=== PATIENT | male | born 1940 | race Caucasian/White ===

== ENCOUNTER → 2016-11-09 | Outpatient (CLI) | payer OTHER ==
[~2016-11-09] MED LIST: CHOL2000 PO; CLC100 PO; CODCAP4; DOCU100C31 PO; DXY100 PO; FLM4 PO; MECL1TAB40 PO; MRLP17 PO; MRLP17X PO; POLY335019 PO; VTMD1000 PO
--- NOTE | 2016-11-09 12:49 | DIAGNOSTIC IMAGING REPORT ---
ULTRASOUND ART DOP LOWER EXT BILAT CLINICAL HISTORY: ARTERIAL INSUFFICIENCY claudication COMPARISON STUDY: None FINDINGS: Real-time as well as Doppler evaluation of the arterial structures of the lower legs was performed. Waveforms are triphasic throughout. Velocity characteristics are unremarkable. Blood pressure indices on the right were not obtainable due to inability to compress vessels. On the left, posterior tibial is 1.13 and dorsalis pedis is 1.61. IMPRESSION: Normal study. No significant stenotic process. Noncompressible right leg arterial vessels possibly due to calcification Electronically signed by: Saravanan Daniel M.D. 11/09/2016 12:48 PM Dictated Date/Time: 11/09/2016 12:45 PM
== END | disposition home or self-care (01) ==
LOC: C.ULTR 11:30
PROVIDERS: ATTEND Family Medicine
DX: I73.89 Other specified peripheral vascular diseases (principal)

== ENCOUNTER 2016-12-30 18:33 | Inpatient (IN) | payer OTHER ==
[~2016-12-30] VITALS: Ht 188 cm; Wt 70.0 kg
[~2016-12-30 18:33] MED LIST changes: -CHOL2000 PO; -CLC100 PO; -DOCU100C31 PO; -DXY100 PO; -FLM4 PO; -MRLP17 PO; -MRLP17X PO; -POLY335019 PO; -VTMD1000 PO
--- NOTE | 2016-12-30 20:14 | DIAGNOSTIC IMAGING REPORT ---
SINGLE VIEW CHEST CLINICAL HISTORY: Generalized weakness. Change in mental status. FINDINGS: An AP, portable, upright chest radiograph is compared to study dated 05/22/2015. The examination is degraded by portable technique and patient rotation. The heart is enlarged and there is atherosclerotic calcification of the thoracic aorta. The pulmonary vasculature is noncongested. Chronic interstitial thickening is similar to previous. A nipple shadow projects over the right lung base. No airspace consolidation, large pleural effusion, or pneumothorax is seen. The skeletal structures are osteopenic. The bony thorax is grossly intact. IMPRESSION: Cardiac enlargement with no acute cardiopulmonary abnormality. Electronically signed by: Mark Arroyo M.D. 12/30/2016 8:12 PM Dictated Date/Time: 12/30/2016 8:11 PM
--- NOTE | 2016-12-30 20:17 | EMERGENCY ROOM VISIT NOTE ---
History Report prepared by Samy: Bernard Pang Under the Supervision of: Dr. Dino Fraser D.O. First contact with patient: 19:48 Chief Complaint: WEAKNESS Stated Complaint: SICK IN STOMACH, WEAK, CANT STAND Nursing Triage Summary: TRIAGE NOTE: Pt reports "i am so weak." reports pt has had weakness x 2 days and "he fell today at dr webb's office, he can't stand up now." pt reports hx of vertigo. reports that "he had x-rays done over there at the office after he fell." pt reports "i don't know if i have lymes disease or what." History of Present Illness The patient is a 76 year old male who presents to the Emergency Room with complaints of constant weakness beginning last night. He currently rates his discomfort an 8/10 in severity. The patient states that he is too weak to stand up, and that this evening he fell. He reports that he is also experiencing back pain, neck pain, calf tenderness, knee joint pain, and vision changes. The patient notes that he went to his PCP and was told to come here because they thought he had a virus. He states that he was bit by a tick a week ago and a small rash was produced. The patient denies chest pain, sob, headache, leg edema , dizziness, and lightheadedness. He denies a history of heart problems, alcohol use, and smoking. Source of History: patient Onset: last night Position: other (global) Symptom Intensity: 8/10 Quality: other (weakness) Timing: constant Associated Symptoms: + neck pain, + back pain, No headache, No chest pain, No SOB Note: Associated symptoms: calf tenderness, knee joint pain, and vision changes. Patient denies leg edema, dizziness, and lightheadedness Review of Systems See HPI for pertinent positives & negatives. A total of 10 systems reviewed and were otherwise negative. Past Medical & Surgical Medical Problems: (1) Ambulatory dysfunction (2) Enlarged prostate (3) Heart disease (4) Hyponatremia (5) Pneumonia (6) Tick bite (7) Weakness Surgical Problems: (1) Hx of cataract surgery Family History Diabetes mellitus FH: cancer FH: heart disease FH: lung disease Hypertension Social History Smoking Status: Never Smoker Alcohol Use: none Drug Use: none Marital Status: Housing Status: lives with family Occupation Status: retired Current/Historical Medications No Active Prescriptions or Reported Meds Allergies Coded Allergies: Dust (Verified Allergy, Intermediate, CONGESTION, ITCHY EYES, SNEEZING, ) Grass (Verified Allergy, Intermediate, CONGESTION, ITCHY EYES, SNEEZING, ) POLLEN (Verified Allergy, Intermediate, CONGESTION, ITCHY EYES, SNEEZING, 12/30/16) Sulfa Antibiotics (Verified Allergy, Intermediate, RASH, 12/30/16) Physical Exam Vital Signs Date Time Temp Pulse Resp B/P (MAP) Pulse Ox O2 Delivery O2 Flow Rate FiO2 12/30/16 22:45 67 20 129/73 99 Room Air 12/30/16 21:05 93 Room Air 12/30/16 21:05 93 Room Air 12/30/16 20:50 73 12/30/16 20:48 70 138/75 72 135/82 75 130/77 12/30/16 20:48 70 20 135/78 98 Room Air 12/30/16 18:40 36.8 79 18 128/77 94 Room Air Physical Exam GENERAL: Patient is awake, alert, and in no acute distress. Patient is resting comfortably and showing no signs of anxiety EYES: The conjunctivae are clear. The pupils are round and reactive. EARS, NOSE, MOUTH AND THROAT: The nose is without any evidence of any deformity. Mucous membranes are moist tongue is midline NECK: The neck is nontender and supple. RESPIRATORY: Normal respiratory effort is noted there is no evidence of wheezing rhonchi or rales CARDIOVASCULAR: Regular rate and rhythm noted there no murmurs rubs or gallops normal S1 normal S2 GASTROINTESTINAL: The abdomen is soft. Bowel sounds are present in all quadrants. Abdomen is nontender MUSCULOSKELETAL/EXTREMITIES: There is no evidence of gross deformity full range of motion is noted in the hips and shoulders SKIN: There is no obvious evidence of any rash. There are no petechiae, pallor or cyanosis noted. Small bite on the inner right knee no definite Lyme rash was appreciated. NEUROLOGIC: Patient is awake alert and oriented x3 strength is symmetric patellar reflexes are 1+ bilaterally Medical Decision & Procedures ER Provider Diagnostic Interpretation: Radiology results as stated below per my review and radiologist interpretation: CT SCAN OF THE BRAIN WITHOUT IV CONTRAST CLINICAL HISTORY: Weakness. Change in mental status. COMPARISON STUDY: CT of the brain dated 07/12/2013. TECHNIQUE: Unenhanced axial CT scan of the brain is performed from the vertex to the skull base. CT DOSE: 537.48 mGy.cm FINDINGS: Brain parenchyma: There are age-related involutional changes noting mild subcortical and periventricular microangiopathic change. There is no hemorrhage, mass effect, or evidence of acute territorial ischemia by CT criteria. Farley-white matter is preserved. No extra-axial fluid collection is seen. Ventricles, sulci, cisterns: Prominent secondary to involutional change. Intracranial vasculature: There is atherosclerotic calcification of the cavernous carotid and vertebral arteries. Calvarium: Unremarkable. Sinuses and mastoids: The visualized paranasal sinuses are clear. The mastoid air cells are well pneumatized. There is cerumen within the right external auditory canal. Orbits: The bony orbits are grossly intact. There are bilateral ocular lens implants. IMPRESSION: There is no hemorrhage, mass effect, or evidence of acute territorial ischemia by CT criteria. Electronically signed by: Mark Arroyo M.D. 12/30/2016 8:49 PM Dictated Date/Time: 12/30/2016 8:46 PM SINGLE VIEW CHEST CLINICAL HISTORY: Generalized weakness. Change in mental status. FINDINGS: An AP, portable, upright chest radiograph is compared to study dated 05/22/2015. The examination is degraded by portable technique and patient rotation. The heart is enlarged and there is atherosclerotic calcification of the thoracic aorta. The pulmonary vasculature is noncongested. Chronic interstitial thickening is similar to previous. A nipple shadow projects over the right lung base. No airspace consolidation, large pleural effusion, or pneumothorax is seen. The skeletal structures are osteopenic. The bony thorax is grossly intact. IMPRESSION: Cardiac enlargement with no acute cardiopulmonary abnormality. Electronically signed by: Mark Arroyo M.D. 12/30/2016 8:12 PM Dictated Date/Time: 12/30/2016 8:11 PM Laboratory Results Test 12/30/16 20:30 12/30/16 20:31 12/30/16 20:45 Prothrombin Time 14.2 SECONDS (9.0-12.0) Prothromb Time International Ratio 1.3 (0.9-1.1) Activated Partial Thromboplast Time 28.0 SECONDS (21.0-31.0) Partial Thromboplastin Ratio 1.1 Total Bilirubin 0.5 mg/dl (0.2-1) Direct Bilirubin 0.1 mg/dl (0-0.2) Aspartate Amino Transf (AST/SGOT) 24 U/L (15-37) Alanine Aminotransferase (ALT/SGPT) 25 U/L (12-78) Alkaline Phosphatase 78 U/L (45-117) Total Creatine Kinase 80 U/L (39-308) Creatine Kinase MB 0.6 ng/ml (0.5-3.6) Creatine Kinase MB Ratio 0.8 (0-3.0) Troponin I < 0.015 ng/ml (0-0.045) Total Protein 6.9 gm/dl (6.4-8.2) Albumin 3.4 gm/dl (3.4-5.0) Thyroid Stimulating Hormone (TSH) 1.540 uIu/ml (0.300-4.500) Lyme Disease IgG Antibody NEG (NEG) Lyme Disease IgM Antibody NEG (NEG) Bedside Glucose 126 mg/dl (70-99) Urine Color DK YELLOW Urine Appearance CLEAR (CLEAR) Urine pH 5.5 (4.5-7.5) Urine Specific Raymond 1.028 (1.000-1.030) Urine Protein 1+ (NEG) Urine Glucose (UA) NEG (NEG) Urine Ketones 1+ (NEG) Urine Occult Blood 2+ (NEG) Urine Nitrite NEG (NEG) Urine Bilirubin NEG (NEG) Urine Urobilinogen NEG (NEG) Urine Leukocyte Esterase NEG (NEG) Urine WBC (Auto) 1-5 /hpf (0-5) Urine RBC (Auto) 5-10 /hpf (0-4) Urine Hyaline Casts (Auto) 1-5 /lpf (0-5) Urine Epithelial Cells (Auto) 20-30 /lpf (0-5) Urine Bacteria (Auto) NEG (NEG) Laboratory results per my review. Medications Administered Medications (Trade) Dose Ordered Sig/Syeda Route Start Time Stop Time Status Last Admin Dose Admin Doxycycline Hyclate (Vibramycin Cap) 100 mg 0008 ONCE PO 12/31/16 00:08 12/31/16 02:04 DC 12/31/16 03:06 100 MG ECG Indication: weakness Rate (beats per minute): 72 Rhythm: sinus rhythm Findings: 1st degree AV block, RBBB, other (No PVC) Comparison ECG Date: 05/22/15 Change: no significant change ED Course 1950: The patient was evaluated in room C08. A complete history and physical examination were performed. 2230: I reevaluated the patient. He agreed to an ambulatory trial. 2241: The ambulatory trial was not successful. 0: Upon reevaluation, the patient is resting. I discussed results and treatment plan with him. He verbalizes agreement and understanding. 2299: I discussed the patients case with Dr. Reyes [facility] Hospitalist. The patient will be evaluated for further treatment. Medical Decision Differential diagnosis: Etiologies such as metabolic, infection, hypo/hyperglycemia, electrolyte abnormalities, cardiac sources, intracerebral event, toxicologic, neurologic, as well as others were entertained. Medication Reconciliation: I attest that I have personally reviewed the patient' s current medications list. Blood pressure screening: Patient was found to have normal blood pressure on screening and does not require follow-up. The patient is a 76-year-old male who presented to the emergency department for an evaluation of multiple complaints. The patient's significant other states that he has been very weak the patient has been having difficulty ambulate. The patient has a history of vertigo but he does not describe vertigo to my history taking. I discussed the patient's laboratory and radiographic studies with him. He did not appear to have any focal neurologic deficits but on ambulation trial he had significant difficulty ambulating and appeared to be overall weak. I discussed his case with the on-call [facility] hospitalist. They've agreed to evaluate the patient in the emergency apartment for further management and disposition. Consults Time Called: 2251 Consulting Physician: Dr. Reyes [facility] Hosptialist Returned Call: [phone] I discussed the patients case with Dr. Reyes [facility] Hospitalist. The patient will be evaluated for further treatment. Impression Primary Impression: Weakness Additional Impression: Ambulatory dysfunction Scribe Attestation The scribe's documentation has been prepared under my direction and personally reviewed by me in its entirety. I confirm that the note above accurately reflects all work, treatment, procedures, and medical decision making performed by me. Departure Information Dispostion Being Evaluated By Hospitalist Prescriptions No Active Prescriptions or Reported Meds Referrals Chapito Mosquera M.D. (PCP) Patient Instructions My [facility] Problem Qualifiers
[2016-12-30 20:45] LABS: BASO % 0.2 %; BASO ABS # 0.01 K/uL (0-0.2); COMPLETE YES; HEMATOCRIT 39.6 % (42-52); LYMPH % 4.9 %; LYMPH ABS # 0.25 K/uL (1.2-3.4); MEAN CELL VOLUME 94.5 fL (80-100); MEAN CORPUSCULAR HEMOGLOBIN 31.7 pg (25-34); MEAN CORPUSCULAR HGB CONC 33.6 g/dl (32-36); MEAN PLATELET VOLUME 11.3 fL (7.4-10.4); MONO % 6.3 %; NEUT % 88.6 %; PLATELET COUNT 121 K/uL (130-400); RED BLOOD COUNT 4.19 M/uL (4.7-6.1)
--- NOTE | 2016-12-30 20:50 | DIAGNOSTIC IMAGING REPORT ---
CT SCAN OF THE BRAIN WITHOUT IV CONTRAST CLINICAL HISTORY: Weakness. Change in mental status. COMPARISON STUDY: CT of the brain dated 07/12/2013. TECHNIQUE: Unenhanced axial CT scan of the brain is performed from the vertex to the skull base. CT DOSE: 537.48 mGy.cm FINDINGS: Brain parenchyma: There are age-related involutional changes noting mild subcortical and periventricular microangiopathic change. There is no hemorrhage, mass effect, or evidence of acute territorial ischemia by CT criteria. Afrley-white matter is preserved. No extra-axial fluid collection is seen. Ventricles, sulci, cisterns: Prominent secondary to involutional change. Intracranial vasculature: There is atherosclerotic calcification of the cavernous carotid and vertebral arteries. Calvarium: Unremarkable. Sinuses and mastoids: The visualized paranasal sinuses are clear. The mastoid air cells are well pneumatized. There is cerumen within the right external auditory canal. Orbits: The bony orbits are grossly intact. There are bilateral ocular lens implants. IMPRESSION: There is no hemorrhage, mass effect, or evidence of acute territorial ischemia by CT criteria. Electronically signed by: Mark Arroyo M.D. 12/30/2016 8:49 PM Dictated Date/Time: 12/30/2016 8:46 PM
[2016-12-30 21:01] LABS: ALT/SGPT 25 U/L (12-78); BLOOD UREA NITROGEN 19 mg/dl (7-18); BUN/CREATININE RATIO 18.5 (10-20); CALCIUM 8.2 mg/dl (8.5-10.1); CARBON DIOXIDE 25 mmol/L (21-32); CHLORIDE 100 mmol/L (98-107); GLUCOSE 121 mg/dl (70-99); MAGNESIUM 2.1 mg/dl (1.8-2.4); POTASSIUM 3.9 mmol/L (3.5-5.1); SODIUM 133 mmol/L (136-145)
[2016-12-30 21:03] LABS: INR 1.3 (0.9-1.1); PARTIAL THROMBOPLASTIN RATIO 1.1; PROTHROMBIN TIME (PATIENT) 14.2 SECONDS (9.0-12.0)
[2016-12-30 21:12] LABS: ALKALINE PHOSPHATASE 78 U/L (45-117); AST/SGOT 24 U/L (15-37); CKMB/CK RATIO 0.8 (0-3.0)
[2016-12-30 21:15] LABS: URINE APPEARANCE CLEAR (CLEAR); URINE BILIRUBIN NEG (NEG); URINE COLOR DK YELLOW; URINE EPITHELIAL CELL AUTO 20-30 /lpf (0-5); URINE NITRITE NEG (NEG); URINE PH 5.5 (4.5-7.5); URINE SPECIFIC GRAVITY 1.028 (1.000-1.030); UROBILINOGEN NEG (NEG)
[2016-12-30 21:19] LABS: MANUAL MICROSCOPIC REQUIRED? NO; REVIEW REQ? NO
[2016-12-30 21:28] LABS: LYME DISEASE AB IGG NEG (NEG); LYME DISEASE AB IGM NEG (NEG)
[2016-12-31] MEDS ORDERED: DOXYCYCLINE HYCLATE 100 MG CAP PO ONE (00:08)
[2016-12-31] MEDS ORDERED: ACETAMINOPHEN 325 MG TAB PO PRN (00:15)
[2016-12-31] MEDS ORDERED: ALUMINUM/MAGNESIUM/SIMETH (MAALOX MAX) 30 ML UDC PO PRN (00:15)
[2016-12-31] MEDS ORDERED: POLYETHYLENE (MIRALAX) 17 GM PACK PO PRN (00:15)
[2016-12-31] MEDS ORDERED: ONDANSETRON INJ 2 MG/ML 2 ML VIAL IV PRN (00:15)
[2016-12-31] MEDS ORDERED: MAGNESIUM HYDROXIDE SUSP 30 ML UDC PO PRN (00:15)
[2016-12-31] MEDS ORDERED: SODIUM CHLORIDE 0.9% 1000ML 1,000 ML IV ONE (00:15)
--- NOTE | 2016-12-31 00:46 | History and Physical ---
History & Physical Date & Time of Service: Dec 31, 2016 at 00:28 Chief Complaint: Sick In Stomach, Weak, Cant Stand Primary Care Physician: Chapito Mosquera M.D. History of Present Illness Source: patient, family The patient is a 76 year old with an unremarkable past medical history who comes to the [facility] ED for evaluation of weakness. The patient notes that the weakness started today. The weakness is in both arms and legs bilaterally but does worse in his legs. He was at the eye doctor today for a routine appointment and by the end of the appointment had difficulty walking and had to be put in a wheelchair. This has never happened to him before. He did not experience LOC or any incontinence. In addition he complaints of generalized muscles, primarily in shoulders and and lower back. States that he is more comfortable lying on his side. Denies any trauma or falls to the back. Has never had this happened to him before. Otherwise, he denies any difficulty with speech or comprehension. States that he has not had any acute visual changes. He has not had any changes to his hearing, or ringing in his ears. He denies peripheral numbness or tingling. States that for many years, he experiences intermittent vertigo which is self- limited, though he did not experience it this time. He is particularly concerned about Lyme disease. States that he had tick bite on his right knee 3 days ago. Has had 3 bites this year alone. Only other medical history is summer allergies. Daughter notes that on Miguel days, he sometimes experiences malaise as well worsening allergy symptoms. He denies history of preceding viral illness. He has never had a CVA or multiple sclerosis. His mother did have a diagnosis of sarcoidosis. In the ED, Lyme serologies were negative. CT brain was negative. Past Medical/Surgical History Medical Problems: (1) Enlarged prostate Status: Chronic (2) Heart disease Status: Chronic (3) Pneumonia Status: Resolved Surgical Problems: (1) Hx of cataract surgery Status: Resolved Family History Diabetes mellitus FH: cancer FH: heart disease FH: lung disease Hypertension Sarcoidosis in mother Social History Smoking Status: Never Smoker Smokeless Tobacco Use: No Alcohol Use: none Drug Use: none Marital Status: Housing status: lives with significant other Occupational Status: retired Allergies Coded Allergies: Dust (Verified Allergy, Intermediate, CONGESTION, ITCHY EYES, SNEEZING, ) Grass (Verified Allergy, Intermediate, CONGESTION, ITCHY EYES, SNEEZING, ) POLLEN (Verified Allergy, Intermediate, CONGESTION, ITCHY EYES, SNEEZING, 12/30/16) Sulfa Antibiotics (Verified Allergy, Intermediate, RASH, 12/30/16) Home Medications No Active Prescriptions or Reported Meds Review of Systems A 10 point review of systems was negative unless stated above. Physical Exam Vital Signs Date Time Temp Pulse Resp B/P (MAP) Pulse Ox O2 Delivery O2 Flow Rate FiO2 12/30/16 22:45 67 20 129/73 99 Room Air 12/30/16 21:05 93 Room Air 12/30/16 21:05 93 Room Air 12/30/16 20:50 73 12/30/16 20:48 70 138/75 72 135/82 75 130/77 12/30/16 20:48 70 20 135/78 98 Room Air 12/30/16 18:40 36.8 79 18 128/77 94 Room Air General Appearance: WD/WN, no apparent distress Head: normocephalic, atraumatic Eyes: PERRL, EOMI ENT: hearing grossly normal, pharynx normal Neck: supple, no adenopathy, no JVD Respiratory/Chest: lungs clear, no respiratory distress Cardiovascular: regular rate, rhythm, no gallop, no murmur Abdomen/GI: normal bowel sounds, non tender, soft Back: no muscle spasm Extremities/Musculoskelatal: no calf tenderness, no pedal edema Neurologic/Psych: map compiler II-XII nml as tested, no motor/sensory deficits, alert, normal mood/affect, normal reflexes, oriented x 3 Skin: normal color, warm/dry, no rash, + pertinent finding (bite radha in side right knee, with circular margin of erythema) Lymphatic: no adenopathy Diagnostics Laboratory Results Results Past 24 Hours Test 12/30/16 20:30 12/30/16 20:31 12/30/16 20:45 Range/Units White Blood Count 5.10 4.8-10.8 K/uL Red Blood Count 4.19 4.7-6.1 M/uL Hemoglobin 13.3 14.0-18.0 g/dL Hematocrit 39.6 42-52 % Mean Corpuscular Volume 94.5 80-100 fL Mean Corpuscular Hemoglobin 31.7 25-34 pg Mean Corpuscular Hemoglobin Concent 33.6 32-36 g/dl Platelet Count 121 130-400 K/uL Mean Platelet Volume 11.3 7.4-10.4 fL Neutrophils (%) (Auto) 88.6 % Lymphocytes (%) (Auto) 4.9 % Monocytes (%) (Auto) 6.3 % Eosinophils (%) (Auto) 0.0 % Basophils (%) (Auto) 0.2 % Neutrophils # (Auto) 4.52 1.4-6.5 K/uL Lymphocytes # (Auto) 0.25 1.2-3.4 K/uL Monocytes # (Auto) 0.32 0.11-0.59 K/uL Eosinophils # (Auto) 0.00 0-0.5 K/uL Basophils # (Auto) 0.01 0-0.2 K/uL RDW Standard Deviation 44.6 36.4-46.3 fL RDW Coefficient of Variation 13.0 11.5-14.5 % Immature Granulocyte % (Auto) 0.0 % Immature Granulocyte # (Auto) 0.00 0.00-0.02 K/uL Prothrombin Time 14.2 9.0-12.0 SECONDS Prothromb Time International Ratio 1.3 0.9-1.1 Activated Partial Thromboplast Time 28.0 21.0-31.0 SECONDS Partial Thromboplastin Ratio 1.1 Sodium Level 133 136-145 mmol/L Potassium Level 3.9 3.5-5.1 mmol/L Chloride Level 100 98-107 mmol/L Carbon Dioxide Level 25 21-32 mmol/L Anion Gap 8.0 3-11 mmol/L Blood Urea Nitrogen 19 7-18 mg/dl Creatinine 1.00 0.60-1.40 mg/dl Est Creatinine Clear Calc Drug Dose 64.2 ml/min Estimated GFR () 85.6 Estimated GFR (Non- 73.8 BUN/Creatinine Ratio 18.5 10-20 Random Glucose 121 70-99 mg/dl Calcium Level 8.2 8.5-10.1 mg/dl Magnesium Level 2.1 1.8-2.4 mg/dl Total Bilirubin 0.5 0.2-1 mg/dl Direct Bilirubin 0.1 0-0.2 mg/dl Aspartate Amino Transf (AST/SGOT) 24 15-37 U/L Alanine Aminotransferase (ALT/SGPT) 25 12-78 U/L Alkaline Phosphatase 78 45-117 U/L Total Creatine Kinase 80 39-308 U/L Creatine Kinase MB 0.6 0.5-3.6 ng/ml Creatine Kinase MB Ratio 0.8 0-3.0 Troponin I < 0.015 0-0.045 ng/ml Total Protein 6.9 6.4-8.2 gm/dl Albumin 3.4 3.4-5.0 gm/dl Thyroid Stimulating Hormone (TSH) 1.540 0.300-4.500 uIu/ml Lyme Disease IgG Antibody NEG NEG Lyme Disease IgM Antibody NEG NEG Bedside Glucose 126 70-99 mg/dl Urine Color DK YELLOW Urine Appearance CLEAR CLEAR Urine pH 5.5 4.5-7.5 Urine Specific [place] 1.028 1.000-1.030 Urine Protein 1+ NEG Urine Glucose (UA) NEG NEG Urine Ketones 1+ NEG Urine Occult Blood 2+ NEG Urine Nitrite NEG NEG Urine Bilirubin NEG NEG Urine Urobilinogen NEG NEG Urine Leukocyte Esterase NEG NEG Urine WBC (Auto) 1-5 0-5 /hpf Urine RBC (Auto) 5-10 0-4 /hpf Urine Hyaline Casts (Auto) 1-5 0-5 /lpf Urine Epithelial Cells (Auto) 20-30 0-5 /lpf Urine Bacteria (Auto) NEG NEG Diagnostic Radiology SINGLE VIEW CHEST CLINICAL HISTORY: Generalized weakness. Change in mental status. FINDINGS: An AP, portable, upright chest radiograph is compared to study dated 05/22/2015. The examination is degraded by portable technique and patient rotation. The heart is enlarged and there is atherosclerotic calcification of the thoracic aorta. The pulmonary vasculature is noncongested. Chronic interstitial thickening is similar to previous. A nipple shadow projects over the right lung base. No airspace consolidation, large pleural effusion, or pneumothorax is seen. The skeletal structures are osteopenic. The bony thorax is grossly intact. IMPRESSION: Cardiac enlargement with no acute cardiopulmonary abnormality. Electronically signed by: Mark Arroyo M.D. 12/30/2016 8:12 PM Dictated Date/Time: 12/30/2016 8:[address] SCAN OF THE BRAIN WITHOUT IV CONTRAST CLINICAL HISTORY: Weakness. Change in mental status. COMPARISON STUDY: CT of the brain dated 07/12/2013. TECHNIQUE: Unenhanced axial CT scan of the brain is performed from the vertex to the skull base. CT DOSE: 537.48 mGy.cm FINDINGS: Brain parenchyma: There are age-related involutional changes noting mild subcortical and periventricular microangiopathic change. There is no hemorrhage, mass effect, or evidence of acute territorial ischemia by CT criteria. Farley-white matter is preserved. No extra-axial fluid collection is seen. Ventricles, sulci, cisterns: Prominent secondary to involutional change. Intracranial vasculature: There is atherosclerotic calcification of the cavernous carotid and vertebral arteries. Calvarium: Unremarkable. Sinuses and mastoids: The visualized paranasal sinuses are clear. The mastoid air cells are well pneumatized. There is cerumen within the right external auditory canal. Orbits: The bony orbits are grossly intact. There are bilateral ocular lens implants. IMPRESSION: There is no hemorrhage, mass effect, or evidence of acute territorial ischemia by CT criteria. Electronically signed by: Mark Arroyo M.D. 12/30/2016 8:49 PM Dictated Date/Time: 12/30/2016 8:46 PM The status of this report is Signed. Draft = Not yet reviewed or approved by Radiologist. Signed = Reviewed and approved by Radiologist. CXR normal EKG Sinus Rhythm with 1st degree AV Block RBBB Impression Assessment and Plan (1) Weakness Assessment & Plan: - First episode - Seems generalized rather than focal, making CVA less likely in my differential - Generalized nature or reported ssx without focal findings makes MS/Clinically isolated syndrome less likely Can consider MRI brain evaluation if patient does not improve - Considered possibility of GB, though there is no preceding illness reported weakness seems global. Though worse in legs, there is no ascending pattern. - Does have lower back pain but lower extremity examination is normal; less likely to have spinal cord impingement in lumbar region - CT brain negative - Has history of malaise with exposed to sun; ?query photosensitivity related to porphyria? Check urine porphyrinogen - Check for nutritional deficiencies: B12, Folate, Vitamin D - Will treat for Lyme disease empirically - Will hydrate overnight: 1 L NSS Bolus followed by 125 ml/hr maintenance rate (2) Ambulatory dysfunction Assessment & Plan: - OT and PT ordered for evaluations (3) Tick bite Assessment & Plan: - Serologies in ED - Bite noted 3 days ago; likely patient has not seroconverted yet - Patient will be treated empirically: Doxycycline 100 mg BID and monitor for response (4) Hyponatremia Assessment & Plan: - Na 133, very mild - Mentating well - Hydrate and monitor BMP daily DVT prophylaxis - SCD - Lovenox 40 mg daily Code Status - Level I Code Disposition - Med/Surg - PT/OT evaluate and treat orders Level of Care Med/Surg Resuscitation Status FULL RESUSCITATION VTE Prophylaxis VTE Risk Assessment Done? Y/N: Yes Risk Level: Moderate Given or contraindicated: Enoxaparin (Lovenox)SQ Note Resident Physician Supervision Note: I was present with Dr. Coates during the history and exam. I discussed the case with the resident and agree with the findings and plan as documented in the note. Any exceptions or clarifications are listed here: 76 y/o M who denies active medical issues presenting with fever and significant weakness. He is unable to support his own weight and had a temp of 102 the night prior to admission. He describes recent tick exposure and does not have additional focal symptoms such as a cough, dysuria or diarrhea. O/E S1,2 R CTAB NT, ND No CCE multiple macular areas of hyperpigmentation and facial erythema which are chronic - post popliteal rash which may be acute P: Pt admitted for supportive Tx - IVF, PT/OT, atipyretics Will w/u for tick-borne illness as this is the most likely etiology Started on Doxycycline As an aside, he states that his daughter is in her 8th year of treatment for chronic lyme disease - if there is no infectious diagnosis and symptoms persist , it may be worth testing for porphyria as he frequently develops UV related rashes and now has a fever, lower extremity and generalized weakness. Documented By: Jose Reyes
[2016-12-31 01:06] VITALS: BP 149/75; PULSE 74; TEMP 36.9; O2SAT 100; Ht 188 cm; Wt 70.0 kg
[2016-12-31] MEDS: NSS + 20MEQ KCL 1000ML 1,000 ML IV SCH ×2 (03:13→10:33)
[2016-12-31 07:44] VITALS: BP_SYST 115; BP_SYST 93; BP_DIAS 58; BP_DIAS 64; PULSE 74; PULSE 76; TEMP 36.6; O2SAT 96
[2016-12-31] MEDS: DOXYCYCLINE HYCLATE 100 MG CAP PO SCH ×2 (07:44→19:40)
[2016-12-31] MEDS: ENOXAPARIN 40 MG/0.4 ML SYR SQ SCH (07:45)
[2016-12-31 08:00] LABS: BASO % 0.2 %; BASO ABS # 0.01 K/uL (0-0.2); COMPLETE YES; IG% 0.2 %; LYMPH % 7.4 %; LYMPH ABS # 0.32 K/uL (1.2-3.4); MEAN CELL VOLUME 94.4 fL (80-100); MEAN CORPUSCULAR HEMOGLOBIN 31.5 pg (25-34); MEAN CORPUSCULAR HGB CONC 33.3 g/dl (32-36); MEAN PLATELET VOLUME 11.6 fL (7.4-10.4); MONO % 3.7 %; NEUT % 88.5 %; PLATELET COUNT 103 K/uL (130-400); RED BLOOD COUNT 4.13 M/uL (4.7-6.1)
[2016-12-31 08:35] LABS: BUN/CREATININE RATIO 15.3 (10-20); CALCIUM 8.3 mg/dl (8.5-10.1); MAGNESIUM 2.1 mg/dl (1.8-2.4); PHOSPHORUS 2.2 mg/dl (2.5-4.9); POTASSIUM 3.7 mmol/L (3.5-5.1)
--- NOTE | 2016-12-31 14:56 | Hospitalist Progress Note ---
Hospitalist Progress Note Date of Service Dec 31, 2016. (Dinorah Read ., PA-C) Subjective Pt evaluation today including: conversation w/ patient, conversation w/ family (- at bedside), physical exam, chart review, lab review, review of studies, review of inpatient medication list Voiding: voiding difficulty Patient states he is feeling unwell today. He tried to work w/ PT earlier and got extremely dizzy/lightheaded/weak. He admits that his weakness has slowly been worsening, but severely worsened the last 1-2 days. +diffuse muscle/joint aches- most notable in hips/lower spine. Patient admits to BPH- states he follows w/ his PCP- +frequency/hesitancy. Admits to ongoing on/off lower lumbar pain for "sometime" now Denies weight loss- states he has been 150 lb for years now He is eating and drinking OK. +tick bite 3-4 days ago and several in the past year. Patient denies any fever, sweats, vision changes, CP, palpitations, edema, SOB, wheezing, cough, abdominal pain, nausea, vomiting, diarrhea, urinary symptoms, melena, numbness/tingling, anxiety/depression, active bleeding, or new skin discoloration/changes. at bedside- she has noted a slow decline in patient, but on Tuesday/ she noticed significant decline in physical capacity. She denies noticing confusion, slurred speech, facial droop, or unilateral muscle weakness - states he just became generally weak. (Dinorah Read ., PA-C) Medications Current Inpatient Medications Medications (Trade) Dose Ordered Sig/Syeda Route Start Time Stop Time Status Last Admin Dose Admin Enoxaparin Sodium (Lovenox Inj) 40 mg Q24H SQ 12/31/16 08:00 01/30/17 07:59 12/31/16 07:45 40 MG Acetaminophen (Tylenol Tab) 650 mg Q4H PRN PO 12/31/16 00:15 01/30/17 00:14 Al Hydrox/Mg Hydrox/Simethicone (Maalox Max Susp) 15 ml Q4H PRN PO 12/31/16 00:15 01/30/17 00:14 Magnesium Hydroxide (Milk Of Magnesia Susp) 30 ml Q6H PRN PO 12/31/16 00:15 01/30/17 00:14 Polyethylene (Miralax Powder Packet) 17 gm DAILY PRN PO 12/31/16 00:15 01/30/17 00:14 Ondansetron HCl (Zofran Inj) 4 mg Q6H PRN IV 12/31/16 00:15 01/30/17 00:14 Doxycycline Hyclate (Vibramycin Cap) 100 mg BID PO 12/31/16 08:00 01/10/17 08:59 12/31/16 07:44 100 MG Potassium Chloride/Sodium Chloride 1,000 ml @ 125 mls/hr Q8H IV 12/31/16 02:30 01/30/17 02:29 12/31/16 10:33 125 MLS/HR (Dinorah Read, PA-C) Objective Vital Signs Date Time Temp Pulse Resp B/P (MAP) Pulse Ox O2 Delivery O2 Flow Rate FiO2 12/31/16 08:00 Room Air 12/31/16 07:44 36.6 74 16 115/64 (81) 96 Room Air 76 93/58 (70) 76 93/58 (70) 12/31/16 01:06 36.9 74 18 149/75 100 Room Air 12/31/16 01:00 Room Air 12/31/16 00:55 71 18 121/73 100 12/30/16 22:45 67 20 129/73 99 Room Air 12/30/16 21:05 93 Room Air 12/30/16 21:05 93 Room Air 12/30/16 20:50 73 12/30/16 20:48 70 138/75 72 135/82 75 130/77 12/30/16 20:48 70 20 135/78 98 Room Air 12/30/16 18:40 36.8 79 18 128/77 94 Room Air (Dinorah Read, PA-C) Physical Exam General Appearance: no apparent distress, + thin Eyes: normal inspection, PERRL ENT: hearing grossly normal Neck: supple Respiratory/Chest: lungs clear, no respiratory distress, no accessory muscle use Cardiovascular: regular rate, rhythm Abdomen: normal bowel sounds, non tender, soft Extremities: no pedal edema, no calf tenderness Neurologic/Psychiatric: no motor/sensory deficits, alert, normal mood/affect, oriented x 3 Skin: normal color, warm/dry, + pertinent finding (flushed cheeks ) (Dinorah Read PA-C) Laboratory Results Last 24 Hours Test 12/30/16 20:30 12/30/16 20:31 12/30/16 20:45 12/31/16 02:40 White Blood Count 5.10 K/uL Red Blood Count 4.19 M/uL Hemoglobin 13.3 g/dL Hematocrit 39.6 % Mean Corpuscular Volume 94.5 fL Mean Corpuscular Hemoglobin 31.7 pg Mean Corpuscular Hemoglobin Concent 33.6 g/dl Platelet Count 121 K/uL Mean Platelet Volume 11.3 fL Neutrophils (%) (Auto) 88.6 % Lymphocytes (%) (Auto) 4.9 % Monocytes (%) (Auto) 6.3 % Eosinophils (%) (Auto) 0.0 % Basophils (%) (Auto) 0.2 % Neutrophils # (Auto) 4.52 K/uL Lymphocytes # (Auto) 0.25 K/uL Monocytes # (Auto) 0.32 K/uL Eosinophils # (Auto) 0.00 K/uL Basophils # (Auto) 0.01 K/uL RDW Standard Deviation 44.6 fL RDW Coefficient of Variation 13.0 % Immature Granulocyte % (Auto) 0.0 % Immature Granulocyte # (Auto) 0.00 K/uL Prothrombin Time 14.2 SECONDS Prothromb Time International Ratio 1.3 Activated Partial Thromboplast Time 28.0 SECONDS Partial Thromboplastin Ratio 1.1 Sodium Level 133 mmol/L Potassium Level 3.9 mmol/L Chloride Level 100 mmol/L Carbon Dioxide Level 25 mmol/L Anion Gap 8.0 mmol/L Blood Urea Nitrogen 19 mg/dl Creatinine 1.00 mg/dl Est Creatinine Clear Calc Drug Dose 64.2 ml/min Estimated GFR () 85.6 Estimated GFR (Non- 73.8 BUN/Creatinine Ratio 18.5 Random Glucose 121 mg/dl Calcium Level 8.2 mg/dl Magnesium Level 2.1 mg/dl Total Bilirubin 0.5 mg/dl Direct Bilirubin 0.1 mg/dl Aspartate Amino Transf (AST/SGOT) 24 U/L Alanine Aminotransferase (ALT/SGPT) 25 U/L Alkaline Phosphatase 78 U/L Total Creatine Kinase 80 U/L Creatine Kinase MB 0.6 ng/ml Creatine Kinase MB Ratio 0.8 Troponin I < 0.015 ng/ml Total Protein 6.9 gm/dl Albumin 3.4 gm/dl Thyroid Stimulating Hormone (TSH) 1.540 uIu/ml Lyme Disease IgG Antibody NEG Lyme Disease IgM Antibody NEG Bedside Glucose 126 mg/dl Urine Color DK YELLOW Urine Appearance CLEAR Urine pH 5.5 Urine Specific [place] 1.028 Urine Protein 1+ Urine Glucose (UA) NEG Urine Ketones 1+ Urine Occult Blood 2+ Urine Nitrite NEG Urine Bilirubin NEG Urine Urobilinogen NEG Urine Leukocyte Esterase NEG Urine WBC (Auto) 1-5 /hpf Urine RBC (Auto) 5-10 /hpf Urine Hyaline Casts (Auto) 1-5 /lpf Urine Epithelial Cells (Auto) 20-30 /lpf Urine Bacteria (Auto) NEG Test 12/31/16 07:42 White Blood Count 4.30 K/uL Red Blood Count 4.13 M/uL Hemoglobin 13.0 g/dL Hematocrit 39.0 % Mean Corpuscular Volume 94.4 fL Mean Corpuscular Hemoglobin 31.5 pg Mean Corpuscular Hemoglobin Concent 33.3 g/dl Platelet Count 103 K/uL Mean Platelet Volume 11.6 fL Neutrophils (%) (Auto) 88.5 % Lymphocytes (%) (Auto) 7.4 % Monocytes (%) (Auto) 3.7 % Eosinophils (%) (Auto) 0.0 % Basophils (%) (Auto) 0.2 % Neutrophils # (Auto) 3.80 K/uL Lymphocytes # (Auto) 0.32 K/uL Monocytes # (Auto) 0.16 K/uL Eosinophils # (Auto) 0.00 K/uL Basophils # (Auto) 0.01 K/uL RDW Standard Deviation 44.4 fL RDW Coefficient of Variation 12.8 % Immature Granulocyte % (Auto) 0.2 % Immature Granulocyte # (Auto) 0.01 K/uL Sodium Level 136 mmol/L Potassium Level 3.7 mmol/L Chloride Level 104 mmol/L Carbon Dioxide Level 24 mmol/L Anion Gap 8.0 mmol/L Blood Urea Nitrogen 15 mg/dl Creatinine 1.00 mg/dl Est Creatinine Clear Calc Drug Dose 64.2 ml/min Estimated GFR () 85.6 Estimated GFR (Non- 73.8 BUN/Creatinine Ratio 15.3 Random Glucose 121 mg/dl Calcium Level 8.3 mg/dl Phosphorus Level 2.2 mg/dl Magnesium Level 2.1 mg/dl Vitamin B12 Level 540 pg/mL 25-Hydroxy Vitamin D Total 16.5 ng/ml Folate 13.85 ng/mL (Dinorah Read, MARY) Assessment and Plan The patient is a 76 year old with an unremarkable past medical history who comes to the [facility] ED for evaluation of weakness. Generalized weakness/ambulatory dysfunction, etiology unknown: - Admit to med/surg - Treated w/ IV NS + 20 mEq KCL - Head CT- unremarkable for acute process - CXR- unremarkable for acute cardiopulmonary processes, cardiomegaly noted - CPK WNL - Urine porphyrinogen pending - b12/folate and TSH WNL - Orthostatic BP reviewed Vitamin D deficiency at 16.5: - Vitamin D supplement 1000 IU daily - Follow-up w/ PCP Tick bite 3 days ago w/ generalized weakness/dizziness/body and muscle aches- no rashes: - Started empirically on Doxycycline 100 mg BID and monitor for response -- Lyme screen negative- unlikely would result in +IgM that rapidly Chronic anemia, baseline hgb 13.0- STABLE: Follow CBC Thrombocytopenia- STABLE: Follow CBC Mild hyponatremia- RESOLVED: Treated w/ IV NS + 20 mEq KCL GI Prophylaxis: Maalox PRN, IV Zofran PRN, Colace and/or Milk of Mag PRN DVT prophylaxis: Lovenox 40 mg daily Code Status: LEVEL I, FULL Dispo: From home, lives w/ - PT/OT- recommending acute rehab- pt agreeable if needed- social media director following (Dinorah Read PA-C) Reviewed: Pt Seen/Exam by Me (Yazmin Olea MD) History Physician Ratoprinter Supervision Note: I interviewed and examined the patient. Discussed with EDUAR Read and agree with findings and plan as documented in the note. Any exceptions or clarifications are listed here: Pt feels only slightly improved from admission. He reports a long history now of lower urinary tract symptoms with nocturia q1-2 hours every night. Now with fever, progressively worsening weakness, some recent lower back pain. With persistent microscopic hematuria here. Daughter reports the erythema on his nose and cheeks is chronic. VSS, thin, NAD Alert, awake, speaks slowly but clearly RRR no mgr CTAB no wcr Abd +BS, soft, NT Ext: no edema Skin: face with rosacea on cheeks and nose; right medial knee with faint erythematous pinpoint lesion, no other erythema or rash 76 yo male here with progressive weakness more acute in the last 2-3 days, fever , recent tick bit but also with significant LUTS, microscopic hematuria, and recent development of lower back pain. Started on doxy to cover for tick borne illness. This should also cover for acute prostatitis too. Also with a chronic pancytopenia. -follow Ur cx -check PSA -continue doxy -check Renal CT for workup for microscopic hematuria, consult Urology in the AM -start Flomax Documented By: Yazmin Olea (Yazmin Olea MD)
[2016-12-31 16:25] VITALS: BP 142/69; PULSE 71; TEMP 37.4; O2SAT 96
[2016-12-31] MEDS: CHOLECALCIFEROL 1000 INTER.UNIT TAB PO SCH (17:38)
[2016-12-31 19:08] LABS: URINE APPEARANCE CLEAR (CLEAR); URINE BILIRUBIN NEG (NEG); URINE COLOR YELLOW; URINE NITRITE NEG (NEG); URINE PH 5.5 (4.5-7.5); URINE SPECIFIC GRAVITY 1.026 (1.000-1.030); UROBILINOGEN NEG (NEG)
[2016-12-31 19:09] LABS: MANUAL MICROSCOPIC REQUIRED? NO; REVIEW REQ? NO
[2017-01-01 00:27] VITALS: BP 145/75; PULSE 61; TEMP 37.1; O2SAT 97
[2017-01-01] MEDS ORDERED: ERGOCALCIFEROL 50,000 INTER.UNIT CAP PO SCH (07:00)
[2017-01-01 07:22] VITALS: BP_SYST 125; BP_SYST 131; BP_DIAS 65; BP_DIAS 74; PULSE 66; PULSE 67; TEMP 37.4; O2SAT 95
[2017-01-01 07:40] LABS: BUN/CREATININE RATIO 18.1 (10-20); CREATININE 0.88 mg/dl (0.60-1.40); HEMATOCRIT 34.5 % (42-52); MEAN CELL VOLUME 93.8 fL (80-100); MEAN CORPUSCULAR HEMOGLOBIN 32.6 pg (25-34); MEAN CORPUSCULAR HGB CONC 34.8 g/dl (32-36); MEAN PLATELET VOLUME 12.4 fL (7.4-10.4); PLATELET COUNT 85 K/uL (130-400); POTASSIUM 3.5 mmol/L (3.5-5.1); RED BLOOD COUNT 3.68 M/uL (4.7-6.1); WHITE BLOOD COUNT 2.73 K/uL (4.8-10.8)
[2017-01-01 07:41] LABS: BASO % 1.1 %; BASO ABS # 0.03 K/uL (0-0.2); COMPLETE YES; IG% 0.7 %; LYMPH ABS # 0.71 K/uL (1.2-3.4); MONO % 10.3 %; NEUT % 61.9 %; PLT ESTIMATE DECREASED
[2017-01-01 07:45] LABS: PROSTATE SPECIFIC ANTIGEN 3.01 ng/ml (0.000-4.000)
[2017-01-01] MEDS: CHOLECALCIFEROL 1000 INTER.UNIT TAB PO SCH (08:02)
[2017-01-01] MEDS: DOXYCYCLINE HYCLATE 100 MG CAP PO SCH ×2 (08:03→20:28)
[2017-01-01] MEDS: TAMSULOSIN HCL 0.4 MG CAP PO SCH (08:03)
[2017-01-01] MEDS: ENOXAPARIN 40 MG/0.4 ML SYR SQ SCH (08:03)
[2017-01-01] MEDS ORDERED: OPTIRAY 320 IV PRN (08:45)
--- NOTE | 2017-01-01 09:38 | DIAGNOSTIC IMAGING REPORT ---
CT SCAN OF THE ABDOMEN COMBO RENAL MASS PROTOCOL CLINICAL HISTORY: Hematuria. Low back pain. COMPARISON STUDY: No priors. TECHNIQUE: Before and following the IV administration of 120 cc of Optiray 320, CT scan of the abdomen is performed from the lung bases to the pelvic inlet utilizing the renal mass protocol. Images are reviewed in the axial, sagittal, and coronal planes. IV contrast was administered without complication. Automated dose control exposure was utilized. CT DOSE: 756.66 mGy.cm FINDINGS: Lung bases: The heart is enlarged and without pericardial effusion. There are coronary artery calcifications. There are trace pleural effusions with dependent atelectasis. Emphysema is suggestive the lung bases. There is no airspace consolidation typical for pneumonia. Linear atelectasis versus scarring is seen in the right lower lobe. Liver: The contrast-enhanced liver is normal in size, contour, and attenuation. There is no intrahepatic biliary ductal dilatation. The hepatic veins and portal veins are patent. A subcentimeter hypodensity in the inferior right lobe of liver seen image #141 May represent a cyst but is too small for definitive characterization. Gallbladder: Not identified and presumed surgically absent. Spleen: Normal in size and attenuation. Pancreas: Moderately atrophic and grossly unremarkable. Adrenal glands: Unremarkable. Kidneys: No renal calculi are identified on the unenhanced series. The contrast enhanced kidneys demonstrate mild cortical atrophy and are without hydronephrosis. The kidneys enhance and excrete symmetrically. No enhancing renal cortical mass is identified. There is no evidence of urothelial lesion within the renal pelvis bilaterally or along the course of the proximal ureters. There is a 9 mm simple cyst identified in the lower pole of the left kidney. A 3.4 cm simple cyst is seen in the interpolar right kidney. Additional smaller cysts and too small to characterize cortical hypodensities are seen in both kidneys. The proximal left renal vein is distended measuring up to 1.7 cm. This focally narrows as it passes posterior to the superior mesenteric artery suggesting Nutcracker Syndrome. Abdominal vasculature: The abdominal aorta is normal in course and caliber noting moderate atherosclerotic calcification. Bowel: Visualized portions of the small bowel and colon are normal in course and caliber. There is moderate to severe constipation. Peritoneum: There is no intraperitoneal free air or abdominal ascites. Lymphadenopathy: None. Skeletal structures: The skeletal structures are osteopenic. No lytic or blastic lesions are seen. IMPRESSION: 1. The kidneys demonstrate mild cortical atrophy and are without hydronephrosis. No renal calculi are identified. 2. There is no enhancing renal cortical mass. No evidence of urothelial lesion is seen within the renal pelvis bilaterally or involving the proximal ureters. 3. The proximal left renal vein is markedly dilated and focally narrows as it passes posterior to the superior mesenteric artery. The appearance strongly suggests Nutcracker Syndrome. Follow-up with urology is recommended. 4. There are large bilateral renal cysts. 5. Cardiomegaly and suspect emphysema. 6. Trace pleural effusions. 7. Moderate to severe constipation. 8. Additional findings as above. Electronically signed by: Mark Arroyo M.D. 01/01/2017 9:37 AM Dictated Date/Time: 01/01/2017 9:27 AM
--- NOTE | 2017-01-01 10:48 | Urology Consultation ---
History General Date of Service: Jan 01, 2017. Primary Care Physician: Chapito Mosquera M.D. Pt seen a urologist before?: No History of Present Illness 76 y/o Male who was admitted with weakness. During evaluation he was found to have microhematuria, fever, and urinary complaints. Urology was then consulted. Pt states that he has daytime urinary urge and freq. Slower stream. No hematuria. Occ dysuria. He feels like he is able to empty his bladder. Nocturia. At night he gets up every few hours and sometimes every hour. He denies seeing a Urologist in the past. He states that his PCP does routine DREs and he has been told he has an enlarged prostate. He is currently taking Flomax. Urine cx is pending. Cr: 0.88. WBC: NML. UA shows blood. A CT scan was performed which revealed no renal masses and no hydronephrosis. No kidney stones. There were renal cysts which appeared to be benign in nature. The was questionable compression of the left renal vein with possible Nutcracker Syndrome. Laboratory Labs were reviewed and are within normal limits unless listed below. Labs are available in the chart and at [facility] Past History BPH, coronary artery disease, other Pt had a problem w anesthesia?: No Past Surgical History: other Family History Diabetes mellitus FH: cancer FH: heart disease FH: lung disease Hypertension Social History Smoking: no current use Alcohol: no current use Marital status: Housing status: lives with significant other Occupation status: retired Allergies Coded Allergies: Dust (Verified Allergy, Intermediate, CONGESTION, ITCHY EYES, SNEEZING, ) Grass (Verified Allergy, Intermediate, CONGESTION, ITCHY EYES, SNEEZING, ) POLLEN (Verified Allergy, Intermediate, CONGESTION, ITCHY EYES, SNEEZING, 12/30/16) Sulfa Antibiotics (Verified Allergy, Intermediate, RASH, 12/30/16) Medications Home Medications: Home Meds and Scripts Medications Dose Route/Sig Max Daily Dose Days Date Category No Active Prescriptions or Reported Medications Rx Inpatient Medications: Current Inpatient Medications Medications (Trade) Dose Ordered Sig/Syeda Route Start Time Stop Time Status Last Admin Dose Admin Enoxaparin Sodium (Lovenox Inj) 40 mg Q24H SQ 12/31/16 08:00 01/30/17 07:59 01/01/17 08:03 40 MG Acetaminophen (Tylenol Tab) 650 mg Q4H PRN PO 12/31/16 00:15 01/30/17 00:14 Al Hydrox/Mg Hydrox/Simethicone (Maalox Max Susp) 15 ml Q4H PRN PO 12/31/16 00:15 01/30/17 00:14 Magnesium Hydroxide (Milk Of Magnesia Susp) 30 ml Q6H PRN PO 12/31/16 00:15 01/30/17 00:14 Polyethylene (Miralax Powder Packet) 17 gm DAILY PRN PO 12/31/16 00:15 01/30/17 00:14 Ondansetron HCl (Zofran Inj) 4 mg Q6H PRN IV 12/31/16 00:15 01/30/17 00:14 Doxycycline Hyclate (Vibramycin Cap) 100 mg BID PO 12/31/16 08:00 01/10/17 08:59 01/01/17 08:03 100 MG Cholecalciferol (Vitamin D Tab) 1,000 inter.unit QAM PO 12/31/16 16:00 01/30/17 15:59 01/01/17 08:02 1,000 INTER.UNIT Tamsulosin HCl (Flomax Cap) 0.4 mg QAM PO 01/01/17 08:00 01/31/17 07:59 01/01/17 08:03 0.4 MG Ioversol (Optiray 320) 125 ml UD PRN IV 01/01/17 08:45 01/05/17 08:44 Review of Systems Review of Systems Constitutional: + fever Eyes: + blurred vision Neurological: + dizzy Gastrointestinal: No abdominal pain Cardiovascular: No chest pain Skin: No rash Musculoskeletal: + joint pain Blood / Lymphatic: No bleed easily Ears / Nose / Throat: No hearing loss Psychologic / Mental: + difficulty sleeping Male : + frequent urination, + weak stream All Other Systems: Reviewed and Negative Physical Exam Vital Signs: Vital Signs Past 12 Hours Date Time Temp Pulse Resp B/P (MAP) Pulse Ox O2 Delivery O2 Flow Rate FiO2 01/01/17 08:15 Room Air 01/01/17 07:22 37.4 67 20 125/65 (85) 95 66 131/74 (93) 01/01/17 00:27 37.1 61 18 145/75 (98) 97 Room Air 01/01/17 00:00 Room Air Physical Exam: General Appearance: WD/WN, no apparent distress ENT: normal ENT inspection Neck: supple Respiratory/Chest: lungs clear Cardiovascular: regular rate, rhythm Extremities: non-tender 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 Expected voiding complaints for someone his age. Urine culture pending. If that returns positive then treat accordingly. CT scan revealed b/l renal cysts with no other cause of hematuria. As for the Nutcracker Syndrome, vascular surgery could be consulted to further discuss. The patient is content with his current voiding situation and isn't interested in adding any more medications at this time. Flomax can be switched to a PM dose if he continues to have issues with weakness and/or orthostatic hypotension. Additional options would be to add Proscar or perform cysto as an outpatient. Will continue to observe for now.
[2017-01-01] MEDS ORDERED: FLM4 PO (14:42)
[2017-01-01] MEDS ORDERED: MRLP17X PO (14:42)
[2017-01-01] MEDS ORDERED: DXY100 PO (14:42)
[2017-01-01] MEDS ORDERED: VTMD1000 PO (14:42)
[2017-01-01 14:58] VITALS: BP 99/66; PULSE 72; TEMP 36; O2SAT 99
--- NOTE | 2017-01-01 17:46 | DIAGNOSTIC IMAGING REPORT ---
SKELETAL SURVEY CLINICAL HISTORY: Pancytopenia. Diffuse body pain. COMPARISON STUDY: CT of the brain dated 12/30/2016. Abdominal CT dated 01/01/2017. Chest x-ray dated 12/30/2016. FINDINGS: 17 radiographs from a skeletal survey are presented. No lytic or blastic bony lesions are suspected throughout the axial or appendicular skeleton. The calvarium appears intact. The visualized paranasal sinuses appear clear. The bony orbits are intact as visualized. Degenerative change is noted throughout the spine. The heart is enlarged and there is atherosclerotic calcification of the thoracic aorta. Emphysema is suggested. Chronic interstitial thickening is noted. No airspace consolidation or pleural effusion is identified. There is a nonobstructed abdominal bowel gas pattern noting moderate to severe constipation. Excreted IV contrast is present within the bladder. There is atherosclerotic calcification of the abdominal aorta. Atherosclerotic calcification is also seen within the femoral arteries bilaterally. The humeri and femurs are normal as visualized. IMPRESSION: 1. Normal skeletal survey. No destructive bony process is identified. 2. Cardiomegaly and emphysema. 3. Moderate to severe constipation. Electronically signed by: Mark Arroyo M.D. 01/01/2017 5:44 PM Dictated Date/Time: 01/01/2017 5:42 PM
[2017-01-01] MEDS ORDERED: POLYETHYLENE (MIRALAX) 17 GM PACK PO ONE (19:13)
[2017-01-01] MEDS ORDERED: BISACODYL 10 MG SUPP PR PRN (19:15)
[2017-01-01] MEDS: DOCUSATE SODIUM 100 MG CAP PO SCH (20:27)
--- NOTE | 2017-01-01 22:19 | Hospitalist Progress Note ---
Hospitalist Progress Note Date of Service Jan 01, 2017. Subjective Pt evaluation today including: conversation w/ patient, conversation w/ family , physical exam Pt feeling a little stronger today but still weak. Discussed his results so far. He was started on Flomax for his urinary symptoms. Xray showed mod-severe constipation and he did have 2 BMs yesterday. Constitutional: No fever Respiratory: + cough (for 2 months, post-nasal gtt related), No shortness of breath Cardiovascular: No chest pain Abdomen: + constipation, No pain Musculoskeletal: + joint pain Objective Vital Signs Date Time Temp Pulse Resp B/P (MAP) Pulse Ox O2 Delivery O2 Flow Rate FiO2 01/01/17 16:15 Room Air 01/01/17 14:58 36.0 72 20 99/66 (77) 99 01/01/17 08:15 Room Air 01/01/17 07:22 37.4 67 20 125/65 (85) 95 66 131/74 (93) 01/01/17 00:27 37.1 61 18 145/75 (98) 97 Room Air 01/01/17 00:00 Room Air Physical Exam General Appearance: no apparent distress, + thin Eyes: normal inspection, sclerae normal ENT: hearing grossly normal Neck: trachea midline Respiratory/Chest: lungs clear, normal breath sounds, no respiratory distress, no accessory muscle use Cardiovascular: regular rate, rhythm, no edema, no gallop, no murmur Abdomen: normal bowel sounds, non tender, soft (with mild distension) Extremities: non-tender, normal inspection, no pedal edema, no calf tenderness Neurologic/Psychiatric: no motor/sensory deficits, alert, normal mood/affect, oriented x 3 Skin: normal color, warm/dry, + rash (mild erythema of nose and cheeks) Laboratory Results Last 24 Hours Test 01/01/17 06:32 White Blood Count 2.73 K/uL Red Blood Count 3.68 M/uL Hemoglobin 12.0 g/dL Hematocrit 34.5 % Mean Corpuscular Volume 93.8 fL Mean Corpuscular Hemoglobin 32.6 pg Mean Corpuscular Hemoglobin Concent 34.8 g/dl Platelet Count 85 K/uL Mean Platelet Volume 12.4 fL Neutrophils (%) (Auto) 61.9 % Lymphocytes (%) (Auto) 26.0 % Monocytes (%) (Auto) 10.3 % Eosinophils (%) (Auto) 0.0 % Basophils (%) (Auto) 1.1 % Neutrophils # (Auto) 1.69 K/uL Lymphocytes # (Auto) 0.71 K/uL Monocytes # (Auto) 0.28 K/uL Eosinophils # (Auto) 0.00 K/uL Basophils # (Auto) 0.03 K/uL RDW Standard Deviation 44.5 fL RDW Coefficient of Variation 12.9 % Immature Granulocyte % (Auto) 0.7 % Immature Granulocyte # (Auto) 0.02 K/uL Platelet Estimate DECREASED Sodium Level 137 mmol/L Potassium Level 3.5 mmol/L Chloride Level 104 mmol/L Carbon Dioxide Level 25 mmol/L Anion Gap 8.0 mmol/L Blood Urea Nitrogen 16 mg/dl Creatinine 0.88 mg/dl Est Creatinine Clear Calc Drug Dose 72.9 ml/min Estimated GFR () 98.1 Estimated GFR (Non- 84.6 BUN/Creatinine Ratio 18.1 Random Glucose 98 mg/dl Calcium Level 8.0 mg/dl Prostate Specific Antigen 3.010 ng/ml Assessment and Plan 76 yo male with PMH of microscopic hematuria and pancytopenia, here with progressive weakness more acute in the last 2-3 days, fever, recent tick bite, and lower back pain. Generalized weakness/ambulatory dysfunction, fever, arthralgias,myalgias, recent tick bite. With acute on chronic pancytopenia. Presumed Lyme disease or Anaplasmosis. Lyme titer negative but could be false negative, too soon to test. Improved from yesterday - Head CT- unremarkable for acute process - CXR- unremarkable for acute cardiopulmonary processes, cardiomegaly noted - CPK WNL - Urine porphyrinogen pending - b12/folate and TSH WNL Skeletal Survey negative - Treated w/ IVF hydration -started doxycycline 100mg po bid and started to have improvement--> finish out 14 day course of doxy -PT/OT evaluations Vitamin D deficiency at 16.5: - Vitamin D supplement 2000 IU daily - Follow-up w/ PCP LUTS (nocturia q1-2 hours every night for years), microscopic hematuria, Nutcracker Syndrome, Renal cysts- persistent microscopic hematuria on UAs since 2010. 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 PSA 3.0, Ur cx negative Urology saw and recommended f/u with Vascular Surgery for evaluation -may need outpatient cystoscopy in future, f/u with Urology -continue Flomax daily Chronic pancytopenia since 2010 at least -mild, a bit worse here now likely secondary to acute illness. -plts down to 85k, no evidence of bleeding. B12, folate, TSH all normal here -follow CBC here and as outpatient until returns to baseline. -Recommend outpatient Hematology referral, may need bone marrow aspiration/bx Rosacea-on face, stable -doxy may help this DVT prophylaxis: Lovenox 40 mg daily Code Status: LEVEL I, FULL Dispo: From home, lives w/ - PT/OT- recommending acute rehab vs home PT Discharge likely tomorrow
[2017-01-02 00:01] VITALS: BP 121/73; PULSE 69; TEMP 36.5; O2SAT 97
[2017-01-02 06:14] LABS: HEMATOCRIT 34.8 % (42-52); MEAN CELL VOLUME 94.1 fL (80-100); MEAN CORPUSCULAR HEMOGLOBIN 31.6 pg (25-34); MEAN CORPUSCULAR HGB CONC 33.6 g/dl (32-36); MEAN PLATELET VOLUME 11.8 fL (7.4-10.4); PLATELET COUNT 95 K/uL (130-400); WHITE BLOOD COUNT 3.11 K/uL (4.8-10.8)
[2017-01-02 06:41] LABS: BUN/CREATININE RATIO 22.9 (10-20); CREATININE 0.84 mg/dl (0.60-1.40); POTASSIUM 3.9 mmol/L (3.5-5.1)
[2017-01-02 06:43] LABS: BASO % 2.6 %; BASO ABS # 0.08 K/uL (0-0.2); COMPLETE YES; ECHINOCYTES 1+; EOS % 1.6 %; IG% 0.3 %; LYMPH % 47.3 %; LYMPH ABS # 1.47 K/uL (1.2-3.4); MONO % 20.6 %; NEUT % 27.6 %
[2017-01-02 07:13] VITALS: BP 111/73; PULSE 67; TEMP 36.6; O2SAT 96
[2017-01-02 07:28] LABS: CALCIUM 8.2 mg/dl (8.5-10.1)
[2017-01-02] MEDS: DOCUSATE SODIUM 100 MG CAP PO SCH (07:46)
[2017-01-02] MEDS: DOXYCYCLINE HYCLATE 100 MG CAP PO SCH (07:46)
[2017-01-02] MEDS: TAMSULOSIN HCL 0.4 MG CAP PO SCH (07:46)
[2017-01-02] MEDS: ENOXAPARIN 40 MG/0.4 ML SYR SQ SCH (07:47)
[2017-01-02] MEDS ORDERED: CHOLECALCIFEROL 1000 INTER.UNIT TAB PO SCH (08:00)
[2017-01-02] MEDS ORDERED: POLYETHYLENE (MIRALAX) 17 GM PACK PO SCH (08:00)
--- NOTE | 2017-01-02 14:08 | Progress Note ---
Subjective Date of Service: Jan 02, 2017. Subjective Pt evaluation today including: conversation w/ patient Voiding: voiding difficulty Stable urinary complaints: Urge, freq, nocturia. Microhematuria. Started on Flomax during this hospitalization. CT scan showed Renal Cysts and possible nutcracker syndrome. Review of Systems All Other Systems: Reviewed and Negative Objective Vital Signs Date Time Temp Pulse Resp B/P (MAP) Pulse Ox O2 Delivery O2 Flow Rate FiO2 01/02/17 08:15 Room Air 01/02/17 07:13 36.6 67 18 111/73 (86) 96 01/02/17 00:01 36.5 69 18 121/73 (89) 97 Room Air 01/02/17 00:00 Room Air 01/01/17 20:00 Room Air 01/01/17 16:15 Room Air 01/01/17 14:58 36.0 72 20 99/66 (77) 99 Physical Exam General Appearance: WD/WN Cardiovascular: regular rate, rhythm Abdomen: non tender Neurologic/Psychiatric: alert Skin: warm/dry Laboratory Results Last 24 Hours Test 01/02/17 05:45 White Blood Count 3.11 K/uL Red Blood Count 3.70 M/uL Hemoglobin 11.7 g/dL Hematocrit 34.8 % Mean Corpuscular Volume 94.1 fL Mean Corpuscular Hemoglobin 31.6 pg Mean Corpuscular Hemoglobin Concent 33.6 g/dl Platelet Count 95 K/uL Mean Platelet Volume 11.8 fL Neutrophils (%) (Auto) 27.6 % Lymphocytes (%) (Auto) 47.3 % Monocytes (%) (Auto) 20.6 % Eosinophils (%) (Auto) 1.6 % Basophils (%) (Auto) 2.6 % Neutrophils # (Auto) 0.86 K/uL Lymphocytes # (Auto) 1.47 K/uL Monocytes # (Auto) 0.64 K/uL Eosinophils # (Auto) 0.05 K/uL Basophils # (Auto) 0.08 K/uL RDW Standard Deviation 45.4 fL RDW Coefficient of Variation 13.1 % Immature Granulocyte % (Auto) 0.3 % Immature Granulocyte # (Auto) 0.01 K/uL Echinocytes 1+ Sodium Level 138 mmol/L Potassium Level 3.9 mmol/L Chloride Level 105 mmol/L Carbon Dioxide Level 26 mmol/L Anion Gap 7.0 mmol/L Blood Urea Nitrogen 19 mg/dl Creatinine 0.84 mg/dl Est Creatinine Clear Calc Drug Dose 76.4 ml/min Estimated GFR () 100.0 Estimated GFR (Non- 86.3 BUN/Creatinine Ratio 22.9 Random Glucose 95 mg/dl Calcium Level 8.2 mg/dl Magnesium Level 2.0 mg/dl Assessment and Plan (1) Microhematuria (2) Enlarged prostate Stable voiding complaints. Now on Flomax. OK to resume as an outpatient. Overtime, may help his nocturia. Otherwise, OK to discharge from Urology point of view. Can f/u as outpatient to complete the work-up for microhematuria with cystoscopy and continue to eval and treat lower urinary tract symptoms.
[2017-01-02] MEDS ORDERED: CLC100 PO (14:33)
[2017-01-02] MEDS ORDERED: MRLP17 PO (14:33)
--- NOTE | 2017-01-02 14:43 | Discharge Instructions ---
Discharge Instructions Date of Service Jan 02, 2017. Admission Reason for Admission: Weakness Discharge Discharge Diagnosis / Problem: Fever,Weakness-suspected Lyme disease Discharge Goals Goal(s): Improve disease control, Diagnostic testing, Therapeutic intervention Activity Recommendations Activity Limitations: resume your previous activity Exercise/Sports Limitations: gradually increase as tolerated Shower/Bathe: no limitations . Instructions / Follow-Up Instructions / Follow-Up You were admitted due to fever and weakness. You had a negative Lyme disease blood test but it is suspected that you may have Lyme disease versus a viral illness. Please finish out a course of a total of 14 days of doxycycline for the suspected Lyme. Your blood counts were all mildly low and actually have been for a few years. This may be a sign of an underlying bone marrow disorder. A skeletal survey of your bones was negative for any signs of problems in the bones. You should follow up with a Garment Worker as an outpatient on a routine basis. You should have a CBC (blood test) done in about 1-2 weeks through your PCP to make sure your counts are all returning to your baseline. You were also noted to have microscopic blood in your urine which has been present for several years. You had a CT scan of your kidneys which showed some compression of your left renal vein. This may be causing the blood in your urine , but you should see the Urologist Dr. Carleen Gaytan in follow up to complete the workup for the blood in your urine. You are also recommended to see a Vascular Surgeon to see if anything further needs to be done for the renal vein compression or "Nutcracker Syndrome." You were found to have severe constipation on your xrays. You should take a stool softener twice daily and Miralax daily until you are having regular bowel movements at least twice daily. Your bones appear thin (osteopenia) on xrays, and your Vitamin D was very low. You should start taking a Vitamin D supplement daily which helps with muscle and bone strength. Please follow up with your PCP within 1 week. Our Nurse Navigator, Dinora Herrera, should be contacting you within the next 1-2 days to help schedule all of your appointments. If you haven't heard from her, please call us at the hospital and ask for her. Current Hospital Diet Patient's current hospital diet: AHA Diet (Heart Healthy) Discharge Diet Recommended Diet: Regular Diet Procedures Procedures Performed: Skeletal survey Renal CT Chest xray Head CT Pending Studies Studies pending at discharge: yes List of pending studies: Urine porphobilinogen Laboratory Results Last 24 Hours Test 01/02/17 05:45 White Blood Count 3.11 K/uL Red Blood Count 3.70 M/uL Hemoglobin 11.7 g/dL Hematocrit 34.8 % Mean Corpuscular Volume 94.1 fL Mean Corpuscular Hemoglobin 31.6 pg Mean Corpuscular Hemoglobin Concent 33.6 g/dl Platelet Count 95 K/uL Mean Platelet Volume 11.8 fL Neutrophils (%) (Auto) 27.6 % Lymphocytes (%) (Auto) 47.3 % Monocytes (%) (Auto) 20.6 % Eosinophils (%) (Auto) 1.6 % Basophils (%) (Auto) 2.6 % Neutrophils # (Auto) 0.86 K/uL Lymphocytes # (Auto) 1.47 K/uL Monocytes # (Auto) 0.64 K/uL Eosinophils # (Auto) 0.05 K/uL Basophils # (Auto) 0.08 K/uL RDW Standard Deviation 45.4 fL RDW Coefficient of Variation 13.1 % Immature Granulocyte % (Auto) 0.3 % Immature Granulocyte # (Auto) 0.01 K/uL Echinocytes 1+ Sodium Level 138 mmol/L Potassium Level 3.9 mmol/L Chloride Level 105 mmol/L Carbon Dioxide Level 26 mmol/L Anion Gap 7.0 mmol/L Blood Urea Nitrogen 19 mg/dl Creatinine 0.84 mg/dl Est Creatinine Clear Calc Drug Dose 76.4 ml/min Estimated GFR () 100.0 Estimated GFR (Non- 86.3 BUN/Creatinine Ratio 22.9 Random Glucose 95 mg/dl Calcium Level 8.2 mg/dl Magnesium Level 2.0 mg/dl Medical Emergencies . Who to Call and When: Medical Emergencies: If at any time you feel your situation is an emergency, please call 911 immediately. . Non-Emergent Contact Non-Emergency issues call your: Primary Care Provider, Urologist Call Non-Emergent contact if: you have a fever, your pain is not controlled, your pain is worsening, your pain is unusual for you, your pain is concerning you, you have any medication questions . . "Provider Documentation" section prepared by Yazmin Olea. . VTE Core Measure Inpt VTE Proph given/why not?: Enoxaparin (Lovenox)SQ
[2017-01-02 14:52] VITALS: BP 111/73; PULSE 67; TEMP 36.6; O2SAT 96
[2017-01-03 21:33] LABS: PORPHOBILINOGEN RAN UR 0.7 mg/g creat (<2.0)
--- NOTE | 2017-01-16 16:11 | Discharge Summary ---
Discharge Summary Date of Service Jan 02, 2017. Discharge Summary Admission Date: Dec 31, 2016 at 14:25 Discharge Date: Jan 02, 2017 Discharge Disposition: Home with services Principal Diagnosis: Weakness,fever-suspected Lyme Disease Problems/Secondary Diagnoses: Acute worsening of chronic Pancytopenia Constipation Rosacea Osteopenia Vitamin D deficiency Microscopic hematuria Lower urinary tract symptoms, nocturia Nutcracker Syndrome Renal cysts Moderate-severe constipation Trace pleural effusions bilateral Suspected emphysema on imaging Procedures: Head CT-negative Chest xray-cardiomegaly Skeletal survey-negative for lytic lesions Renal CT: 1. The kidneys demonstrate mild cortical atrophy and are without hydronephrosis. No renal calculi are identified. 2. There is no enhancing renal cortical mass. No evidence of urothelial lesion is seen within the renal pelvis bilaterally or involving the proximal ureters. 3. The proximal left renal vein is markedly dilated and focally narrows as it passes posterior to the superior mesenteric artery. The appearance strongly suggests Nutcracker Syndrome. Follow-up with urology is recommended. 4. There are large bilateral renal cysts. 5. Cardiomegaly and suspect emphysema. 6. Trace pleural effusions. 7. Moderate to severe constipation. 8. Additional findings as above. Consultations: Urology Medication Reconciliation New Medications: Cholecalciferol (Vitamin D3) 1,000 Inter.unit Tab 2000 INTER.UNIT PO QAM for 30 Days, TAB OTC Docusate Sodium (Docusate Sodium) 100 Mg Cap 100 MG PO BID for 30 Days, CAP Doxycycline Hyclate (Doxycycline Hyclate) 100 Mg Cap 100 MG PO BID for 12 Days, #24 CAP Polyethylene (Miralax) 17 Gm Pow 17 GM PO QAM for 30 Days Tamsulosin HCl (Tamsulosin HCl) 0.4 Mg Cap 0.4 MG PO DAILY for 30 Days, #30 CAP Referrals At Discharge Follow up Referrals: Physician Referral - Within 1 Week with Chapito Mosquera M.D. Surgery Referral - Within a Month with Gonzales Christian M.D. Urologist Referral - Within 2 Weeks with Carleen Gaytan MD Discharge Exam Review of Systems: Constitutional: No fever Eyes: No problem reported ENT: No problem reported Respiratory: No shortness of breath Cardiovascular: No chest pain Abdomen: + constipation, No pain, No GI bleeding Musculoskeletal: + joint pain (but improving) Genitourinary - Male: + urinary frequency Neurologic: No problem reported Psychiatric: No problem reported Endocrine: No problem reported Hematologic / Lymphatic: No problem reported Integumentary: No problem reported Physical Exam: General Appearance: no apparent distress, + thin Eyes: normal inspection, sclerae normal ENT: hearing grossly normal Neck: trachea midline Respiratory/Chest: lungs clear, normal breath sounds, no respiratory distress, no accessory muscle use Cardiovascular: regular rate, rhythm, no edema, no gallop, no murmur, normal peripheral pulses Abdomen / GI: normal bowel sounds, non tender, soft, no organomegaly, no pulsatile mass Extremities: normal inspection, no calf tenderness, normal capillary refill , no pedal edema Neurologic/Psychiatric: alert, normal mood/affect, oriented x 3 Skin: normal color, warm/dry, + rash (rosacea of face) Hospital Course 76 yo male with PMH of microscopic hematuria and pancytopenia, here with progressive weakness more acute in the last 2-3 days, fever, recent tick bite, and lower back pain. Generalized weakness/ambulatory dysfunction, fever, arthralgias,myalgias, recent tick bite. With acute on chronic pancytopenia. Presumed Lyme disease or Anaplasmosis. Lyme titer negative but could be false negative, too soon to test. Improved significantly from admission with treatment with doxycycline - Head CT- unremarkable for acute process - CXR- unremarkable for acute cardiopulmonary processes, cardiomegaly noted - CPK WNL - Urine porphyrinogen pending but not likely to be positive - b12/folate and TSH WNL Skeletal Survey negative - Treated w/ IVF hydration -started doxycycline 100mg po bid and started to have improvement--> finish out 14 day course of doxy for presumed Lyme vs Anaplasmosis -PT/OT evaluations Vitamin D deficiency at 16.5: - Vitamin D supplement 2000 IU daily - Follow-up w/ PCP LUTS (nocturia q1-2 hours every night for years), microscopic hematuria, Nutcracker Syndrome, Renal cysts- persistent microscopic hematuria on UAs since 2010. 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 PSA 3.0, Ur cx negative Urology saw and recommended f/u with Vascular Surgery for evaluation -may need outpatient cystoscopy in future, f/u with Urology -continue Flomax daily Chronic pancytopenia since 2010 at least -mild, a bit worse here now likely secondary to acute illness. -plts down to 85k, no evidence of bleeding. B12, folate, TSH all normal here -follow CBC here and as outpatient until returns to baseline. -Recommend outpatient Hematology referral, may need bone marrow aspiration/bx Rosacea-on face, stable -doxy may help this DVT prophylaxis: Lovenox 40 mg daily Code Status: LEVEL I, FULL Dispo: From home, lives w/ - PT/OT- recommending acute rehab vs home PT Discharge to home with home PT Total Time Spent: Greater than 30 minutes This includes examination of the patient, discharge planning, medication reconciliation, and communication with other providers. Discharge Instructions Please refer to the electronic Patient Visit Report (Discharge Instructions) for additional information. Follow-Up PCP within 1 week Urology within 1 month Vascular Surgery within 1 month Hematology within 1 month Reapt CBC within 1-2 weeks Additional Copies To Chapito Mosquera M.D.; Carleen Gaytan MD; Gonzales Christian M.D.
[2017-02-08] MEDS ORDERED: DOCU100C31 PO (10:05)
[2017-02-08] MEDS ORDERED: POLY335019 PO (10:05)
[2017-02-08] MEDS ORDERED: CHOL2000 PO (10:05)
== END 2017-01-02 15:25 | disposition home health service (06) | DRG 868 ==
LOC: C.EDB 18:34 → C.MS4W 12-31 00:12 → ENRESERV 12-31 00:29 → OBSVTOIN 12-31 14:25
PROVIDERS: ADMIT Student in an Organized Health Care Education/Training Program; ATTEND Family Medicine
DX: A69.20 Lyme disease, unspecified (principal); I87.1 Compression of vein; E87.1 Hypo-osmolality and hyponatremia; D61.818 Other pancytopenia; R31.29 Other microscopic hematuria; W57.XXXA Bitten or stung by nonvenomous insect and other nonvenomous arthropods, initial encounter; N40.1 Benign prostatic hyperplasia with lower urinary tract symptoms; L71.9 Rosacea, unspecified; R26.2 Difficulty in walking, not elsewhere classified; I25.10 Atherosclerotic heart disease of native coronary artery without angina pectoris; E55.9 Vitamin D deficiency, unspecified; Z91.81 History of falling

== ENCOUNTER 2017-02-11 08:24 | Day surgery (SDC) | payer OTHER ==
[2017-02-08 09:35] VITALS: BMI 19.0
[~2017-02-11] VITALS: Ht 188 cm; Wt 68.2 kg
[2017-02-11] VITALS (8 sets, daily range): BP systolic 128–169; BP diastolic 73–92; PULSE 61–79; TEMP 36.3–37; O2SAT 96–100; Ht 188 cm; Wt 68.2 kg
[~2017-02-11 08:24] MED LIST changes: +CEFAZOLIN 1000MG/55 ML D5W IV SCH; +CHOL2000 PO; -CODCAP4; +DOCU100C31 PO; +LACTATED RINGER'S 1000ML 1,000 ML IV SCH; -MECL1TAB40 PO; +POLY335019 PO; +SODIUM CHLORIDE 0.9% 1000ML 1,000 ML IV SCH
--- NOTE | 2017-02-11 09:10 | History and Physical ---
History & Physical Date of Service Feb 11, 2017. History & Physical CC: Nutcracker syndrome left renal vein HPI: Mr. Villegas states that he had gone to the emergency department with generalized weakness, fevers, chills, and body aches and that upon evaluation there, he was found to have microscopic hematuria. The patient underwent evaluation with CT scan, which indicated a "nutcracker syndrome," involving his left renal vein. He denies any complaints of flank pain or gross hematuria, changes in urination, any changes in his renal function as far as he is aware, or other complaints. Upon review of his CT scan, he does have an 85 to 90% narrowing of his left renal vein due to compression. Urinalysis which had been performed at the hospital demonstrated +2 proteinuria and +2 alcohol blood as well as red blood cells. The patient has no other complaints at this time including headaches, fevers, chills, dizziness, chest pain, shortness of breath , abdominal pain, nausea, vomiting, diarrhea, constipation, dysuria, hematuria, rest pain, claudication, nonhealing wounds or ulcers, or other complaints. ALLERGIES: His allergies include DOXYCYCLINE, dust, grass, pollen, and SULFA DRUGS. HOME MEDICATIONS: Reconciled and include the following: Colace when needed, MiraLax when needed, and vitamin D3. PAST MEDICAL HISTORY: Essentially negative. SURGICAL HISTORY: Positive for a cataract extraction and removal of skin lesions on his face. FAMILY HISTORY: Positive for congestive heart failure, hypertension, sarcoidosis, and skin cancer in his mother. Stroke in his sister. Heart disease in his father. SOCIAL HISTORY: Negative for tobacco, alcohol, or drug use. REVIEW OF SYSTEMS: Negative for fatigue, fevers, sweats, weight loss, exercise intolerance, abnormal moles or rashes, vision changes, photophobia, ear pain, sinus problems, or sore throat, cough, shortness of breath, hemoptysis, wheezing , chest pain, palpitations, edema, syncope, abdominal pain, nausea, vomiting, diarrhea, constipation, dysuria, hematuria, muscle weakness, headaches, dizziness, numbness, or seizures. PHYSICAL EXAM: His vital signs are as follows: Blood pressure 112/64 in the right arm, 106/58 in the left, heart rate of 70, oxygen 99% on room air. The patient is 185.42 cm tall and weighs 67.5 kg. Constitutional: In general, patient is a healthy-appearing for age, well-nourished, well-developed, elderly male, in no acute distress. He ambulates slowly, but without assistance and is active, alert, and oriented x4, with normal and remote memory. Head is normocephalic and atraumatic. Eyes are EOMI. ENT exam demonstrates no hearing loss, rhinorrhea, or pharyngeal erythema. Neck: Supple. Nontender with a midline trachea without masses or crepitus. Lungs: Demonstrates no dyspnea. They are clear bilaterally. Cardiovascular: Nondisplaced, apical impulse with a regular rate and rhythm without murmurs, rubs, or gallops. Peripheral pulses are full and equal in lower extremities otherwise noted, specifically there are normal carotid, brachial, radial, and femoral pulses. Bilateral lower extremity distal pulses are +1 DP, +2 PT with brisk capillary refill. No sign of distal ischemia. Abdomen: Soft, nontender, with normoactive bowel sounds in all 4 quadrants. No guarding or rebound. There is no flank or CVA tenderness. Musculoskeletal: Demonstrates normal tone and strength for age. Bilateral upper extremities demonstrate no cyanosis, edema, clubbing, varicosities, or ulcers. Lower extremities demonstrate trace to 1+ edema at the ankles and a few minor nontender varicosities on the left. Neurologically, the patient has grossly intact cranial nerves and grossly intact sensation. 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 Plan: Patient is admitted for stenting of his left renal vein. I have discussed the risks options and benefits of the procedure with the patient. The patient understands the risks options and benefits and agrees to the procedure.
[2017-02-11 09:32] LABS: BUN/CREATININE RATIO 19.8 (10-20); CREATININE 0.97 mg/dl (0.60-1.40)
--- NOTE | 2017-02-11 09:44 | Procedure Note ---
Pre-Mod Sedation Assessment General Date of Moderate Sedation: Feb 11, 2017. Vital Signs: Vital Signs Past 12 Hours Date Time Temp Pulse Resp B/P (MAP) Pulse Ox O2 Delivery O2 Flow Rate FiO2 02/11/17 09:07 36.3 61 18 169/92 (117) 99 Room Air Pre-Sedation Airway Assessment Oral Cavity: WNL Hx of Sleep Apnea: No Smoking Status: Never Smoker Mallampati Classification: Class I ASA Classification: Class II Notes The planned sedation has been discussed with the patient and consent obtained. I have identified the patient, determined the appropriateness of sedation and have assessed the patient immediately prior to the procedure. All medicine(s) and interventions are by my order.
[2017-02-11] MEDS ORDERED: FENTANYL CITRATE INJ 50 MCG/1 ML 2 ML VIAL ONE (10:31)
[2017-02-11] MEDS ORDERED: MIDAZOLAM HCL 1 MG/ML 2ML VIAL ONE (10:32)
[2017-02-11] MEDS ORDERED: HEPARIN SOD (PORCINE) 1000 UNIT/ML 10 ML VIAL ONE (10:34)
[2017-02-11] MEDS ORDERED: LIDOCAINE HCL 1% 20 ML VIAL INJ ONE (11:10)
[2017-02-11] MEDS ORDERED: HEPARIN SOD (PORCINE) 1000 UNIT/ML 10 ML VIAL IV ONE (11:43)
[2017-02-11] MEDS ORDERED: IODIXANOL (VISIPAQUE) 270 MG/ML 150ML XX ONE (13:21)
--- NOTE | 2017-02-11 13:25 | [facility] Post Operative Brief Note ---
Immediate Operative Summary Operative Date Feb 11, 2017. Pre-Operative Diagnosis nutcracker syndrome Post-Operative Diagnosis same Procedure(s) Performed Left Renal Venogram, Stenting Of Left Renal Vein Surgeon Dr. Christian Mental Health Coordinator Surgeon(s) none Estimated Blood Loss 10 ml Findings good flow in renal vein post stent Specimens none Anesthesia Local Complication(s) None Disposition
[2017-02-11] MEDS ORDERED: SODIUM CHLORIDE 0.9% 1000ML 1,000 ML IV SCH (13:28)
--- NOTE | 2017-02-11 13:32 | Discharge Instructions ---
Discharge Instructions Date of Service Feb 11, 2017. Visit Reason for Visit: Left Renal Vein Compression Syndrome Discharge Discharge Diagnosis / Problem: Nutcracker syndrome Discharge Goals Goal(s): Therapeutic intervention Activity Recommendations Activity Limitations: per Instructions/Follow-up section Anesthesia . Post Anesthesia Instructions: If you have had General Anesthesia or IV Sedation: * Do not drive today. * Resume driving when surgeon permits. * Do not make important decisions or sign legal documents today. * Call surgeon for: 1. Temperature elevations greater than 101 degrees F. 2. Uncontrollable pain. 3. Excessive bleeding. 4. Persistent nausea and vomiting. 5. Medication intolerance (nausea, vomiting or rash). * For nausea and vomiting use only clear liquids such as: tea, soda, bouillon until nausea subsides, then gradually increase diet as tolerated. * If you have any concerns or questions, call your surgeon's office. If physician is unavailable and it is an emergency, call 911 or go to the nearest emergency room. . Instructions / Follow-Up Instructions / Follow-Up Call [phone] to schedule a follow up appointment if one not already scheduled. SPECIAL CARE INSTRUCTIONS: Medications: * Continue to take your medications as directed. If you have been given a prescription for Plavix, please fill it immediately and take as directed. Incision Care: * Your puncture site may have some bruising and minor swelling for about one week. * You will have a small dressing covering your puncture site. You may remove the dressing after 24 hours and shower. You may let the warm soapy water run over it, but be sure to dry the puncture site well and keep it dry. * DO NOT IMMERSE THE INCISION IN A TUB/POOL/etc. UNTIL HEALED. * Puncture sites should be kept covered with a band-aid until it begins to heal. Restrictions: * Depending on whether you leg or arm was punctured to access the arteries, you will be required to lay flat, hold your arm still, or both, for about 4 hours after the procedure to prevent bleeding. * Limit your activity for the first 48 hours. You may walk and go up and down steps. Avoid excessive bending or movement at the puncture site. Possible Complications: * Excessive Swelling - after blood flow is improved you may notice increased swelling in the lower legs. This is a normal response. This usually depends on the amount of blockages in the leg, how long they have been there prior to your procedure and how much blood flow was restored. Elevating your legs will help to improve this. Please notify our office ([phone] ) if the swelling does not go away after lying in bed overnight. * Infection/Drainage/Bleeding - Drainage or bleeding from the puncture site should be minimal. If you have excessive bleeding or drainage, call our office ([phone]) right away. * Pain - You may experience some mild pain or soreness at your puncture site. If your pain does not improve, please contact our office ([phone]). Call your doctor and seek emergent treatment if you develop: * Temperature above 101 degrees * Any fever or chills * Any redness or purulent drainage from the puncture site * Any new dusky/blue colored toes or feet with coolness or sharp or aching pain. SKIN IRRITATION: * You may experience some redness and/or swelling in the area where radiation was administered. If any skin irritation occurs, please contact your family physician. FOLLOW UP VISIT: Keep any scheduled doctor appointments. Diet Recommendations Recommended Home Diet: resume previous diet Procedures Procedures Performed: Left Renal Venogram, Stenting Of Left Renal Vein Pending Studies Studies pending at discharge: no Medical Emergencies . Who to Call and When: Medical Emergencies: If at any time you feel your situation is an emergency, please call 911 immediately. . Non-Emergent Contact Non-Emergency issues call your: Surgeon . . "Provider Documentation" section prepared by Gonzales Christian. .
--- NOTE | 2017-02-11 14:52 | DIAGNOSTIC IMAGING REPORT ---
DATE OF PROCEDURE: 02/11/2017 PREOPERATIVE DIAGNOSIS: Nutcracker syndrome. POSTOPERATIVE DIAGNOSIS: Same. PROCEDURE: Left renal venogram, stenting of left renal vein. SURGEON: Dr. Christian. ANESTHETIC: Local. PROCEDURE INDICATIONS: The patient is a 76-year-old gentleman with proteinuria and hematuria, was found to have severe compression of his left renal vein from his SMA. Stenting was recommended. He understood the risks, options and benefits and agreed to have this procedure. PROCEDURE IN DETAIL: The patient was taken to the angio suite and placed in supine position. After the right groin was prepped and draped in a sterile manner, local anesthetic was administered. A percutaneous puncture was then made of the common femoral vein in the right groin. An 0.035 wire was inserted. Using numerous catheters and wires, the left renal vein was cannulated. We were finally able to get an 8-[place] destination sheath into the renal vein. The stent was then deployed and we used an 8 x 4 [place] stent and expanded it to 11 mm. The stent did slide in proximally slightly. The stent catheter balloon was removed. We did lose wire and had to recannulate the renal vein and stent. Again, numerous wires and catheters were used. We were finally able to get back into the lumen of the stent. We then placed an 11 x 4 [place] stent proximally, overlapping the old stent and up to the vena cava. The completion film showed it to be flush with the vena cava wall. We then expanded the proximal portion at the caval level with a 14 x 2 balloon. At that point, final venogram showed good flow through the renal vein. The stent was widely patent. There was no extension of the stent into the vena cava. Sheath was then pulled, pressure was applied. Adequate hemostasis was obtained. MTDD
== END 2017-02-11 17:35 | disposition home or self-care (01) ==
LOC: C.ACU 08:24
PROVIDERS: ATTEND Surgery Vascular Surgery
DX: I87.1 Compression of vein (principal); N29 Other disorders of kidney and ureter in diseases classified elsewhere; Z98.49 Cataract extraction status, unspecified eye; Z82.49 Family history of ischemic heart disease and other diseases of the circulatory system; Z82.3 Family history of stroke; R31.29 Other microscopic hematuria; R80.9 Proteinuria, unspecified; K21.9 Gastro-esophageal reflux disease without esophagitis; M19.90 Unspecified osteoarthritis, unspecified site; Z85.820 Personal history of malignant melanoma of skin; Z86.19 Personal history of other infectious and parasitic diseases

== ENCOUNTER → 2017-05-02 | Outpatient (CLI) | payer OTHER ==
[~2017-05-02] MED LIST changes: -CEFAZOLIN 1000MG/55 ML D5W IV SCH; -LACTATED RINGER'S 1000ML 1,000 ML IV SCH; -SODIUM CHLORIDE 0.9% 1000ML 1,000 ML IV SCH
[2017-05-02 09:45] LABS: HEMATOCRIT 38.9 % (42-52); MEAN CELL VOLUME 94.4 fL (80-100); MEAN CORPUSCULAR HEMOGLOBIN 32.8 pg (25-34); MEAN CORPUSCULAR HGB CONC 34.7 g/dl (32-36); MEAN PLATELET VOLUME 12.5 fL (7.4-10.4); PLATELET COUNT 139 K/uL (130-400); RED BLOOD COUNT 4.12 M/uL (4.7-6.1); WHITE BLOOD COUNT 6.59 K/uL (4.8-10.8)
[2017-05-02 09:55] LABS: CHOLESTEROL/HDL RATIO 2.5
== END | disposition home or self-care (01) ==
LOC: C.LAB1850 07:45
PROVIDERS: ATTEND Family Medicine
DX: E78.2 Mixed hyperlipidemia (principal); D64.9 Anemia, unspecified

== ENCOUNTER 2017-10-20 12:56 | Emergency (ER) | payer OTHER ==
[~2017-10-20] VITALS: Ht 188 cm; Wt 68.0 kg
[2017-10-20 13:06] VITALS: TEMP 36.5; Ht 188 cm; Wt 68.0 kg
--- NOTE | 2017-10-20 13:50 | EMERGENCY ROOM VISIT NOTE ---
History Report prepared by Samy: Usama Orourke Under the Supervision of: Dr. Michael Abreu M.D. First contact with patient: 13:39 Chief Complaint: DIZZY Stated Complaint: WEAK,VOMITING,BALANCE PROBLEMS,VISION PROBLEMS History of Present Illness The patient is a 76 year old male who presents to the Emergency Room with complaints of persistent dizziness over the past few days. He notes that he has had a history of vertigo over the past 4 to 5 years, and has been prescribed Meclizine, which he decides not to take because he states that it does not help much. The patient says that it has been hard to keep his balance when walking over the past few days, but denies either the room spinning or feeling like he is going to pass out. He describes his dizziness as if he were "spinning around in circles". He adds that his nose is clogged up and has a lot of sinus pressure. The patient notes that he has not fallen over the past few days. He denies any current pain, including any headaches, shortness of breath, cough, or fevers. The patient has a history of a renal stent placement, per the patient 's brother. The patient reports no stroke history. The patient was noted to have had to be brought into the room on a wheelchair. Source of History: patient, family (brother) Onset: Past few days Position: other (global) Symptom Intensity: spinning around in circles Quality: other (dizziness) Timing: other (persistent) Associated Symptoms: No LOC, No fevers, No headache, No cough, No SOB Note: Associated symptoms: Nose clogged up. Review of Systems See HPI for pertinent positives and negatives. A total of ten systems were reviewed and were otherwise negative. Past Medical & Surgical Medical Problems: (1) Ambulatory dysfunction (2) Enlarged prostate (3) Heart disease (4) Hyponatremia (5) Microhematuria (6) Nutcracker phenomenon of renal vein (7) Pneumonia (8) Tick bite (9) Weakness Surgical Problems: (1) Hx of cataract surgery Family History Diabetes mellitus FH: cancer FH: heart disease FH: lung disease Hypertension Social History Smoking Status: Never Smoker Alcohol Use: none Drug Use: none Marital Status: Housing Status: lives with family Occupation Status: retired Current/Historical Medications Scheduled Amoxicillin (Amoxil), 500 MG PO BID Cholecalciferol (Vitamin D3), 1 CAP PO Q2D Scheduled PRN Meclizine Hcl (Meclizine Hcl), 25 MG PO TID PRN for Dizziness Allergies Coded Allergies: Doxycycline (Verified Allergy, Intermediate, HOARSENESS,THROAT GOT TIGHT, 10/20/17) Dust (Verified Allergy, Intermediate, CONGESTION, ITCHY EYES, SNEEZING, 06/27) Grass (Verified Allergy, Intermediate, CONGESTION, ITCHY EYES, SNEEZING, ) POLLEN (Verified Allergy, Intermediate, CONGESTION, ITCHY EYES, SNEEZING, 10/20/17) Sulfa Antibiotics (Verified Allergy, Intermediate, RASH, 10/20/17) Physical Exam Vital Signs Date Time Temp Pulse Resp B/P (MAP) Pulse Ox O2 Delivery O2 Flow Rate FiO2 10/20/17 18:09 73 23 133/81 97 Room Air 10/20/17 17:30 73 15 142/82 95 Room Air 10/20/17 16:59 74 10/20/17 15:30 78 18 156/87 97 10/20/17 13:37 63 161/88 72 147/85 72 139/73 10/20/17 13:22 65 10/20/17 13:06 36.5 62 16 144/83 98 Room Air Physical Exam Physical Exam GENERAL: He is oriented to person, place, and time. He appears well-developed and well-nourished. He does not appear distressed. ____ HENT: Exam performed. Head: Pain on palpation of maxillary sinuses bilaterally. Right Ear: Right ear with cerumen occluded. No mastoid tenderness. Left Ear: External ear normal. No mastoid tenderness. TM farley and pearly. No erythema, bulging, or effusion. Mouth/Throat: The oropharynx is clear and moist. No trismus in the jaw. No dental abscesses or uvula swelling. No oropharyngeal exudate or tonsillar abscesses. ____ EYES: Conjunctivae and EOM are normal. Pupils are equal, round, and reactive to light. Right eye exhibits no discharge. Left eye exhibits no discharge. No scleral icterus. ____ NECK: Normal range of motion. Neck supple. No JVD present. No spinous process tenderness present. No carotid bruit present. No rigidity. No tracheal deviation and normal range of motion present. No Brudzinski's sign and no Kernig 's sign noted. ____ CV: Normal rate, regular rhythm, normal heart sounds and intact distal pulses. There is no peripheral edema. Palpable radial pulses bue. ____ PULM/CHEST: Effort normal and breath sounds normal. No respiratory distress. No stridor. He has no wheezes. He has no rales. Chest Wall: He exhibits no tenderness. ____ ABD: The abdomen is soft. Bowel sounds are normal. He has no distension. No mass is present. There is no tenderness. There is no rebound, no guarding, no Benz's sign and no tenderness at McBurney's point. Rovsig negative MUSC/SKEL: Normal range of motion. There is no peripheral edema, tenderness or deformity. LYMPH: No cervical adenopathy. ____ NEURO: He is alert and oriented to person, place, and time. He has normal strength. No cranial nerve deficit or sensory deficit. Patient states he is to dizzy to walk. GCS eye subscore is 4. GCS verbal subscore is 5. GCS motor subscore is 6. Cerebellar tests wnl. ____ SKIN: Skin is warm and dry. He is not diaphoretic. ____ PSYCH: He has a normal mood and affect. He behavior is normal. Judgment and thought content normal. ____ Medical Decision & Procedures ER Provider Diagnostic Interpretation: Radiology results as stated below per my review and radiologist interpretation: CT SCAN OF THE BRAIN WITHOUT IV CONTRAST CLINICAL HISTORY: Dizziness. Weakness. COMPARISON STUDY: CT of the brain dated 12/30/2016. TECHNIQUE: Unenhanced axial CT scan of the brain is performed from the vertex to the skull base. A dose lowering technique was utilized adhering to the principles of ALARA. CT DOSE: 1145.41 mGy.cm FINDINGS: Brain parenchyma: There are age-related involutional changes noting mild subcortical and periventricular microangiopathic change. There is no hemorrhage, mass effect, or evidence of acute territorial ischemia by CT criteria. Farley-white matter is preserved. No extra-axial fluid collection is seen. Ventricles, sulci, cisterns: Prominent secondary to involutional change. Intracranial vasculature: There is atherosclerotic calcification of the cavernous carotid and vertebral arteries. Calvarium: Unremarkable. Sinuses and mastoids: Mild mucosal thickening is seen within the ethmoid and left frontal sinuses. The remaining visualized paranasal sinuses are clear. The mastoid air cells are well pneumatized. Orbits: The bony orbits are grossly intact. There are bilateral ocular lens implants. IMPRESSION: There is no hemorrhage, mass effect, or evidence of acute territorial ischemia by CT criteria. Electronically signed by: Mark Arroyo M.D. 10/20/2017 2:53 PM Dictated Date/Time: 10/20/2017 2:51 PM TWO VIEW CHEST CLINICAL HISTORY: Dizziness. Weakness. FINDINGS: PA and lateral chest radiographs are compared to study dated 12/30/2016. The heart is mildly enlarged and there is atherosclerotic calcification of the thoracic aorta. There is questionable dilatation of the thoracic aorta. The pulmonary vasculature is noncongested. Emphysema and chronic interstitial thickening are similar to previous. No airspace consolidation or pleural effusion is identified. There is no pneumothorax. The skeletal structures are osteopenic. The bony thorax appears intact. IMPRESSION: 1. Cardiomegaly and emphysema with no acute cardiopulmonary abnormality. 2. There is questionable dilatation of the ascending thoracic aorta. This may be projectional; however, a CT angiogram of the chest is recommended for further assessment. Electronically signed by: Mark Arroyo M.D. 10/20/2017 3:19 PM Dictated Date/Time: 10/20/2017 3:[address] SCAN OF THE ABDOMEN AND PELVIS WITHOUT IV CONTRAST CLINICAL HISTORY: Weakness. Dizziness. COMPARISON STUDY: Abdominal CT dated 01/01/2017. TECHNIQUE: CT scan of the abdomen and pelvis is performed from the lung bases to the proximal femora. Images are reviewed in the axial, sagittal, and coronal planes. IV contrast was not administered for this examination as per the referring clinician. Note that the examination was performed in suboptimal fashion without oral and IV contrast. The examination is also degraded by streak artifact from the arms which could not be elevated above the abdomen and motion artifact. A dose lowering technique was utilized adhering to the principles of ALARA. FINDINGS: Lung bases: The heart is mildly enlarged and without pericardial effusion. The lung bases are clear noting dependent atelectasis. Liver: The unenhanced liver is normal in size, contour, and attenuation. There is no intrahepatic biliary ductal dilatation. Gallbladder: Unremarkable. Spleen: Normal in size and attenuation. Pancreas: The unenhanced pancreas is atrophic and grossly unremarkable. Adrenal glands: Unremarkable. Kidneys: The unenhanced kidneys demonstrate cortical atrophy and are without hydronephrosis. There are no renal calculi identified. Bilateral cysts measure up to 4.4 cm. The largest cyst in the left kidney is decreased in size from previous. A stent is noted in the left renal vein. Abdominal vasculature: The abdominal aorta is normal in course and caliber noting moderate to advanced atherosclerotic calcification. Bowel: There is moderate to severe constipation. No bowel obstruction is seen. The appendix is not identified. Peritoneum: There is no intraperitoneal free air or abdominal ascites. Lymphadenopathy: None. Pelvic viscera: The prostate gland is markedly enlarged and heterogeneous, measuring 5.7 cm in transverse diameter. There is median lobe hypertrophy. The bladder wall is thickened and trabeculated indicating chronic outlet obstruction. A 3.3 x 2.0 cm water attenuation collection in the right groin likely represents a small seroma. Skeletal structures: The skeletal structures are osteopenic. Mild lumbosacral spondylosis is observed. No lytic or blastic lesions are seen. IMPRESSION: 1. Suboptimal examination without oral and IV contrast. The examination is also significantly compromised by streak and motion artifact. 2. There are no acute infectious or inflammatory findings in the abdomen or pelvis. 3. Moderate to severe constipation. No bowel obstruction is seen. 4. A a left renal vein stent is new from previous. 5. Prostatomegaly with evidence of chronic bladder outlet obstruction. 6. Additional findings as above. Electronically signed by: Mark Arroyo M.D. 10/20/2017 2:59 PM Dictated Date/Time: 10/20/2017 2:53 PM Laboratory Results 10/20/17 13:30 Red Blood Count 3.85, Mean Corpuscular Volume 94.3, Mean Corpuscular Hemoglobin 33.0, Mean Corpuscular Hemoglobin Concent 35.0, Mean Platelet Volume 11.5, Neutrophils (%) (Auto) 71.0, Lymphocytes (%) (Auto) 23.3, Monocytes (%) (Auto) 5.4, Eosinophils (%) (Auto) 0.0, Basophils (%) (Auto) 0.3, Neutrophils # (Auto) 5.69, Lymphocytes # (Auto) 1.86, Monocytes # (Auto) 0.43, Eosinophils # (Auto) 0.00, Basophils # (Auto) 0.02 10/20/17 13:30 Test 10/20/17 13:30 10/20/17 14:31 10/20/17 14:32 10/20/17 15:15 White Blood Count 8.00 K/uL (4.8-10.8) Red Blood Count 3.85 M/uL (4.7-6.1) Hemoglobin 12.7 g/dL (14.0-18.0) Hematocrit 36.3 % (42-52) Mean Corpuscular Volume 94.3 fL (80-100) Mean Corpuscular Hemoglobin 33.0 pg (25-34) Mean Corpuscular Hemoglobin Concent 35.0 g/dl (32-36) Platelet Count 187 K/uL (130-400) Mean Platelet Volume 11.5 fL (7.4-10.4) Neutrophils (%) (Auto) 71.0 % Lymphocytes (%) (Auto) 23.3 % Monocytes (%) (Auto) 5.4 % Eosinophils (%) (Auto) 0.0 % Basophils (%) (Auto) 0.3 % Neutrophils # (Auto) 5.69 K/uL (1.4-6.5) Lymphocytes # (Auto) 1.86 K/uL (1.2-3.4) Monocytes # (Auto) 0.43 K/uL (0.11-0.59) Eosinophils # (Auto) 0.00 K/uL (0-0.5) Basophils # (Auto) 0.02 K/uL (0-0.2) RDW Standard Deviation 43.9 fL (36.4-46.3) RDW Coefficient of Variation 12.7 % (11.5-14.5) Immature Granulocyte % (Auto) 0.0 % Immature Granulocyte # (Auto) 0.00 K/uL (0.00-0.02) Prothrombin Time 12.1 SECONDS (9.0-12.0) Prothromb Time International Ratio 1.2 (0.9-1.1) Activated Partial Thromboplast Time 27.1 SECONDS (21.0-31.0) Partial Thromboplastin Ratio 1.0 Anion Gap 4.0 mmol/L (3-11) Est Creatinine Clear Calc Drug Dose 76.0 ml/min Estimated GFR () 101.0 Estimated GFR (Non- 87.1 BUN/Creatinine Ratio 22.2 (10-20) Calcium Level 8.8 mg/dl (8.5-10.1) Magnesium Level 2.3 mg/dl (1.8-2.4) Total Bilirubin 0.6 mg/dl (0.2-1) Direct Bilirubin 0.2 mg/dl (0-0.2) Aspartate Amino Transf (AST/SGOT) 21 U/L (15-37) Alanine Aminotransferase (ALT/SGPT) 21 U/L (12-78) Alkaline Phosphatase 97 U/L (45-117) Total Creatine Kinase 86 U/L (39-308) Troponin I < 0.015 ng/ml (0-0.045) Pro-B-Type Natriuretic Peptide 200 pg/ml (0-900) Total Protein 7.4 gm/dl (6.4-8.2) Albumin 3.8 gm/dl (3.4-5.0) Lipase 358 U/L (73-393) Lyme Disease IgG Antibody NEG (NEG) Lactic Acid Level 0.8 mmol/L (0.4-2.0) Venous Blood pH 7.41 (7.36-7.41) Venous Blood Partial Pressure CO2 46 mmHg (38.0-50.0) Venous Blood Partial Pressure O2 34 mmHg Venous Blood HCO3 29 mmol/L Venous Blood Oxygen Saturation 63.0 % Venous Blood Base Excess 3.5 mEq/L Ammonia 10.6 umol/L (11-32) Ethyl Alcohol mg/dL < 3.0 mg/dl (0-3) Influenza Type A Antigen Neg for Influ A (NEG) Influenza Type B Antigen Neg for Influ B (NEG) Laboratory results reviewed by me Medications Administered Medications (Trade) Dose Ordered Sig/Syeda Route Start Time Stop Time Status Last Admin Dose Admin Meclizine HCl (Antivert Tab) 25 mg NOW STAT PO 10/20/17 14:12 10/20/17 14:13 DC 10/20/17 14:56 25 MG ECG Per My Interpretation Indication: other (dizzy) Rate (beats per minute): 59 Rhythm: sinus rhythm Findings: other (MO interval 230, QRS 152, QTC 463, bifascicular block present) Change: no significant change (from December 30 2016) Change: Repeat ECG at 1358: Sinus rhythm at 60 bpm. MO interval 228, QRS 144, QTC 472, bifascicular block present, no significant change from prior EKG's. ED Course 1340: The patient was evaluated in room C2B. A complete history and physical exam was performed. 1353: EMR was reviewed - the patient was seen in February 2017, and presented with similar symptoms, including generalized weakness and body aches. 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 1412: Antivert Tab 25 mg PO. 1805: The patient's vital signs are stable. I reevaluated the patient and he is ambulating without difficulty. He states that he feels better after the cerumen disimpaction. The patient workup was essentially negative including negative labs and imaging, with the exception of equivocal Lyme disease IGM antibody. The western blot is pending. Given the patient's equivocal Lyme antibody screen and pain on palpation of the sinuses, we will treat empirically with Amoxicillin. The patient is allergic to Doxycycline. DISCHARGE - Plan of care discussed with patient and questions answered. The patient was given both verbal and printed discharge instructions. The patient verbalized understanding and ability to comply. The patient is to seek outpatient follow up as noted in the discharge instructions. The patient verbalized understanding and ability to comply. The patient is discharged in stable condition. The patient was instructed to return for worsening symptoms. Medical Decision The patient's vital signs are stable. I reevaluated the patient and he is ambulating without difficulty. He states that he feels better after the cerumen disimpaction. The patient workup was essentially negative including negative labs and imaging, with the exception of equivocal Lyme disease IGM antibody. The western blot is pending. Given the patient's equivocal Lyme antibody screen and pain on palpation of the sinuses, we will treat empirically with Amoxicillin. The patient is allergic to Doxycycline. DISCHARGE - Plan of care discussed with patient and questions answered. The patient was given both verbal and printed discharge instructions. The patient verbalized understanding and ability to comply. The patient is to seek outpatient follow up as noted in the discharge instructions. The patient verbalized understanding and ability to comply. The patient is discharged in stable condition. The patient was instructed to return for worsening symptoms. Medication Reconcilliation Current Medication List: was personally reviewed by me Blood Pressure Screening Patient's blood pressure: Elevated blood pressure Blood pressure disposition: Referred to PCP Impression Primary Impression: Sinusitis Additional Impressions: Vertigo Cerumen impaction Scribe Attestation The scribe's documentation has been prepared under my direction and personally reviewed by me in its entirety. I confirm that the note above accurately reflects all work, treatment, procedures, and medical decision making performed by me. The chart was completed utilizing [employer] Speech voice recognition software. Grammatical errors, random word insertions, pronoun errors, and incomplete sentences are an occasional consequence of this system due to software limitations, ambient noise, and hardware issues. Any formal questions or concerns about the content, text, or information contained within the body of this dictation should be directly addressed to the physician for clarification. Departure Information Dispostion Home / Self-Care Prescriptions Meclizine Hcl (MECLIZINE HCL) 25 Mg Tab 25 MG PO TID Y for Dizziness, #21 TAB Prov: Michael Abreu M.D. 10/20/17 Amoxicillin (AMOXIL) 500 Mg Cap 500 MG PO BID for 10 Days, #20 CAP Prov: Michael Abreu M.D. 10/20/17 Referrals Chapito Mosquera M.D. (PCP) Patient Instructions ED BPV Vertigo, ED Sinusitis Abx Tx, My [facility] Problem Qualifiers Primary Impression: Sinusitis Sinusitis location: maxillary Chronicity: acute Recurrence: not specified as recurrent Qualified Codes: J01.00 - Acute maxillary sinusitis, unspecified Additional Impressions: Cerumen impaction Laterality: right Qualified Codes: H61.21 - Impacted cerumen, right ear
[2017-10-20 14:07] LABS: BASO % 0.3 %; BASO ABS # 0.02 K/uL (0-0.2); HEMATOCRIT 36.3 % (42-52); HEMOGLOBIN 12.7 g/dL (14.0-18.0); LYMPH % 23.3 %; LYMPH ABS # 1.86 K/uL (1.2-3.4); MEAN CELL VOLUME 94.3 fL (80-100); MEAN PLATELET VOLUME 11.5 fL (7.4-10.4); MONO % 5.4 %; MONO ABS # 0.43 K/uL (0.11-0.59); NEUT ABS # 5.69 K/uL (1.4-6.5); PLATELET COUNT 187 K/uL (130-400); RED CELL DISTRIBUTION WIDTH CV 12.7 % (11.5-14.5); RED CELL DISTRIBUTION WIDTH SD 43.9 fL (36.4-46.3)
[2017-10-20] MEDS ORDERED: MECLIZINE HCL 25 MG TAB PO STA (14:12)
[2017-10-20 14:16] LABS: ALBUMIN 3.8 gm/dl (3.4-5.0); ALT/SGPT 21 U/L (12-78); BLOOD UREA NITROGEN 18 mg/dl (7-18); CALCIUM 8.8 mg/dl (8.5-10.1); CARBON DIOXIDE 27 mmol/L (21-32); CREATININE 0.82 mg/dl (0.60-1.40); GLUCOSE 132 mg/dl (70-99); INR 1.2 (0.9-1.1); LIPASE 358 U/L (73-393); POTASSIUM 3.8 mmol/L (3.5-5.1); PTT PATIENT 27.1 SECONDS (21.0-31.0); SODIUM 134 mmol/L (136-145)
[2017-10-20 14:19] LABS: ALKALINE PHOSPHATASE 97 U/L (45-117); AST/SGOT 21 U/L (15-37); TOTAL PROTEIN 7.4 gm/dl (6.4-8.2)
--- NOTE | 2017-10-20 14:54 | DIAGNOSTIC IMAGING REPORT ---
CT SCAN OF THE BRAIN WITHOUT IV CONTRAST CLINICAL HISTORY: Dizziness. Weakness. COMPARISON STUDY: CT of the brain dated 12/30/2016. TECHNIQUE: Unenhanced axial CT scan of the brain is performed from the vertex to the skull base. A dose lowering technique was utilized adhering to the principles of ALARA. CT DOSE: 1145.41 mGy.cm FINDINGS: Brain parenchyma: There are age-related involutional changes noting mild subcortical and periventricular microangiopathic change. There is no hemorrhage, mass effect, or evidence of acute territorial ischemia by CT criteria. Farley-white matter is preserved. No extra-axial fluid collection is seen. Ventricles, sulci, cisterns: Prominent secondary to involutional change. Intracranial vasculature: There is atherosclerotic calcification of the cavernous carotid and vertebral arteries. Calvarium: Unremarkable. Sinuses and mastoids: Mild mucosal thickening is seen within the ethmoid and left frontal sinuses. The remaining visualized paranasal sinuses are clear. The mastoid air cells are well pneumatized. Orbits: The bony orbits are grossly intact. There are bilateral ocular lens implants. IMPRESSION: There is no hemorrhage, mass effect, or evidence of acute territorial ischemia by CT criteria. Electronically signed by: Mark Arroyo M.D. 10/20/2017 2:53 PM Dictated Date/Time: 10/20/2017 2:51 PM
--- NOTE | 2017-10-20 15:01 | DIAGNOSTIC IMAGING REPORT ---
CT SCAN OF THE ABDOMEN AND PELVIS WITHOUT IV CONTRAST CLINICAL HISTORY: Weakness. Dizziness. COMPARISON STUDY: Abdominal CT dated 01/01/2017. TECHNIQUE: CT scan of the abdomen and pelvis is performed from the lung bases to the proximal femora. Images are reviewed in the axial, sagittal, and coronal planes. IV contrast was not administered for this examination as per the referring clinician. Note that the examination was performed in suboptimal fashion without oral and IV contrast. The examination is also degraded by streak artifact from the arms which could not be elevated above the abdomen and motion artifact. A dose lowering technique was utilized adhering to the principles of ALARA. FINDINGS: Lung bases: The heart is mildly enlarged and without pericardial effusion. The lung bases are clear noting dependent atelectasis. Liver: The unenhanced liver is normal in size, contour, and attenuation. There is no intrahepatic biliary ductal dilatation. Gallbladder: Unremarkable. Spleen: Normal in size and attenuation. Pancreas: The unenhanced pancreas is atrophic and grossly unremarkable. Adrenal glands: Unremarkable. Kidneys: The unenhanced kidneys demonstrate cortical atrophy and are without hydronephrosis. There are no renal calculi identified. Bilateral cysts measure up to 4.4 cm. The largest cyst in the left kidney is decreased in size from previous. A stent is noted in the left renal vein. Abdominal vasculature: The abdominal aorta is normal in course and caliber noting moderate to advanced atherosclerotic calcification. Bowel: There is moderate to severe constipation. No bowel obstruction is seen. The appendix is not identified. Peritoneum: There is no intraperitoneal free air or abdominal ascites. Lymphadenopathy: None. Pelvic viscera: The prostate gland is markedly enlarged and heterogeneous, measuring 5.7 cm in transverse diameter. There is median lobe hypertrophy. The bladder wall is thickened and trabeculated indicating chronic outlet obstruction. A 3.3 x 2.0 cm water attenuation collection in the right groin likely represents a small seroma. Skeletal structures: The skeletal structures are osteopenic. Mild lumbosacral spondylosis is observed. No lytic or blastic lesions are seen. IMPRESSION: 1. Suboptimal examination without oral and IV contrast. The examination is also significantly compromised by streak and motion artifact. 2. There are no acute infectious or inflammatory findings in the abdomen or pelvis. 3. Moderate to severe constipation. No bowel obstruction is seen. 4. A a left renal vein stent is new from previous. 5. Prostatomegaly with evidence of chronic bladder outlet obstruction. 6. Additional findings as above. Electronically signed by: Mark Arroyo M.D. 10/20/2017 2:59 PM Dictated Date/Time: 10/20/2017 2:53 PM
--- NOTE | 2017-10-20 15:20 | DIAGNOSTIC IMAGING REPORT ---
TWO VIEW CHEST CLINICAL HISTORY: Dizziness. Weakness. FINDINGS: PA and lateral chest radiographs are compared to study dated 12/30/2016. The heart is mildly enlarged and there is atherosclerotic calcification of the thoracic aorta. There is questionable dilatation of the thoracic aorta. The pulmonary vasculature is noncongested. Emphysema and chronic interstitial thickening are similar to previous. No airspace consolidation or pleural effusion is identified. There is no pneumothorax. The skeletal structures are osteopenic. The bony thorax appears intact. IMPRESSION: 1. Cardiomegaly and emphysema with no acute cardiopulmonary abnormality. 2. There is questionable dilatation of the ascending thoracic aorta. This may be projectional; however, a CT angiogram of the chest is recommended for further assessment. Electronically signed by: Mark Arroyo M.D. 10/20/2017 3:19 PM Dictated Date/Time: 10/20/2017 3:14 PM
[2017-10-20 15:41] LABS: INFLUENZA B ANTIGEN Neg for Influ B (NEG)
[2017-10-20] MEDS ORDERED: OPTIRAY 320 IV PRN (16:15)
--- NOTE | 2017-10-20 17:00 | DIAGNOSTIC IMAGING REPORT ---
CHEST CTA for AORTIC DISSECTION CT DOSE: 640.46 mGycm HISTORY: Weakness. Dizziness. Possible thoracic aortic dilatation. TECHNIQUE: Multiaxial CT images of the chest were performed both before and after the intravenous administration of contrast to evaluate the aorta. Maximal intensity projection images were also obtained. A dose lowering technique was utilized adhering to the principles of ALARA. COMPARISON STUDY: Chest 10/20/2017. Abdomen and pelvis CT 10/20/2017. FINDINGS: Mild calcified plaque within the aortic arch. The ascending thoracic aorta is normal in caliber measuring up to 3.8 cm. No evidence for an aortic dissection. The heart is normal in size. No pleural or pericardial effusions. The main pulmonary arteries appear patent. No mediastinal or hilar lymphadenopathy. No fractures within the visualized osseous structures. No pneumothorax. The central airways are patent. Mild biapical pleural-parenchymal scarring. No focal lung consolidations to suggest pneumonia. IMPRESSION: Normal caliber thoracic aorta with no evidence for dissection. Electronically signed by: Guevara Hansen M.D. 10/20/2017 4:58 PM Dictated Date/Time: 10/20/2017 4:51 PM
[2017-10-20] MEDS ORDERED: AMOX500C3 PO (18:01)
[2017-10-20] MEDS ORDERED: MECL1TAB42 PO (18:01)
[2017-10-20 18:09] VITALS: BP 133/81; PULSE 73; O2SAT 97
== END 2017-10-20 18:20 | disposition home or self-care (01) ==
LOC: C.EDB 12:58 → C.EDC 18:20
DX: H61.21 Impacted cerumen, right ear (principal); J01.00 Acute maxillary sinusitis, unspecified; R74.9 Abnormal serum enzyme level, unspecified; I51.9 Heart disease, unspecified; Z87.448 Personal history of other diseases of urinary system; Z88.1 Allergy status to other antibiotic agents; Z91.048 Other nonmedicinal substance allergy status; Z88.2 Allergy status to sulfonamides

== ENCOUNTER 2022-07-01 11:10 | Inpatient (IN) ==
[2022-07-01] MEDS ORDERED: SODIUM CHLORIDE 0.9% 1000ML 500 ML IV ONE (11:22)
[2022-07-01] MEDS ORDERED: ACETAMINOPHEN 1,000 MG/100 ML VIAL IV STA (11:22)
--- NOTE | 2022-07-01 11:29 | Emergency Department Note ---
Impression & Plan Closed pelvic fracture, Right rib fracture, Fall, Anemia ED Provider Note NAME: AKILAH CRUZ AGE: 81 SEX: M : 1940 ARRIVES VIA: Ambulance INFORMANT: [Patient][ems, nursing] ED PROVIDER(S): [Mark Santacruz MD] CHIEF COMPLAINT: Fall, hip and rib pain HISTORY OF PRESENT ILLNESS: The patient is a 81-year-old male with Parkinson's. Yesterday, he tripped on the way to the toilet and fell. No loss of consciousness. He did not strike his head. He has had right hip and right flank/rib pain since the fall. He has not been able to bear weight because of the pain. When he is still, he feels okay. There has been no fever or cough, he denies abdominal pain. No knee pain. He denies neck pain or headache. As the patient could not walk yesterday or even today, he was brought by ambulance for evaluation. His family is on the way but not yet at bedside. The patient does live at home with his . REVIEW OF SYSTEMS: See HPI for pertinent positives and negatives. A total of ten systems were reviewed and were otherwise negative. PMHx/PSHx: See Below SOCIAL HISTORY: See Below. PHYSICAL EXAM: GENERAL: Patient is in no acute distress. HEENT: No acute trauma, normocephalic atraumatic, mucous membranes moist, no nasal congestion, no scleral icterus. NECK: No stridor, no adenopathy, nontender cervical spine, trachea midline. LUNGS: Clear to auscultation bilaterally, no wheeze, no rhonchi, breath sounds equal. Chest: Tender to the right lower lateral chest wall, no contusion seen. HEART: Without murmurs gallops or rubs, regular rate and rhythm. ABDOMEN: Soft, nontender, bowel sounds positive, no peritonitis. EXTREMITIES: No cyanosis or edema. The patient does not have any right lower extremity deformity. Movement of his right hip does cause pain. Palpation of the knees, ankles, feet does not cause discomfort. Movement of the upper extremities does not cause pain or discomfort. NEUROLOGIC: Oriented x 3, no acute motor or sensory deficits, no focal weakness. SKIN: No rash, no jaundice, no diaphoresis. Back: Nontender thoracic or lumbar spine. DIFFERENTIAL DIAGNOSIS: Rib fracture, pneumothorax, pulmonary contusion, hemothorax, renal contusion, liver injury, musculoskeletal discomfort, hip fracture, hip strain/contusion, among others. EMERGENCY DEPARTMENT COURSE/PROCEDURES: MEDICAL DECISION MAKING: There is no leukocytosis. A very mild anemia was seen, this anemia has been documented before. Platelet count was slightly low at 127. No renal failure or significant electrolyte abnormality. No concerning liver enzyme elevation. Urinalysis did not show infection. COVID test returned negative. Chest film did not show pneumonia or CHF. No pneumothorax. Chest CT shows subacute right- sided rib fractures. Abdominal and pelvis CT does show a right pelvic fracture and right inferior pubic ramus fracture. No intra-abdominal solid organ injury seen. Right hip CT does show the earlier mentioned pelvic fracture, no hip fracture. Right hip x-ray does show the inferior pubic ramus fracture, no hip fracture or hip dislocation. The patient was given a 500 cc saline bolus. He received IV Tylenol for pain. The patient presents after falling yesterday. He cannot bear any weight, he cannot walk. He has rib fractures and a right sided pelvic fracture. Orthopedics has been consulted. He will require a hospital stay and likely inpatient rehab care. The patient is aware of his findings, his family is aware. I did speak with case management, the on-call hospitalist was consulted. Past Med/Surg History Medical History Cardiac murmur Echo 01/2019 = Mild MR and aortic sclerosis without stenosis. 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 Christian 02/11/17 Hx of cataract surgery bilateral Hx of inguinal hernia surgery (07/12/19) Right Open Inguinal Hernia Repair with Mesh Dr. 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 Beliefs That Will Affect Care: None marital status: Current Living Situation: Spouse current occupational status: retired current occupation: Retired Teacher Feels Safe at Home: Yes Safety Concerns: Feels Safe At This Time Assistive Devices: Glasses Allergies Allergies Allergy/AdvReac Type Severity Reaction Status Date / Time doxycycline Allergy Intermediate HOARSENESS,THROAT Verified 07/01/22 13:36 GOT TIGHT grass pollen-perennial rye, Allergy Intermediate CONGESTION, Verified 07/01/22 13:36 standar ITCHY EYES, SNEEZING pollen extracts Allergy Intermediate CONGESTION, Verified 07/01/22 13:36 ITCHY EYES, SNEEZING Sulfa (Sulfonamide Allergy Intermediate Unknown Verified 07/01/22 13:36 Antibiotics) Dust Allergy Intermediate CONGESTION, Uncoded 07/01/22 13:36 ITCHY EYES, SNEEZING Home Meds Home Medications Medication Instructions Recorded Confirmed cholecalciferol (vitamin D3) 25 1,000 unit PO QAM 05/19/19 07/01/22 mcg (1,000 unit) capsule (Vitamin D3) ascorbic acid (vitamin C) 500 mg 500 mg PO [id number] 07/01/22 07/01/22 tablet (Vitamin C) carbidopa 25 mg-levodopa 100 mg See Rx Instructions .Route .COMPLEX 07/01/22 07/01/22 tablet zinc acetate 25 mg (zinc) capsule 25 mg PO [id number] 07/01/22 07/01/22 Results & Data (ED) Vital Signs Vital Signs - 24 hr 07/01/22 11:23 07/01/22 11:31 07/01/22 12:00 Temperature 36.6 C Temperature Source Oral Pulse Rate 88 63 62 Pulse Rate from SpO2 Sensor 62 61 Pulse Rhythm Regular Respiratory Rate 16 17 18 Respiratory Effort / Characteristics Non-Labored Spontaneous Respiratory Depth Normal Blood Pressure 157/93 H Blood Pressure Mean 114 Pulse Oximetry 95 95 94 Oxygen Delivery Method Room Air Sepsis Recent Fever Within 48 Hours No Sepsis New/Unexplained Change in Mental Status No Sepsis Action Taken by Nursing No Action Required 07/01/22 13:00 07/01/22 13:30 07/01/22 14:00 Temperature Temperature Source Pulse Rate 68 74 74 Pulse Rate from SpO2 Sensor 62 Pulse Rhythm Respiratory Rate 15 13 16 Respiratory Effort / Characteristics Respiratory Depth Blood Pressure Blood Pressure Mean Pulse Oximetry 93 94 Oxygen Delivery Method Sepsis Recent Fever Within 48 Hours Sepsis New/Unexplained Change in Mental Status Sepsis Action Taken by Residential Medications Current Medication List: was personally reviewed by me Laboratory Data Attestation: I reviewed the patient's lab results. Result diagrams: 07/01/22 11:26 07/01/22 11:26 Lab Results 07/01/22 07/01/22 07/01/22 Range/Units 11:26 11: 11:43 WBC 7.26 (4.8-10.8) K/ul RBC 3.84 L (4.63-6.08) M/uL Hgb 12.9 L (14.0-18.0) g/dl Hct 37.4 L (40.1-51.0) % MCV 97.4 (80.0-100.0) fL MCH 33.6 (25.0-34.0) pg MCHC 34.5 (32.0-36.0) g/dL RDW Std Deviation 45.5 (36.4-46.3) fL RDW Coeff of Olena 12.8 (11.5-14.5) % Plt Count 127 L (130-400) K/uL MPV 12.6 H (9.4-12.4) fL Sodium 135 L (136-145) mmol/L Potassium 4.0 (3.5-5.1) mmol/L Chloride 102 (98-107) mmol/L Carbon Dioxide 27 (21-32) mmol/L Anion Gap 6 (3-11) BUN 27 H (6-23) mg/dl Creatinine 0.76 (0.6-1.4) mg/dl Est Cr Clr Drug Dosing 75.8 ml/min Est GFR ( Amer) 100.6 ml/min Est GFR (Non-Af Amer) 86.8 ml/min BUN/Creatinine Ratio 35.5 H (10-20) Glucose 104 H (70-99(Fasting)) mg/dl Calcium 8.8 (8.5-10.1) mg/dl Total Bilirubin 0.8 (0.2-1.0) mg/dl AST 18 (13-39) U/L ALT 7 (7-52) U/L Alkaline Phosphatase 81 (34-104) U/L Total Protein 6.9 (6.0-8.3) gm/dl Albumin 3.9 (3.4-5.0) gm/dl Globulin 3.0 (2.5-4.0) gm/dl Albumin/Globulin Ratio 1.3 (0.9-2) SARS-CoV-2, RNA, NAAT NEGATIVE (NEGATIVE) Administered Medications Bisacodyl (Bisacodyl 5 Mg Tabec) 5 mg PO DAILY TIFFANIE Stop: 07/31/22 15:19 Last Admin: 07/01/22 16:28 Dose: 5 mg Documented By: JOSE Polyethylene Glycol (Polyethylene (Miralax) 17 Gm Pack) 17 gm PO DAILY TIFFANIE Stop: 07/31/22 15:19 Last Admin: 07/01/22 16:29 Dose: 17 gm Documented By: JOSE Tramadol HCl (Tramadol Hcl 50 Mg Tablet) 50 mg PO Q4H PRN PRN Reason: Pain, moderate, rating 5,6,7,8 Stop: 07/31/22 15:22 Last Admin: 07/01/22 16:39 Dose: 50 mg Documented By: JOSE Discontinued Medications Hydralazine HCl (Hydralazine Hcl 20 Mg/Ml Vial) 5 mg IV NOW STA Stop: 07/01/22 16:02 Last Admin: 07/01/22 16:28 Dose: 5 mg Documented By: JOSE Acetaminophen (Ofirmev) 1,000 mg in 100 mls @ 400 mls/hr IV NOW STA Stop: 07/01/22 11:36 Last Infusion: 07/01/22 11:51 Dose: 0 mls/hr Documented By: Admin: 07/01/22 11:36 Dose: 400 mls/hr Documented By: SUSANNE Sodium Chloride (Nss 1000ml) 500 mls @ 999 mls/hr IV .Q31M ONE Stop: 07/01/22 11:52 Last Infusion: 07/01/22 12:08 Dose: 0 mls/hr Documented By: Admin: 07/01/22 11:37 Dose: 999 mls/hr Documented By: SUSANNE Ioversol (Optiray 350 100ml) 85 ml IV ONCE ONE Stop: 07/01/22 12:53 Last Admin: 07/01/22 12:44 Dose: 85 ml Documented By: [facility] Imaging Data Radiologist's Impression: Chest CT 07/01/22 11:22 CT chest diagnostic w con CLINICAL HISTORY: fall, right rib pain TECHNIQUE: Multidetector row helical CT of the chest was performed with intravenous contrast. Coronal and sagittal reformations were obtained. Automated dose lowering techniques and/or adjustment according to patient size were utilized for this exam. CT DOSE: 605.68 mGy.cm Comparison: Comparison is made to CT chest 10/20/2017 FINDINGS: Lungs and pleura: Atelectasis versus scarring is seen in the dependent portions of the lungs. Heart and pericardium: Cardiomegaly is seen with biatrial enlargement. Vessels: Mild atherosclerotic changes in the aorta and coronary arteries. The pulmonary trunk measures 34 mm in diameter. Within the limits of a nondedicated exam, no pulmonary embolus is seen. Mediastinum and giovany: Unremarkable. Chest wall and lower neck: Unremarkable. Abdomen: For findings below the diaphragm, please refer to CT of the abdomen dated the same. Bones: Degenerative changes of the thoracic spine. Subacute healing rib fractures are seen. No evidence of acute rib fracture. IMPRESSION: 1. No evidence of acute fracture is seen. Multiple subacute right rib fractures are seen. 2. Cardiomegaly and pulmonary hypertension. Atelectasis is noted. ACT 112: Negative or not required by law. Electronically signed by: Zach Clemons M.D. 07/01/2022 1:13 PM Chest X-Ray 07/01/22 11:22 XR chest 1V portable HISTORY: fall, right rib pain COMPARISON: Chest 10/20/2017. FINDINGS: No pneumothorax. No pleural effusions. There is mild emphysema. Small linear scarlike density within the right midlung zone. Otherwise, the lungs are clear. The heart is top normal in size. A vascular stent is seen within the upper abdomen. No acute rib fractures are identified. IMPRESSION: No acute process. ACT 112: Negative or not required by law. Electronically signed by: Guevara Hansen M.D. 07/01/2022 12:51 PM Hip/Pelvis X-Ray 07/01/22 11:22 XR hip RT 2V w pelvis CLINICAL HISTORY: Right hip pain following fall. COMPARISON: CT of the abdomen and pelvis June 24, 2019. Skeletal survey January 01, 2017. FINDINGS: Sacroiliac joints and symphysis pubis are intact. No acute proximal femoral fracture is present. There is a mildly displaced fracture of the right inferior pubic ramus, likely acute. Possible fracture of the medial right pubic bone is noted. Moderate to large stool within the visualized colon and rectum is present. IMPRESSION: 1. Mildly displaced fracture of the right inferior pubic ramus, likely acute. Possible nondisplaced fracture of the medial right pubic bone. 2. No acute proximal femoral fracture. ACT 112: Negative or not required by law. Electronically signed by: Mane Donovan M.D. 07/01/2022 12:39 PM Abdomen/Pelvis CT 07/01/22 11:29 CT OF THE ABDOMEN AND PELVIS WITH CONTRAST CLINICAL HISTORY: Right flank pain following fall. COMPARISON STUDY: CT of the abdomen and pelvis June 24, 2019. TECHNIQUE: Following IV administration of 85 mL of Optiray, axial images of the abdomen and pelvis were obtained from the lung bases to the proximal femurs. Images were reviewed in the axial, sagittal, and coronal planes. IV contrast was administered without complication. Automated exposure control was utilized for the study. A dose lowering technique was utilized adhering to the principles of ALARA. FINDINGS: Multiple old bilateral lower rib fractures are noted. No hemoperiton eum or pneumoperitoneum is present. There is no evidence for hepatic injury to the liver, spleen, adrenal glands, kidneys or pancreas. Water attenuation renal lesions favor cysts. A stent within the left renal vein is noted. This appears patent and unchanged in position. Moderate to large amount of stool within the colon and rectum is noted. Evaluation of the abdomen and pelvis is difficult given a positive intra-abdominal fat. There is no free fluid. The prostate is enlarged. A water attenuation focus within the right groin remains unchanged. No acute proximal femoral fracture is present. There is no acute lumbar spine fracture. There is an acute nondisplaced fracture of the right sacral ala. An acute comminuted mildly displaced fracture pf the right inferior pubic ramus is noted. There is an acute nondisplaced fracture of the medial right pubic bone. IMPRESSION: 1. Acute comminuted mildly displaced right inferior pubic ramus fracture. Acute nondisplaced fractures of the medial right pubic bone and right sacral ala. 2. No evidence for traumatic injury to the solid abdominal viscera. 3. Moderate to large amount of stool within the colon and rectum. ACT 112: Negative or not required by law. Electronically signed by: Mane Donovan M.D. 07/01/2022 1:[address] 07/01/22 12:34 CT hip RT w con HISTORY: Fall. right hip pain TECHNIQUE: Multiaxial CT images of the right hip were performed following the intravenous ministration of contrast and reformatted in the sagittal and coronal planes. COMPARISON STUDY: Right hip radiograph 07/01/2022. FINDINGS: No fracture or dislocation within the proximal right femur. Mildly displaced fracture within the right inferior pubic ramus. There is nondisplaced fracture within the medial pubic bones. This likely extends into the medial aspect of the right superior pubic ramus. No significant hip effusion. Vascular calcifications are noted. Mild osteoarthritis within the right hip. IMPRESSION: 1. Acute right pubic bone fractures. 2. No acute fracture or dislocation within the proximal right femur. ACT 112: Negative or not required by law. Electronically signed by: Guevara Hansen M.D. 07/01/2022 1:38 PM Discharge Plan Visit Data Chief Complaint: Hip Pain Stated Complaint: R HIP, RIB & ARM PAIN, FALL YESTERDAY ED Provider: Mark Santacruz Discharge Problem: Closed pelvic fracture, Right rib fracture, Fall, Anemia Patient Disposition: Admitted As Inpatient Condition: Good Discharge Instructions Interventions: ED Discharge Assessment Last Done: 07/01/22 14:50
[2022-07-01 11:52] LABS: Hematocrit (blood only) 37.4 % (40.1-51.0); Hemoglobin 12.9 g/dl (14.0-18.0); Mean Corpuscular Hemoglobin 33.6 pg (25.0-34.0); Mean Corpuscular Hgb Conc 34.5 g/dL (32.0-36.0); Mean Corpuscular Volume 97.4 fL (80.0-100.0); Mean Platelet Volume 12.6 fL (9.4-12.4); Platelet Count 127 K/uL (130-400); RDW Coefficient of Variation 12.8 % (11.5-14.5); RDW Standard Deviation 45.5 fL (36.4-46.3); Red Blood Count 3.84 M/uL (4.63-6.08); White Blood Count 7.26 K/ul (4.8-10.8)
[2022-07-01 12:09] LABS: Albumin Globulin Ratio 1.3 (0.9-2); Albumin Level 3.9 gm/dl (3.4-5.0); BUN Creatinine Ratio 35.5 (10-20); Bilirubin,Total 0.8 mg/dl (0.2-1.0); Calcium 8.8 mg/dl (8.5-10.1); Creatinine Clr Calc Pharmacy 75.8 ml/min; Est GFR (African American) 100.6 ml/min; Est GFR (Non-African American) 86.8 ml/min; Total Protein 6.9 gm/dl (6.0-8.3)
--- NOTE | 2022-07-01 12:42 | XRay Report ---
XR hip RT 2V w pelvis CLINICAL HISTORY: Right hip pain following fall. COMPARISON: CT of the abdomen and pelvis June 24, 2019. Skeletal survey January 01, 2017. FINDINGS: Sacroiliac joints and symphysis pubis are intact. No acute proximal femoral fracture is pr esent. There is a mildly displaced fracture of the right inferior pubic ramus, likely acute. Possible fracture of the medial right pubic bone is noted. Moderate to large stool within the visualized colo n and rectum is present. IMPRESSION: 1. Mildly displaced fracture of the right inferior pubic ramus, likely acute. Possible nondisplaced f racture of the medial right pubic bone. 2. No acute proximal femoral fracture. ACT 112: Negative or not required by law. Electronically signed by: Mane Donovan M.D. 07/01/2022 12:39 PM
[2022-07-01 12:46] LABS: Appearance Urine Clear (Clear); Bilirubin Urine Negative (Negative); Blood Urine Negative (Negative); Color Urine Yellow; Glucose Urine UA Negative (Negative); Ketones Urine Negative (Negative); Leukocyte Esterase Urine Negative (Negative); Nitrite Urine Negative (Negative); Protein Urine Negative (Negative); Urobilinogen Urine Negative (Negative); pH Urine 7.5 (4.5-7.5)
[2022-07-01] MEDS ORDERED: OPTIRAY 350 100ml IV ONE (12:52)
--- NOTE | 2022-07-01 12:52 | XRay Report ---
XR chest 1V portable HISTORY: fall, right rib pain COMPARISON: Chest 10/20/2017. FINDINGS: No pneumothorax. No pleural effusions. There is mild emphysema. Small linear scarlike densi ty within the right midlung zone. Otherwise, the lungs are clear. The heart is top normal in size. A vascular stent is seen within the upper abdomen. No acute rib fractures are identified. IMPRESSION: No acute process. ACT 112: Negative or not required by law. Electronically signed by: Guevara Hansen M.D. 07/01/2022 12:51 PM
--- NOTE | 2022-07-01 13:14 | CT Scan Report ---
CT OF THE ABDOMEN AND PELVIS WITH CONTRAST CLINICAL HISTORY: Right flank pain following fall. COMPARISON STUDY: CT of the abdomen and pelvis June 24, 2019. TECHNIQUE: Following IV administration of 85 mL of Optiray, axial images of the abdomen and pelvis we re obtained from the lung bases to the proximal femurs. Images were reviewed in the axial, sagittal, and coronal planes. IV contrast was administered without complication. Automated exposure control wa s utilized for the study. A dose lowering technique was utilized adhering to the principles of ALARA . FINDINGS: Multiple old bilateral lower rib fractures are noted. No hemoperitoneum or pneumoperitoneum is present. There is no evidence for hepatic injury to the liver, spleen, adrenal glands, kidneys or pancreas. Water attenuation renal lesions favor cysts. A stent within the left renal vein is noted. This appears patent and unchanged in position. Moderate to large amount of stool within the colon and rectum is noted. Evaluation of the abdomen and pelvis is difficult given a positive intra-abdominal fat. There is no free fluid. The prostate is enlarged. A water attenuation focus within the right josefina in remains unchanged. No acute proximal femoral fracture is present. There is no acute lumbar spine f racture. There is an acute nondisplaced fracture of the right sacral ala. An acute comminuted mildly displaced fracture pf the right inferior pubic ramus is noted. There is an acute nondisplaced fractur e of the medial right pubic bone. IMPRESSION: 1. Acute comminuted mildly displaced right inferior pubic ramus fracture. Acute nondisplaced fracture s of the medial right pubic bone and right sacral ala. 2. No evidence for traumatic injury to the solid abdominal viscera. 3. Moderate to large amount of stool within the colon and rectum. ACT 112: Negative or not required by law. Electronically signed by: Mane Donovan M.D. 07/01/2022 1:12 PM
--- NOTE | 2022-07-01 13:14 | CT Scan Report ---
CT chest diagnostic w con CLINICAL HISTORY: fall, right rib pain TECHNIQUE: Multidetector row helical CT of the chest was performed with intravenous contrast. Coronal and sagittal reformations were obtained. Automated dose lowering techniques and/or adjustment accord ing to patient size were utilized for this exam. CT DOSE: 605.68 mGy.cm Comparison: Comparison is made to CT chest 10/20/2017 FINDINGS: Lungs and pleura: Atelectasis versus scarring is seen in the dependent portions of the lungs. Heart and pericardium: Cardiomegaly is seen with biatrial enlargement. Vessels: Mild atherosclerotic changes in the aorta and coronary arteries. The pulmonary trunk measure s 34 mm in diameter. Within the limits of a nondedicated exam, no pulmonary embolus is seen. Mediastinum and giovany: Unremarkable. Chest wall and lower neck: Unremarkable. Abdomen: For findings below the diaphragm, please refer to CT of the abdomen dated the same. Bones: Degenerative changes of the thoracic spine. Subacute healing rib fractures are seen. No eviden ce of acute rib fracture. IMPRESSION: 1. No evidence of acute fracture is seen. Multiple subacute right rib fractures are seen. 2. Cardiomegaly and pulmonary hypertension. Atelectasis is noted. ACT 112: Negative or not required by law. Electronically signed by: Zach Clemons M.D. 07/01/2022 1:13 PM
--- NOTE | 2022-07-01 13:40 | CT Scan Report ---
CT hip RT w con HISTORY: Fall. right hip pain TECHNIQUE: Multiaxial CT images of the right hip were performed following the intravenous ministratio n of contrast and reformatted in the sagittal and coronal planes. COMPARISON STUDY: Right hip radiograph 07/01/2022. FINDINGS: No fracture or dislocation within the proximal right femur. Mildly displaced fracture withi n the right inferior pubic ramus. There is nondisplaced fracture within the medial pubic bones. This likely extends into the medial aspect of the right superior pubic ramus. No significant hip effusion. Vascular calcifications are noted. Mild osteoarthritis within the right hip. IMPRESSION: 1. Acute right pubic bone fractures. 2. No acute fracture or dislocation within the proximal right femur. ACT 112: Negative or not required by law. Electronically signed by: Guevara Hansen M.D. 07/01/2022 1:38 PM
--- NOTE | 2022-07-01 14:04 | History & Physical Report ---
Date of Service July 01, 2022 Assessment & Plan (1) Fracture of right inferior pubic ramus: (2) Pelvis fracture, right: (3) Parkinsons: (4) Ambulatory dysfunction: Plan: - Admit to med surg - Xrays today show R inferior pubic rami fracture, right medial pelvic fracture, sacral bella fracture. Also noted are multiple subacute right rib fractures on chest CT. - Hx of Parkinsons disease and follows with Dr. Batista - continue on sinemet - Fall precautions - hx of multiples falls likely secondary to Parkinson progression, BPH with frequent bathroom trips increasing likelihood of falls - PT/OT consults - pt would likely benefit from short term inpatient stay - Ortho consulted - likely nonoperable but would appreciate mobility and weight bearing recs - Continue pain control with [id number] Tylenol, tramadol prn, bowel regimen with constipation seen on imaging, patient was not using any other pain medicine at home. Consider iv meds for breakthrough pain but currently does not need - Given 1 L NSS in the ER, allow diet, no further fluids for now - BMI of 19, consider nutritional assessment while inpatient (5) Enlarged prostate: Plan: - Hx of such, has recently been prescribed proscar by Dr. Sepulveda with urology, however pt is not taking due to possible adverse reactions/side effects. He did take the medication for a few months but stopped in April. He denies worsen ing urinary symptoms - Consider mc cath placement if needed - UA appears clean on admission DVT ppx: - miriam gradys CODE: Full code Dispo: From home, likely to remain in the hospital x 1-2 days, CM to assist with dc planning and possible inpt rehab for PT/OT History of Present Illness Chief Complaint: Fall Primary Care Provider: Murray Vasquez DO This is a 81-year-old male with PMHx of Parkinson's disease lumbar degenerative disc disease, chronic low back pain, peripheral vascular disease, polyneuropathy, gait disturbance who sustained a fall yesterday. This occurred while he was attempting to pee in a bedside potty due to BPH, but accidentally caught his arm in the pot somehow, upturned it, and fell. He has not been able to walk since he fell yesterday secondary to pain. Pt notes he has not had a bowel movement since prior to the fall. Pt reports pain with any weight placement on the right leg, but while sitting still states it is fine, zero pain. Pt has not used pain medications at home. He is eating and drinking fine , denies any recent weight loss. He does normally walk at home prior to this event. He mentions sustaining a fall several week ago, but cannot recall having any specific pain at that time. His , is present at beside and supports the history. Xrays today show R inferior pubic rami fracture, right medial pelvic fracture, sacral bella fracture. Also noted are multiple subacute right rib fractures on chest CT. Allergies Allergy/AdvReac Type Severity Reaction Status Date / Time doxycycline Allergy Intermediate HOARSENESS,THROAT Verified 07/01/22 13:36 GOT TIGHT grass pollen-perennial rye, Allergy Intermediate CONGESTION, Verified 07/01/22 13:36 standar ITCHY EYES, SNEEZING pollen extracts Allergy Intermediate CONGESTION, Verified 07/01/22 13:36 ITCHY EYES, SNEEZING Sulfa (Sulfonamide Allergy Intermediate Unknown Verified 07/01/22 13:36 Antibiotics) Dust Allergy Intermediate CONGESTION, Uncoded 07/01/22 13:36 ITCHY EYES, SNEEZING Home Medications Medication Instructions Recorded Confirmed Type cholecalciferol (vitamin D3) 25 1,000 unit PO QAM 05/19/19 07/01/22 History mcg (1,000 unit) capsule (Vitamin D3) ascorbic acid (vitamin C) 500 mg 500 mg PO 4XWK 07/01/22 07/01/22 History tablet (Vitamin C) carbidopa 25 mg-levodopa 100 mg See Rx Instructions .Route .COMPLEX 07/01/22 07/01/22 History tablet zinc acetate 25 mg (zinc) capsule 25 mg PO 3XWK 07/01/22 07/01/22 History Past Med/Surg History Medical History Cardiac murmur Echo 01/2019 = Mild MR and aortic sclerosis without stenosis. 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 Christian 02/11/17 Hx of cataract surgery bilateral Hx of inguinal hernia surgery (07/12/19) Right Open Inguinal Hernia Repair with Mesh Dr. Amado 07-12-19 Status post Mohs surgery Family History (System 01/21/20 @ 15:16 by Katiuskajs Sepulveda) Mother Cancer Hypertension Father Heart disease Sister Stroke Other Family history non-contributory No family history of adverse response to anesthesia Social History Smoking Status: Never smoker Second Hand Exposure: No; Do You Dip or Chew Tobacco: No; Hx Alcohol Use: No Hx Substance Use: No Preferred Language: Tajik Communication Ability: Effective Breaker Hand Required: No Beliefs That Will Affect Care: None marital status: Current Living Situation: Spouse current occupational status: retired current occupation: Retired Teacher Feels Safe at Home: Yes Safety Concerns: Feels Safe At This Time Assistive Devices: Glasses Review of Systems Review of Systems: Constitutional: No fever, sweats or chills Eyes: No diplopia, no worsening or blurred vision ENT: normal hearing, no trouble swallowing Respiratory: No cough, sputum, dyspnea at rest or on exertion, no rib pain Cardiovascular: No chest pain, tightness or palpitations Abdomen: No pain, nausea, vomiting, diarrhea as per HPI, no bowel movement since prior to fall Musculoskeletal: Right pelvic pain with weightbearing, otherwise no joint pain, calf pain, swelling Neurologic: No weakness, numbness/tingling, + balance problems, fall sustained 3 weeks ago, + parkinsons disease Psychiatric: No anxiety or depression, Skin: No rash or itch Physical Exam Physical Exam: General: awake, alert, no apparent distress Head: Normocephalic, atraumatic ENT: PERRL, EOMI, no pharyngeal exudate, mucous membranes slightly dry Chest: Clear to auscultation, on room air, no adventitious breath sounds Cardiac: Regular rate and rhythm, no murmur, no JVD, normal peripheral pulses, good capillary refill Abdominal: NABS x 4 quadrants, soft, nondistended, nontender to palpation, no rebound or guarding Extremities: Normal inspection, no peripheral edema or erythema, calfs nontender to palpation Psych: Normal mood and affect Skin: seborrheic keratosis mostly over face, trunk and back, multiple areas of the body Neuro: AAO x 3, strength intact bilaterally and rated 5/5, + slower speaking, no gross motor deficits, speech is clear, no peripheral sensory deficits Results & Data Results & Data ([facility]) Vital Signs (Past 12 Hours) Vital Signs Temp Pulse Resp BP Pulse Ox O2 Del Method 07/01/22 12:00 62 18 94 07/01/22 11:31 63 17 95 07/01/22 11:23 36.6 C 88 16 157/93 H 95 Room Air Laboratory Results 07/01/22 07/01/22 07/01/22 Unknown 11:43 11:26 WBC RBC Hgb Hct MCV MCH MCHC RDW Std Deviation RDW Coeff of Olena Plt Count MPV Sodium 135 L Potassium 4.0 Chloride 102 Carbon Dioxide 27 Anion Gap 6 BUN 27 H Creatinine 0.76 Est Cr Clr Drug Dosing 75.8 Est GFR ( Amer) 100.6 Est GFR (Non-Af Amer) 86.8 BUN/Creatinine Ratio 35.5 H Glucose 104 H Calcium 8.8 Total Bilirubin 0.8 AST 18 ALT 7 Alkaline Phosphatase 81 Total Protein 6.9 Albumin 3.9 Globulin 3.0 Albumin/Globulin Ratio 1.3 Urine Color Yellow Urine Appearance Clear Urine pH 7.5 Ur Specific [place] 1.020 Urine Protein Negative Urine Glucose (UA) Negative Urine Ketones Negative Urine Blood Negative Urine Nitrite Negative Urine Bilirubin Negative Urine Urobilinogen Negative Ur Leukocyte Esterase Negative SARS-CoV-2, RNA, NAAT NEGATIVE 07/01/22 11:26 WBC 7.26 RBC 3.84 L Hgb 12.9 L Hct 37.4 L MCV 97.4 MCH 33.6 MCHC 34.5 RDW Std Deviation 45.5 RDW Coeff of [place]len[place] 12.8 Plt Count 127 L MPV 12.6 H Sodium Potassium Chloride Carbon Dioxide Anion Gap BUN Creatinine Est Cr Clr Drug Dosing Est GFR ( Amer) Est GFR (Non-Af Amer) BUN/Creatinine Ratio Glucose Calcium Total Bilirubin AST ALT Alkaline Phosphatase Total Protein Albumin Globulin Albumin/Globulin Ratio Urine Color Urine Appearance Urine pH Ur Specific [place] Urine Protein Urine Glucose (UA) Urine Ketones Urine Blood Urine Nitrite Urine Bilirubin Urine Urobilinogen Ur Leukocyte Esterase SARS-CoV-2, RNA, NAAT Diagnostic Findings Chest CT 07/01/22 11:22 CT chest diagnostic w con CLINICAL HISTORY: fall, right rib pain TECHNIQUE: Multidetector row helical CT of the chest was performed with intravenous contrast. Coronal and sagittal reformations were obtained. Automated dose lowering techniques and/or adjustment according to patient size were utilized for this exam. CT DOSE: 605.68 mGy.cm Comparison: Comparison is made to CT chest 10/20/2017 FINDINGS: Lungs and pleura: Atelectasis versus scarring is seen in the dependent portions of the lungs. Heart and pericardium: Cardiomegaly is seen with biatrial enlargement. Vessels: Mild atherosclerotic changes in the aorta and coronary arteries. The pulmonary trunk measures 34 mm in diameter. Within the limits of a nondedicated exam, no pulmonary embolus is seen. Mediastinum and giovany: Unremarkable. Chest wall and lower neck: Unremarkable. Abdomen: For findings below the diaphragm, please refer to CT of the abdomen dated the same. Bones: Degenerative changes of the thoracic spine. Subacute healing rib fractures are seen. No evidence of acute rib fracture. IMPRESSION: 1. No evidence of acute fracture is seen. Multiple subacute right rib fractures are seen. 2. Cardiomegaly and pulmonary hypertension. Atelectasis is noted. ACT 112: Negative or not required by law. Electronically signed by: Zach Clemons M.D. 07/01/2022 1:13 PM Chest X-Ray 07/01/22 11:22 XR chest 1V portable HISTORY: fall, right rib pain COMPARISON: Chest 10/20/2017. FINDINGS: No pneumothorax. No pleural effusions. There is mild emphysema. Small linear scarlike density within the right midlung zone. Otherwise, the lungs are clear. The heart is top normal in size. A vascular stent is seen within the upper abdomen. No acute rib fractures are identified. IMPRESSION: No acute process. ACT 112: Negative or not required by law. Electronically signed by: Guevara Hansen M.D. 07/01/2022 12:51 PM Hip/Pelvis X-Ray 07/01/22 11:22 XR hip RT 2V w pelvis CLINICAL HISTORY: Right hip pain following fall. COMPARISON: CT of the abdomen and pelvis June 24, 2019. Skeletal survey January 01, 2017. FINDINGS: Sacroiliac joints and symphysis pubis are intact. No acute proximal femoral fracture is present. There is a mildly displaced fracture of the right inferior pubic ramus, likely acute. Possible fracture of the medial right pubic bone is noted. Moderate to large stool within the visualized colon and rectum is present. IMPRESSION: 1. Mildly displaced fracture of the right inferior pubic ramus, likely acute. Possible nondisplaced fracture of the medial right pubic bone. 2. No acute proximal femoral fracture. ACT 112: Negative or not required by law. Electronically signed by: Mane Donovan M.D. 07/01/2022 12:39 PM Abdomen/Pelvis CT 07/01/22 11:29 CT OF THE ABDOMEN AND PELVIS WITH CONTRAST CLINICAL HISTORY: Right flank pain following fall. COMPARISON STUDY: CT of the abdomen and pelvis June 24, 2019. TECHNIQUE: Following IV administration of 85 mL of Optiray, axial images of the abdomen and pelvis were obtained from the lung bases to the proximal femurs. Images were reviewed in the axial, sagittal, and coronal planes. IV contrast was administered without complication. Automated exposure control was utilized for the study. A dose lowering technique was utilized adhering to the principles of ALARA. FINDINGS: Multiple old bilateral lower rib fractures are noted. No hemoperitoneum or pneumoperitoneum is present. There is no evidence for hepatic injury to the liver, spleen, adrenal glands, kidneys or pancreas. Water attenuation renal lesions favor cysts. A stent within the left renal vein is noted. This appears patent and unchanged in position. Moderate to large amount of stool within the colon and rectum is noted. Evaluation of the abdomen and pelvis is difficult given a positive intra-abdominal fat. There is no free fluid. The prostate is enlarged. A water attenuation focus within the right groin remains unchanged. No acute proximal femoral fracture is present. There is no acute lumbar spine fracture. There is an acute nondisplaced fracture of the right sacral ala. An acute comminuted mildly displaced fracture pf the right inferior pubic ramus is noted. There is an acute nondisplaced fracture of the medial right pubic bone. IMPRESSION: 1. Acute comminuted mildly displaced right inferior pubic ramus fracture. Acute nondisplaced fractures of the medial right pubic bone and right sacral ala. 2. No evidence for traumatic injury to the solid abdominal viscera. 3. Moderate to large amount of stool within the colon and rectum. ACT 112: Negative or not required by law. Electronically signed by: Mane Donovan M.D. 07/01/2022 1:[address] 07/01/22 12:34 CT hip RT w con HISTORY: Fall. right hip pain TECHNIQUE: Multiaxial CT images of the right hip were performed following the intravenous ministration of contrast and reformatted in the sagittal and coronal planes. COMPARISON STUDY: Right hip radiograph 07/01/2022. FINDINGS: No fracture or dislocation within the proximal right femur. Mildly displaced fracture within the right inferior pubic ramus. There is nondisplaced fracture within the medial pubic bones. This likely extends into the medial aspect of the right superior pubic ramus. No significant hip effusion. Vascular calcifications are noted. Mild osteoarthritis within the right hip. IMPRESSION: 1. Acute right pubic bone fractures. 2. No acute fracture or dislocation within the proximal right femur. ACT 112: Negative or not required by law. Electronically signed by: Guevara Hansen M.D. 07/01/2022 1:38 PM Code Status & VTE Plan Code Status Full code - discussed with the patient and his at bedside. Daughter is medical power of screen printing stencil preparer. Pt would not want life prolonging measures. Supervising Physician Co-Signing Physician Notes I have seen and examined the patient and have discussed the case with the provider above. I agree with the assessment and plan as stated. 81-year-old man with Parkinson's disease sustained a fall while transitioning to a bedside commode. He subsequently had a pubic rami fracture and is in pain. Blood pressure is elevated to 200 systolic on the floor. He responded somewhat to 5 mg of hydralazine. Pain is described as a 9 out of 10 in addition to the Tylenol scheduled including the 1000 mg he received earlier he is being given tramadol 50 mg. He is hesitant to take "addictive" medications. He understands that uncontrolled pain may lead to hospital delirium and strain and stress on his heart through hypertension. He is otherwise not reporting any symptoms at this time. Physical exam reveals a thin male in no acute distress. He is holding his arms close to his chest almost as a default position. Movement generally is limited given pubic rami fracture. Lungs are clear to auscultation bilaterally. Cardiac exam is unremarkable. Skin is warm and dry. He exhibits typical features of Parkinson's including muscle rigidity He was evaluated by orthopedics with a plan to weight-bear as tolerated with walker and progress as tolerated. We will continue with PT OT and case management evaluations. Otherwise continue plan as listed above. DO Reza.
[2022-07-01] MEDS ORDERED: bisacodyL 10 MG SUPP PR PRN (15:20)
[2022-07-01] MEDS ORDERED: ONDANSETRON INJ 2 MG/ML 2 ML VIAL IV PRN (15:20)
[2022-07-01] MEDS ORDERED: hydrALAZINE HCL 20 MG/ML VIAL IV STA ×2 (16:01→21:27)
[2022-07-01] MEDS: bisacodyL 5 MG TABEC PO SCH (16:28)
[2022-07-01] MEDS: POLYETHYLENE (MIRALAX) 17 GM PACK PO SCH (16:29)
[2022-07-01] MEDS: traMADol HCL 50 MG TABLET PO PRN (16:39)
--- NOTE | 2022-07-01 17:07 | Orthopedic Consultation ---
Date of Consultation July 01, 2022 Assessment & Plan (1) Pelvis fracture, right: IMPRESSION: Right pubic rami and sacral ala fractures, non-displaced, acute, closed. PLAN: WBAT with walker, progressing as tolerated. PT/OT Continue pain control and DVT prophylaxis per primary service. Resume diet. D/C planning. Would follow up as out patient in 2 weeks with repeat x-rays AP pelvis, Inlet and Outlet views. Continue care per primary service. Present on Admission?: Yes History of Present Illness Reason for Consultation: Right Pubic Rami Fractures Requesting Physician: Willian Lazo MD Attending Physician: Alisha Cobb, DO History of Present Illness 81 yo male fell last evening trying to get on his commode. He has a h/o Parkinson's. He is unable to bare weight. He came to ED where x-rays and CT were obtained. He has been admitted to Hospitalist service. Orthopedics was consulted for evaluation and treatment of the pelvic fractures. Denies any other injuries other than ribs. Allergies Allergy/AdvReac Type Severity Reaction Status Date / Time doxycycline Allergy Intermediate HOARSENESS,THROAT Verified 07/01/22 13:36 GOT TIGHT grass pollen-perennial rye, Allergy Intermediate CONGESTION, Verified 07/01/22 13:36 standar ITCHY EYES, SNEEZING pollen extracts Allergy Intermediate CONGESTION, Verified 07/01/22 13:36 ITCHY EYES, SNEEZING Sulfa (Sulfonamide Allergy Intermediate Unknown Verified 07/01/22 13:36 Antibiotics) Dust Allergy Intermediate CONGESTION, Uncoded 07/01/22 13:36 ITCHY EYES, SNEEZING Home Medications Medication Instructions Recorded Confirmed Type cholecalciferol (vitamin D3) 25 1,000 unit PO QAM 05/19/19 07/01/22 History mcg (1,000 unit) capsule (Vitamin D3) ascorbic acid (vitamin C) 500 mg 500 mg PO 4XWK 07/01/22 07/01/22 History tablet (Vitamin C) carbidopa 25 mg-levodopa 100 mg See Rx Instructions .Route .COMPLEX 07/01/22 07/01/22 History tablet zinc acetate 25 mg (zinc) capsule 25 mg PO 3XWK 07/01/22 07/01/22 History Patient History Medical History Cardiac murmur Echo 01/2019 = Mild MR and aortic sclerosis without stenosis. 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 Christian 02/11/17 Hx of cataract surgery bilateral Hx of inguinal hernia surgery (07/12/19) Right Open Inguinal Hernia Repair with Mesh Dr. Amado 07-12-19 Status post Mohs surgery Family History (System 01/21/20 @ 15:16 by Katiuskajs Sepulveda) Mother Cancer Hypertension Father Heart disease Sister Stroke Other Family history non-contributory No family history of adverse response to anesthesia Social History Smoking Status: Never smoker Second Hand Exposure: No; Do You Dip or Chew Tobacco: No; Hx Alcohol Use: No Hx Substance Use: No Preferred Language: Hebrew Communication Ability: Effective Mop Worker Required: No Beliefs That Will Affect Care: None marital status: Current Living Situation: Spouse current occupational status: retired current occupation: Retired Teacher Feels Safe at Home: Yes Safety Concerns: Feels Safe At This Time Assistive Devices: Glasses Review of Systems Review of Systems: All systems reviewed & are unremarkable except as noted in HPI & below Physical Exam Physical Exam: B/L LE: Sensation to light touch intact. BCR < 2 sec. Motor to toes and ankle intact. Calf soft and non-tender. - Log roll hips. Pain free ROM of the hips. + tenderness to palpation groin and pubic symphysis. No tenderness to palpation right ribs. Results & Data ([facility]) Vital Signs (Past 12 Hours) Vital Signs Temp Pulse Pulse Resp BP BP Pulse Ox 07/01/22 16:28 201/106 H 07/01/22 15:39 36.4 C L 66 16 207/98 H 92 07/01/22 14:50 07/01/22 14:30 64 13 174/100 H 94 07/01/22 14:00 74 16 94 07/01/22 13:30 74 13 07/01/22 13:00 68 15 93 07/01/22 12:00 62 18 94 07/01/22 11:31 63 17 95 07/01/22 11:23 36.6 C 88 16 157/93 H 95 O2 Del Method 07/01/22 16:28 07/01/22 15:39 Room Air 07/01/22 14:50 Room Air 07/01/22 14:30 07/01/22 14:00 07/01/22 13:30 07/01/22 13:00 07/01/22 12:00 07/01/22 11:31 07/01/22 11:23 Room Air Laboratory Results Laboratory Results WBC 7.26 K/ul (4.8-10.8) 07/01/22 11:26 RBC 3.84 M/uL (4.63-6.08) L 07/01/22 11:26 Hgb 12.9 g/dl (14.0-18.0) L 07/01/22 11:26 Hct 37.4 % (40.1-51.0) L 07/01/22 11:26 MCV 97.4 fL (80.0-100.0) 07/01/22 11:26 MCH 33.6 pg (25.0-34.0) 07/01/22 11:26 MCHC 34.5 g/dL (32.0-36.0) 07/01/22 11:26 RDW Std Deviation 45.5 fL (36.4-46.3) 07/01/22 11:26 RDW Coeff of Olena 12.8 % (11.5-14.5) 07/01/22 11:26 Plt Count 127 K/uL (130-400) L 07/01/22 11:26 MPV 12.6 fL (9.4-12.4) H 07/01/22 11:26 Sodium 135 mmol/L (136-145) L 07/01/22 11:26 Potassium 4.0 mmol/L (3.5-5.1) 07/01/22 11:26 Chloride 102 mmol/L (98-107) 07/01/22 11:26 Carbon Dioxide 27 mmol/L (21-32) 07/01/22 11:26 Anion Gap 6 (3-11) 07/01/22 11:26 BUN 27 mg/dl (6-23) H 07/01/22 11:26 Creatinine 0.76 mg/dl (0.6-1.4) 07/01/22 11:26 Est Cr Clr Drug Dosing 75.8 ml/min 07/01/22 11:26 Est GFR ( Amer) 100.6 ml/min 07/01/22 11:26 Est GFR (Non-Af Amer) 86.8 ml/min 07/01/22 11:26 BUN/Creatinine Ratio 35.5 (10-20) H 07/01/22 11:26 Glucose 104 mg/dl (70-99(Fasting)) H 07/01/22 11:26 Calcium 8.8 mg/dl (8.5-10.1) 07/01/22 11:26 Total Bilirubin 0.8 mg/dl (0.2-1.0) 07/01/22 11:26 AST 18 U/L (13-39) 07/01/22 11:26 ALT 7 U/L (7-52) 07/01/22 11:26 Alkaline Phosphatase 81 U/L (34-104) 07/01/22 11:26 Total Protein 6.9 gm/dl (6.0-8.3) 07/01/22 11:26 Albumin 3.9 gm/dl (3.4-5.0) 07/01/22 11:26 Globulin 3.0 gm/dl (2.5-4.0) 07/01/22 11:26 Albumin/Globulin Ratio 1.3 (0.9-2) 07/01/22 11:26 Urine Color Yellow 07/01/22 Unknown Urine Appearance Clear (Clear) 07/01/22 Unknown Urine pH 7.5 (4.5-7.5) 07/01/22 Unknown Ur Specific [place] 1.020 (1.000-1.030) 07/01/22 Unknown Urine Protein Negative (Negative) 07/01/22 Unknown Urine Glucose (UA) Negative (Negative) 07/01/22 Unknown Urine Ketones Negative (Negative) 07/01/22 Unknown Urine Blood Negative (Negative) 07/01/22 Unknown Urine Nitrite Negative (Negative) 07/01/22 Unknown Urine Bilirubin Negative (Negative) 07/01/22 Unknown Urine Urobilinogen Negative (Negative) 07/01/22 Unknown Ur Leukocyte Esterase Negative (Negative) 07/01/22 Unknown SARS-CoV-2, RNA, NAAT NEGATIVE (NEGATIVE) 07/01/22 11:[address] 07/01/22 11:22 CT chest diagnostic w con CLINICAL HISTORY: fall, right rib pain TECHNIQUE: Multidetector row helical CT of the chest was performed with intravenous contrast. Coronal and sagittal reformations were obtained. Automated dose lowering techniques and/or adjustment according to patient size were uti lized for this exam. CT DOSE: 605.68 mGy.cm Comparison: Comparison is made to CT chest 10/20/2017 FINDINGS: Lungs and pleura: Atelectasis versus scarring is seen in the dependent portions of the lungs. Heart and pericardium: Cardiomegaly is seen with biatrial enlargement. Vessels: Mild atherosclerotic changes in the aorta and coronary arteries. The pulmonary trunk measures 34 mm in diameter. Within the limits of a nondedicated exam, no pulmonary embolus is seen. Mediastinum and giovany: Unremarkable. Chest wall and lower neck: Unremarkable. Abdomen: For findings below the diaphragm, please refer to CT of the abdomen dated the same. Bones: Degenerative changes of the thoracic spine. Subacute healing rib fractures are seen. No evidence of acute rib fracture. IMPRESSION: 1. No evidence of acute fracture is seen. Multiple subacute right rib fractures are seen. 2. Cardiomegaly and pulmonary hypertension. Atelectasis is noted. ACT 112: Negative or not required by law. Electronically signed by: Zach Clemons M.D. 07/01/2022 1:13 PM Chest X-Ray 07/01/22 11:22 XR chest 1V portable HISTORY: fall, right rib pain COMPARISON: Chest 10/20/2017. FINDINGS: No pneumothorax. No pleural effusions. There is mild emphysema. Small linear scarlike density within the right midlung zone. Otherwise, the lungs are clear. The heart is top normal in size. A vascular stent is seen within the upper abdomen. No acute rib fractures are identified. IMPRESSION: No acute process. ACT 112: Negative or not required by law. Electronically signed by: Guevara Hansen M.D. 07/01/2022 12:51 PM Hip/Pelvis X-Ray 07/01/22 11:22 XR hip RT 2V w pelvis CLINICAL HISTORY: Right hip pain following fall. COMPARISON: CT of the abdomen and pelvis June 24, 2019. Skeletal survey January 01, 2017. FINDINGS: Sacroiliac joints and symphysis pubis are intact. No acute proximal femoral fracture is present. There is a mildly displaced fracture of the right inferior pubic ramus, likely acute. Possible fracture of the medial right pubic bone is noted. Moderate to large stool within the visualized colon and rectum is present. IMPRESSION: 1. Mildly displaced fracture of the right inferior pubic ramus, likely acute. Possible nondisplaced fracture of the medial right pubic bone. 2. No acute proximal femoral fracture. ACT 112: Negative or not required by law. Electronically signed by: Mane Donovan M.D. 07/01/2022 12:39 PM Abdomen/Pelvis CT 07/01/22 11:29 CT OF THE ABDOMEN AND PELVIS WITH CONTRAST CLINICAL HISTORY: Right flank pain following fall. COMPARISON STUDY: CT of the abdomen and pelvis June 24, 2019. TECHNIQUE: Following IV administration of 85 mL of Optiray, axial images of the abdomen and pelvis were obtained from the lung bases to the proximal femurs. Images were reviewed in the axial, sagittal, and coronal planes. IV contrast was administered without complication. Automated exposure control was utilized for the study. A dose lowering technique was utilized adhering to the principles of ALARA. FINDINGS: Multiple old bilateral lower rib fractures are noted. No hemoperitoneum or pneumoperitoneum is present. There is no evidence for hepatic injury to the liver, spleen, adrenal glands, kidneys or pancreas. Water attenuation renal lesions favor cysts. A stent within the left renal vein is noted. This appears patent and unchanged in position. Moderate to large amount of stool within the colon and rectum is noted. Evaluation of the abdomen and pel vis is difficult given a positive intra-abdominal fat. There is no free fluid. The prostate is enlarged. A water attenuation focus within the right groin remains unchanged. No acute proximal femoral fracture is present. There is no acute lumbar spine fracture. There is an acute nondisplaced fracture of the right sacral ala. An acute comminuted mildly displaced fracture pf the right inferior pubic ramus is noted. There is an acute nondisplaced fracture of the medial right pubic bone. IMPRESSION: 1. Acute comminuted mildly displaced right inferior pubic ramus fracture. Acute nondisplaced fractures of the medial right pubic bone and right sacral ala. 2. No evidence for traumatic injury to the solid abdominal viscera. 3. Moderate to large amount of stool within the colon and rectum. ACT 112: Negative or not required by law. Electronically signed by: Mane Donovan M.D. 07/01/2022 1:[address] 07/01/22 12:34 CT hip RT w con HISTORY: Fall. right hip pain TECHNIQUE: Multiaxial CT images of the right hip were performed following the intravenous ministration of contrast and reformatted in the sagittal and coronal planes. COMPARISON STUDY: Right hip radiograph 07/01/2022. FINDINGS: No fracture or dislocation within the proximal right femur. Mildly displaced fracture within the right inferior pubic ramus. There is nondisplaced fracture within the medial pubic bones. This likely extends into the medial aspect of the right superior pubic ramus. No significant hip effusion. Vascular calcifications are noted. Mild osteoarthritis within the right hip. IMPRESSION: 1. Acute right pubic bone fractures. 2. No acute fracture or dislocation within the proximal right femur. ACT 112: Negative or not required by law. Electronically signed by: Guevara Hansen M.D. 07/01/2022 1:38 PM
[2022-07-01] MEDS: ACETAMINOPHEN 500 MG TAB PO SCH (20:10)
[2022-07-01] MEDS ORDERED: amLODIPine BESYLATE 5 MG TAB PO ONE (21:26)
--- NOTE | 2022-07-02 09:29 | Hospitalist Progress Note ---
Date of Service July 02, 2022 Assessment & Plan (1) Fracture of right inferior pubic ramus: (2) Pelvis fracture, right: (3) Parkinsons: (4) Ambulatory dysfunction: Plan: - Xray c/w R inferior pubic rami fracture, right medial pelvic fracture, sacral bella fracture. Also noted are multiple subacute right rib fractures on chest CT. - Hx of Parkinsons disease and follows with Dr. Batista - continue on sinemet - Fall precautions - hx of multiples falls likely secondary to Parkinson progression, BPH with frequent bathroom trips increasing likelihood of falls - PT/OT consults - pt would likely benefit from short term inpatient stay - Ortho consulted - likely nonoperable but would appreciate mobility and weight bearing recs Per ortho: WBAT with walker, progressing as tolerated. PT/OT Continue pain control and DVT prophylaxis per primary service. D/C planning - plan to Dc to [facility] Follow up as outpatient in 2 weeks with repeat x-rays AP pelvis, Inlet and Outlet views. - Continue pain control with [id number] Tylenol, tramadol prn, bowel regimen with constipation seen on imaging, patient was not using any other pain medicine at home. Consider iv meds for breakthrough pain but currently does not need - Given 1 L NSS in the ER, allow diet, no further fluids for now - BMI of 19, ordered nutritional assessment while inpatient (5) Enlarged prostate: Plan: - Hx of such, has recently been prescribed proscar by Dr. Sepulveda with urology, however pt is not taking due to possible adverse reactions/side effects. He did take the medication for a few months but stopped in April. He denies worsening urinary symptoms - Consider mc cath placement if needed - UA appears clean on admission DVT ppx: - teds, scds CODE: Full code Dispo: From home, likely to remain in the hospital x 1-2 days, CM to assist with dc planning and possible inpt rehab for PT/OT Admission and Anticipated Discharge Date Admission Date: July 01, 2022 Subjective Pt seen in follow up of pelvic fx Currently sitting up in bed in NAD, pt's at the bedside Pt denies any fever, chills, chest pain, shortness of breath, abd. pain + constipation, bowel regimen ordered Reports he worked with PT/OT - recommend rehab CM aware - plan for [facility] Review of Systems Review of Systems: All systems reviewed & are unremarkable except as noted in Subjective Physical Exam Physical Exam: General: thin elderly M in NAD Head: Normocephalic, atraumatic ENT: PERRL, EOMI Chest: Clear to auscultation, on room air, no adventitious breath sounds Cardiac: Regular rate and rhythm, no murmur Abdominal: NABS x 4 quadrants, soft, nondistended, nontender to palpation Extremities: Normal inspection, no peripheral edema or erythema, calves nontender to palpation Psych: Normal mood and affect Skin: seborrheic keratosis mostly over face, trunk and back, multiple areas of the body Neuro: AAO x 3, + slower speaking, however speech is clear, answering appropriately, moves extremities Results & Data Results & Data ([facility]) Vital Signs (Past 12 Hours) Vital Signs Temp Pulse Resp BP Pulse Ox O2 Del Method 07/02/22 07:23 36.8 C 83 16 137/70 94 Room Air 07/02/22 02:31 36.6 C 83 18 141/75 H 93 Room Air Laboratory Results 07/01/22 07/01/22 07/01/22 Range/Units Unknown 11:43 11:26 WBC (4.8-10.8) K/ul RBC (4.63-6.08) M/uL Hgb (14.0-18.0) g/dl Hct (40.1-51.0) % MCV (80.0-100.0) fL MCH (25.0-34.0) pg MCHC (32.0-36.0) g/dL RDW Std Deviation (36.4-46.3) fL RDW Coeff of Olena (11.5-14.5) % Plt Count (130-400) K/uL MPV (9.4-12.4) fL Sodium 135 L (136-145) mmol/L Potassium 4.0 (3.5-5.1) mmol/L Chloride 102 (98-107) mmol/L Carbon Dioxide 27 (21-32) mmol/L Anion Gap 6 (3-11) BUN 27 H (6-23) mg/dl Creatinine 0.76 (0.6-1.4) mg/dl Est Cr Clr Drug Dosing 75.8 ml/min Est GFR ( Amer) 100.6 ml/min Est GFR (Non-Af Amer) 86.8 ml/min BUN/Creatinine Ratio 35.5 H (10-20) Glucose 104 H (70-99(Fasting)) mg/dl Calcium 8.8 (8.5-10.1) mg/dl Total Bilirubin 0.8 (0.2-1.0) mg/dl AST 18 (13-39) U/L ALT 7 (7-52) U/L Alkaline Phosphatase 81 (34-104) U/L Total Protein 6.9 (6.0-8.3) gm/dl Albumin 3.9 (3.4-5.0) gm/dl Globulin 3.0 (2.5-4.0) gm/dl Albumin/Globulin Ratio 1.3 (0.9-2) Urine Color Yellow Urine Appearance Clear (Clear) Urine pH 7.5 (4.5-7.5) Ur Specific [place] 1.020 (1.000-1.030) Urine Protein Negative (Negative) Urine Glucose (UA) Negative (Negative) Urine Ketones Negative (Negative) Urine Blood Negative (Negative) Urine Nitrite Negative (Negative) Urine Bilirubin Negative (Negative) Urine Urobilinogen Negative (Negative) Ur Leukocyte Esterase Negative (Negative) SARS-CoV-2, RNA, NAAT NEGATIVE (NEGATIVE) 07/01/22 Range/Units 11:26 WBC 7.26 (4.8-10.8) K/ul RBC 3.84 L (4.63-6.08) M/uL Hgb 12.9 L (14.0-18.0) g/dl Hct 37.4 L (40.1-51.0) % MCV 97.4 (80.0-100.0) fL MCH 33.6 (25.0-34.0) pg MCHC 34.5 (32.0-36.0) g/dL RDW Std Deviation 45.5 (36.4-46.3) fL RDW Coeff of Olena 12.8 (11.5-14.5) % Plt Count 127 L (130-400) K/uL MPV 12.6 H (9.4-12.4) fL Sodium (136-145) mmol/L Potassium (3.5-5.1) mmol/L Chloride (98-107) mmol/L Carbon Dioxide (21-32) mmol/L Anion Gap (3-11) BUN (6-23) mg/dl Creatinine (0.6-1.4) mg/dl Est Cr Clr Drug Dosing ml/min Est GFR ( Amer) ml/min Est GFR (Non-Af Amer) ml/min BUN/Creatinine Ratio (10-20) Glucose (70-99(Fasting)) mg/dl Calcium (8.5-10.1) mg/dl Total Bilirubin (0.2-1.0) mg/dl AST (13-39) U/L ALT (7-52) U/L Alkaline Phosphatase (34-104) U/L Total Protein (6.0-8.3) gm/dl Albumin (3.4-5.0) gm/dl Globulin (2.5-4.0) gm/dl Albumin/Globulin Ratio (0.9-2) Urine Color Urine Appearance (Clear) Urine pH (4.5-7.5) Ur Specific [place] (1.000-1.030) Urine Protein (Negative) Urine Glucose (UA) (Negative) Urine Ketones (Negative) Urine Blood (Negative) Urine Nitrite (Negative) Urine Bilirubin (Negative) Urine Urobilinogen (Negative) Ur Leukocyte Esterase (Negative) SARS-CoV-2, RNA, NAAT (NEGATIVE) Medications Administered Current Inpatient Medications Acetaminophen (Acetaminophen 500 Mg Tab) 1,000 mg PO TID [facility] Stop: 07/31/22 20:59 Last Admin: 07/01/22 20:10 Dose: 1,000 mg Bisacodyl (Bisacodyl 5 Mg Tabec) 5 mg PO DAILY [facility] Stop: 07/31/22 15:19 Last Admin: 07/01/22 16:28 Dose: 5 mg Bisacodyl (Bisacodyl 10 Mg Supp) [address] DAILY PRN PRN Reason: Constipation Stop: 07/31/22 15:19 Ondansetron HCl (Ondansetron Inj 2 Mg/Ml 2 Ml Vial) 4 mg IV Q4H PRN PRN Reason: Nausea And Vomiting Stop: 07/31/22 15:19 Polyethylene Glycol (Polyethylene (Miralax) 17 Gm Pack) 17 gm PO DAILY [facility] Stop: 07/31/22 15:19 Last Admin: 07/01/22 16:29 Dose: 17 gm Tramadol HCl (Tramadol Hcl 50 Mg Tablet) 50 mg PO Q4H PRN PRN Reason: Pain, moderate, rating 5,6,7,8 Stop: 07/31/22 15:22 Last Admin: 07/01/22 16:39 Dose: 50 mg
[2022-07-02] MEDS: bisacodyL 5 MG TABEC PO SCH (10:37)
[2022-07-02] MEDS: ACETAMINOPHEN 500 MG TAB PO SCH ×3 (10:38→21:53)
[2022-07-02] MEDS: POLYETHYLENE (MIRALAX) 17 GM PACK PO SCH (10:38)
[2022-07-02 10:42] LABS: Calcium 8.9 mg/dl (8.5-10.1); Creatinine Clr Calc Pharmacy 80.5 ml/min; Est GFR (African American) 97.5 ml/min; Est GFR (Non-African American) 84.1 ml/min; Potassium 3.7 mmol/L (3.5-5.1)
[2022-07-02] MEDS: traMADol HCL 50 MG TABLET PO PRN (10:44)
[2022-07-02 10:57] LABS: Hematocrit (blood only) 36.9 % (40.1-51.0); Hemoglobin 12.8 g/dl (14.0-18.0); Mean Corpuscular Hemoglobin 33.1 pg (25.0-34.0); Mean Corpuscular Hgb Conc 34.7 g/dL (32.0-36.0); Mean Corpuscular Volume 95.3 fL (80.0-100.0); Mean Platelet Volume 13.7 fL (9.4-12.4); Platelet Count 131 K/uL (130-400); RDW Coefficient of Variation 12.9 % (11.5-14.5); RDW Standard Deviation 44.7 fL (36.4-46.3); Red Blood Count 3.87 M/uL (4.63-6.08); White Blood Count 6.88 K/ul (4.8-10.8)
[2022-07-02] MEDS: CARBIDOPA/LEVODOPA 25/100MG TAB PO SCH ×2 (12:57→18:02)
--- NOTE | 2022-07-03 07:07 | Hospitalist Progress Note ---
Date of Service July 03, 2022 Assessment & Plan (1) Fracture of right inferior pubic ramus: (2) Pelvis fracture, right: (3) Parkinsons: (4) Ambulatory dysfunction: Plan: - Xray c/w R inferior pubic rami fracture, right medial pelvic fracture, sacral bella fracture. Also noted are multiple subacute right rib fractures on chest CT. - Hx of Parkinsons disease and follows with Dr. Batista - continue on sinemet - Fall precautions - hx of multiples falls likely secondary to Parkinson progression, BPH with frequent bathroom trips increasing likelihood of falls - PT/OT consults - pt would likely benefit from short term inpatient stay - Ortho consulted - likely nonoperable but would appreciate mobility and weight bearing recs Per ortho: WBAT with walker, progressing as tolerated. PT/OT Continue pain control and DVT prophylaxis per primary service. D/C planning - plan to Dc to [facility] Follow up as outpatient in 2 weeks with repeat x-rays AP pelvis, Inlet and Outlet views. - Continue pain control with [id number] Tylenol, tramadol prn, bowel regimen with constipation seen on imaging, patient was not using any other pain medicine at home. Consider iv meds for breakthrough pain but currently does not need - BMI of 19, ordered nutritional assessment while inpatient (5) Enlarged prostate: Plan: - Hx of such, has recently been prescribed proscar by Dr. Sepulveda with urology, however pt is not taking due to possible adverse reactions/side effects. He did take the medication for a few months but stopped in April. He denies worsening urinary symptoms - UA negat. on admission DVT ppx: - teds, scds CODE: Full code Dispo: From home, plan to [facility] Admission and Anticipated Discharge Date Admission Date: July 01, 2022 Subjective Pt seen in follow up of pelvic fx Currently sitting up in chair in NAD, pt just worked with PT Pt denies any fever, chills, chest pain, shortness of breath, abd. pain + constipation, had BM this AM Plan to DC to [facility] Review of Systems Review of Systems: All systems reviewed & are unremarkable except as noted in Subjective Physical Exam Physical Exam: General: thin elderly M in NAD Head: Normocephalic, atraumatic ENT: PERRL, EOMI Chest: Clear to auscultation, on room air, no adventitious breath sounds Cardiac: Regular rate and rhythm, no murmur Abdominal: NABS x 4 quadrants, soft, nondistended, nontender to palpation Extremities: Normal inspection, no peripheral edema or erythema, calves nontender to palpation Psych: Normal mood and affect Skin: seborrheic keratosis mostly over face, trunk and back, multiple areas of the body Neuro: AAO x 3, + slower speaking, however speech is clear, answering appropriately, moves extremities Results & Data Results & Data ([facility]) Vital Signs (Past 12 Hours) Vital Signs Temp Pulse Resp BP Pulse Ox O2 Del Method 07/02/22 22:39 36.5 C 82 16 171/92 H 92 Room Air Laboratory Results 07/03/22 07/03/22 Range/Units 07:52 07:52 WBC 6.49 (4.8-10.8) K/ul RBC 3.71 L (4.63-6.08) M/uL Hgb 12.4 L (14.0-18.0) g/dl Hct 35.5 L (40.1-51.0) % MCV 95.7 (80.0-100.0) fL MCH 33.4 (25.0-34.0) pg MCHC 34.9 (32.0-36.0) g/dL RDW Std Deviation 45.2 (36.4-46.3) fL RDW Coeff of Olena 12.9 (11.5-14.5) % Plt Count 129 L (130-400) K/uL MPV 13.1 H (9.4-12.4) fL Sodium 136 (136-145) mmol/L Potassium 4.0 (3.5-5.1) mmol/L Chloride 104 (98-107) mmol/L Carbon Dioxide 26 (21-32) mmol/L Anion Gap 6 (3-11) BUN 30 H (6-23) mg/dl Creatinine 0.89 (0.6-1.4) mg/dl Est Cr Clr Drug Dosing 74.2 ml/min Est GFR ( Amer) 94.3 ml/min Est GFR (Non-Af Amer) 81.3 ml/min BUN/Creatinine Ratio 33.7 H (10-20) Glucose 97 (70-99(Fasting)) mg/dl Calcium 8.5 (8.5-10.1) mg/dl Phosphorus 2.7 (2.5-4.9) mg/dl Magnesium 1.9 (1.7-2.4) mg/dl Medications Administered Current Inpatient Medications Acetaminophen (Acetaminophen 500 Mg Tab) 1,000 mg PO TID [facility] Stop: 07/31/22 20:59 Last Admin: 07/02/22 21:53 Dose: 1,000 mg Bisacodyl (Bisacodyl 5 Mg Tabec) 5 mg PO DAILY [facility] Stop: 07/31/22 15:19 Last Admin: 07/02/22 10:37 Dose: 5 mg Bisacodyl (Bisacodyl 10 Mg Supp) 10 mg DE DAILY PRN PRN Reason: Constipation Stop: 07/31/22 15:19 Carbidopa/Levodopa (Carbidopa/Levodopa 25/100mg Tab) 2 tab PO DAILY@0800,1200 [facility] Stop: 08/01/22 11:59 Last Admin: 07/02/22 12:57 Dose: Not Given Carbidopa/Levodopa (Carbidopa/Levodopa 25/100mg Tab) 1 tab PO DAILY@1700 [facility] Stop: 08/01/22 16:59 Last Admin: 07/02/22 18:02 Dose: 1 tab Ondansetron HCl (Ondansetron Inj 2 Mg/Ml 2 Ml Vial) 4 mg IV Q4H PRN PRN Reason: Nausea And Vomiting Stop: 07/31/22 15:19 Polyethylene Glycol (Polyethylene (Miralax) 17 Gm Pack) 17 gm PO DAILY [facility] Stop: 07/31/22 15:19 Last Admin: 07/02/22 10:38 Dose: 17 gm Tramadol HCl (Tramadol Hcl 50 Mg Tablet) 50 mg PO Q4H PRN PRN Reason: Pain, moderate, rating 5,6,7,8 Stop: 07/31/22 15:22 Last Admin: 07/02/22 10:44 Dose: 50 mg
[2022-07-03] MEDS: CARBIDOPA/LEVODOPA 25/100MG TAB PO SCH ×3 (07:44→17:11)
[2022-07-03] MEDS: ACETAMINOPHEN 500 MG TAB PO SCH ×2 (07:44→15:11)
[2022-07-03] MEDS: bisacodyL 5 MG TABEC PO SCH (07:45)
[2022-07-03] MEDS: POLYETHYLENE (MIRALAX) 17 GM PACK PO SCH (07:45)
[2022-07-03 08:31] LABS: Hematocrit (blood only) 35.5 % (40.1-51.0); Hemoglobin 12.4 g/dl (14.0-18.0); Mean Corpuscular Hemoglobin 33.4 pg (25.0-34.0); Mean Corpuscular Hgb Conc 34.9 g/dL (32.0-36.0); Mean Corpuscular Volume 95.7 fL (80.0-100.0); Mean Platelet Volume 13.1 fL (9.4-12.4); Platelet Count 129 K/uL (130-400); RDW Coefficient of Variation 12.9 % (11.5-14.5); RDW Standard Deviation 45.2 fL (36.4-46.3); Red Blood Count 3.71 M/uL (4.63-6.08); White Blood Count 6.49 K/ul (4.8-10.8)
[2022-07-03 08:37] LABS: BUN Creatinine Ratio 33.7 (10-20); Calcium 8.5 mg/dl (8.5-10.1); Creatinine Clr Calc Pharmacy 74.2 ml/min; Est GFR (African American) 94.3 ml/min; Est GFR (Non-African American) 81.3 ml/min; Magnesium 1.9 mg/dl (1.7-2.4); Phosphorus 2.7 mg/dl (2.5-4.9)
--- NOTE | 2022-07-03 12:41 | Discharge Summary ---
Date of Service July 03, 2022 Admission HPI Per Admitting Provider This is a 81-year-old male with PMHx of Parkinson's disease lumbar degenerative disc disease, chronic low back pain, peripheral vascular disease, polyneuropathy, gait disturbance who sustained a fall yesterday. This occurred while he was attempting to pee in a bedside potty due to BPH, but accidentally caught his arm in the pot somehow, upturned it, and fell. He has not been able to walk since he fell yesterday secondary to pain. Pt notes he has not had a bowel movement since prior to the fall. Pt reports pain with any weight placement on the right leg, but while sitting still states it is fine, zero pain. Pt has not used pain medications at home. He is eating and drinking fine, denies any recent weight loss. He does normally walk at home prior to this event. He mentions sustaining a fall several week ago, but cannot recall having any specific pain at that time. His , is present at beside and supports the history. Xrays today show R inferior pubic rami fracture, right medial pelvic fracture, sacral bella fracture. Also noted are multiple subacute right rib fractures on chest CT. Admission Exam Per Admitting Provider General: awake, alert, no apparent distress Head: Normocephalic, atraumatic ENT: PERRL, EOMI, no pharyngeal exudate, mucous membranes slightly dry Chest: Clear to auscultation, on room air, no adventitious breath sounds Cardiac: Regular rate and rhythm, no murmur, no JVD, normal peripheral pulses, good capillary refill Abdominal: NABS x 4 quadrants, soft, nondistended, nontender to palpation, no rebound or guarding Extremities: Normal inspection, no peripheral edema or erythema, calfs nontender to palpation Psych: Normal mood and affect Skin: seborrheic keratosis mostly over face, trunk and back, multiple areas of the body Neuro: AAO x 3, strength intact bilaterally and rated 5/5, + slower speaking, no gross motor deficits, speech is clear, no peripheral sensory deficits Principal Diagnosis Fall, pelvic fracture, history of Parkinson's Discharge Exam General: thin elderly M in NAD Head: Normocephalic, atraumatic ENT: PERRL, EOMI Chest: Clear to auscultation, on room air, no adventitious breath sounds Cardiac: Regular rate and rhythm, no murmur Abdominal: NABS x 4 quadrants, soft, nondistended, nontender to palpation Extremities: Normal inspection, no peripheral edema or erythema, calves nontender to palpation Psych: Normal mood and affect Skin: seborrheic keratosis mostly over face, trunk and back, multiple areas of the body Neuro: AAO x 3, + slower speaking, however speech is clear, answering appropriately, moves extremities Discharge Data Allergies Allergy/AdvReac Type Severity Reaction Status Date / Time doxycycline Allergy Intermediate HOARSENESS,THROAT Verified 07/01/22 13:36 GOT TIGHT grass pollen-perennial rye, Allergy Intermediate CONGESTION, Verified 07/01/22 13:36 standar ITCHY EYES, SNEEZING pollen extracts Allergy Intermediate CONGESTION, Verified 07/01/22 13:36 ITCHY EYES, SNEEZING Sulfa (Sulfonamide Allergy Intermediate Unknown Verified 07/01/22 13:36 Antibiotics) Dust Allergy Intermediate CONGESTION, Uncoded 07/01/22 13:36 ITCHY EYES, SNEEZING Consultations 07/01/22 14:05 ED Decision to Admit Stat 07/01/22 14:15 Consult Orthopedic Surgery Routine Ordered Studies 07/01/22 11:22 CT chest diagnostic w con Stat FINDINGS: Lungs and pleura: Atelectasis versus scarring is seen in the dependent portions of the lungs. Heart and pericardium: Cardiomegaly is seen with biatrial enlargement. Vessels: Mild atherosclerotic changes in the aorta and coronary arteries. The pulmonary trunk measures 34 mm in diameter. Within the limits of a nondedicated exam, no pulmonary embolus is seen. Mediastinum and giovany: Unremarkable. Chest wall and lower neck: Unremarkable. Abdomen: For findings below the diaphragm, please refer to CT of the abdomen dated the same. Bones: Degenerative changes of the thoracic spine. Subacute healing rib fr actures are seen. No evidence of acute rib fracture. IMPRESSION: 1. No evidence of acute fracture is seen. Multiple subacute right rib fractures are seen. 2. Cardiomegaly and pulmonary hypertension. Atelectasis is noted. 07/01/22 11:29 CT abd pelvis IV con only Stat FINDINGS: Web Design Specialist topogram: Vascular stent projects over the epigastrium. Lung bases: Normal heart size. No pericardial or pleural effusion. Minimal dependent changes likely atelectasis. Liver: Normal morphology. No liver lesion. Patent hepatic vasculature. Biliary: No intrahepatic or extrahepatic biliary ductal dilatation. Gallbladder decompressed. Pancreas: Mild parenchymal atrophy. Spleen: Normal. Adrenal glands: Normal. Kidneys and ureters: Bilateral cysts, which are grossly simple appearing. No nephrolithiasis or hydronephrosis. Bladder: Circumferential bladder wall thickening. Pelvic organs: Prostate enlargement likely secondary to benign prostatic hyperplasia. Bowel: Moderate stool burden throughout normal caliber colon. The appendix is not visualized. The ileocecal valve is located in the right upper quadrant. No bowel structure and. Peritoneal cavity: No free fluid or intraperitoneal gas. Lymph nodes: No enlarged lymph nodes in the abdomen or pelvis. Vasculature: Atherosclerosis of the normal caliber abdominal aorta. IVC patent. Stents located within the left renal vein, which is patent. Abdominal wall: Small bilateral inguinal hernias. On the right, fluid within the inguinal hernia may represent a short knuckle of unobstructed small bowel. On the left, additional short knuckle of unobstructed unobstructed small bowel. Small fat-containing umbilical hernia. Multiple skin lesions are suggested along the ventral abdomen. Musculoskeletal: Degenerative changes of the spine. Osteopenia. IMPRESSION: 1. Moderate stool burden suggests constipation. 2. Small bilateral inguinal hernias, which are suspected to contain short knuckles of unobstructed small bowel. Correlate clinically for reducibility, which would be best assessed with ultrasound. 3. Chronic bladder outlet obstruction secondary to prostatomegaly. 4. Patent left renal stent. 07/01/22 12:34 CT hip RT w con Stat FINDINGS: No fracture or dislocation within the proximal right femur. Mildly displaced fracture within the right inferior pubic ramus. There is nondisplaced fracture within the medial pubic bones. This likely extends into the medial aspect of the right superior pubic ramus. No significant hip effusion. Vascular calcifications are noted. Mild osteoarthritis within the right hip. IMPRESSION: 1. Acute right pubic bone fractures. 2. No acute fracture or dislocation within the proximal right femur. Hospital Course (1) Fracture of right inferior pubic ramus: (2) Pelvis fracture, right: (3) Parkinsons: (4) Ambulatory dysfunction: - Xray c/w R inferior pubic rami fracture, right medial pelvic fracture, sacral bella fracture. Also noted are multiple subacute right rib fractures on chest CT. - Hx of Parkinsons disease and follows with Dr. Lester - continue on sinemet - Fall precautions - hx of multiples falls likely secondary to Parkinson progression, BPH with frequent bathroom trips increasing likelihood of falls - PT/OT consults - pt would likely benefit from short term inpatient stay - Ortho consulted - likely nonoperable but would appreciate mobility and weight bearing recs Per ortho: WBAT with walker, progressing as tolerated. PT/OT Continue pain control and DVT prophylaxis per primary service. D/C planning - plan to Dc to [facility] Follow up as outpatient in 2 weeks with repeat x-rays AP pelvis, Inlet and Outlet views. - Continue pain control with [id number] Tylenol, tramadol prn, bowel regimen with constipation seen on imaging, patient was not using any other pain medicine at home. Consider iv meds for breakthrough pain but currently does not need 07/03 - pt had bowel movement this AM, continue bowel regimen - BMI of 19, ordered nutritional assessment while inpatient (5) Enlarged prostate: - Hx of such, has recently been prescribed proscar by Dr. Sepulveda with urology, however pt is not taking due to possible adverse reactions/side effects. He did take the medication for a few months but stopped in April. He denies worsening urinary symptoms - UA negat. on admission Total Time Total Time Spent Total Time Spent (In Minutes): 40 Discharge Plan Discharge Items Patient Disposition: Transfer Inpatient Rehab Fac Reason For Visit: R PELVIS FRACTURES, FALL Discharge Diagnosis: Fall, pelvic fracture, history of Parkinson's Condition on Discharge: Good Activity: Per Instructions section Non-emergency contact: Primary Care Provider Call non-emergency contact if: you have any medication questions and your symptoms worsen Follow-up/Referrals: Delon Lazo MD [Physician] - 07/15/22 1:00 pm Murray Vasquez DO [Primary Care Provider] - Diet: Regular Diet Texture: Easy to Chew Haylietl Attending Provider Instructions: Please read recommendations from orthopedic surgeon, as below. Plan to follow- up in his office in 2 weeks. Take Tylenol for pain, 1000 mg every 8 hours. You can take tramadol for more severe pain. Addtl Printed Forms Proofreader Provider Instructions: Weight bear as tolerated left and right lower extremities Full range of motion as tolerated bilateral lower extremities. Ice to right hip PRN pain/swelling. Use walker to assist with ambulation. Follow up as scheduled with Dr. Lazo, call [phone] with any increased pain, swelling, deformity, concerns or need to reschedule appointment. Pending Studies at Discharge: No Stand-Alone Forms: My [facility] Skilled Items Patient informed of condition?: Yes DNR: No Discharge Level of Care: Acute rehab Communicable Disease: No Discharge Prognosis: Stable Lines: None Urinary Catheter: No Medications and DC Order Prescriptions: New acetaminophen [Tylenol Extra Strength] 500 mg Tablet 1,000 mg PO TID 4 Days Qty: 24 0RF tramadol 50 mg Tablet 50 mg PO Q4H PRN (Reason: pain) 4 Days Qty: 10 0RF bisacodyl [Gentle Laxative (bisacodyl)] 5 mg Tablet,Delayed Release (Dr/Ec) 5 mg PO DAILY 14 Days Qty: 14 0RF polyethylene glycol 3350 [Miralax] 17 gram Powder In Packet 17 g PO DAILY Qty: 14 0RF Continued cholecalciferol (vitamin D3) [Vitamin D3] 1,000 unit Capsule 1,000 unit PO QAM zinc acetate 25 mg (zinc) Capsule 25 mg PO 3XWK ascorbic acid (vitamin C) [Vitamin C] 500 mg Tablet 500 mg PO 4XWK carbidopa-levodopa 25-100 mg tablet See Rx Instructions .ROUTE .COMPLEX Rx Instructions: Take 2 tabs at breakfast, 2 tabs at lunch and 1 tab at supper. Discharge Orders: Discharge Order (Routine); Ordered 07/03/22 Ordered By: Tom Roque Admission Data Admit Date/Time: 07/01/22 14:15 Attending Provider: Tom Roque Admit Provider: Alisha Cobb Primary Care Provider: Murray Vasquez Other Providers: Alisha Cobb ; Delon Lazo ; [facility]
[2022-07-03] MEDS: traMADol HCL 50 MG TABLET PO PRN (15:12)
== END 2022-07-03 17:25 | DRG 536 ==
LOC: ED 11:10 → 3W 14:15 → SUATTDRO 14:15 → 3W 14:50

== ENCOUNTER 2022-10-16 04:20 | Inpatient (IN) ==
--- NOTE | 2022-10-16 04:37 | Emergency Department Note ---
History of Present Illness General Chief complaint: Altered Mental Status Stated complaint: AMS, Weakness, Painful Urination Time Seen by Provider: 10/16/22 04:24 History of Present Illness Maximum Pain Intensity: 8 81-year-old male presents via EMS has a 1 day history of generalized weakness he states he believes he has a urinary tract infection. Reportedly he had slight increased confusion. Patient denies nausea vomiting diarrhea or abdominal pain. Patient states to me that he feels generally weak. He has no other complaints no chest pain or shortness of breath. Patient does have a prior history of urinary tract infections. Patient also wears a condom catheter at night due to urinary symptoms. Per the family at bedside this evening the condom catheter was reportedly kinked. Home Medications Medication Instructions Recorded Confirmed Type cholecalciferol (vitamin D3) 25 1,000 unit PO QAM 05/19/19 07/01/22 History mcg (1,000 unit) capsule (Vitamin D3) ascorbic acid (vitamin C) 500 mg 500 mg PO 4XWK 07/01/22 07/01/22 History tablet (Vitamin C) carbidopa 25 mg-levodopa 100 mg See Rx Instructions .Route .COMPLEX 07/01/22 07/01/22 History tablet zinc acetate 25 mg (zinc) capsule 25 mg PO 3XWK 07/01/22 07/01/22 History polyethylene glycol 3350 17 gram 17 g PO DAILY #14 ea 07/03/22 Rx oral powder packet (Miralax) Allergies Allergy/AdvReac Type Severity Reaction Status Date / Time doxycycline Allergy Intermediate HOARSENESS,THROAT Verified 07/01/22 13:36 GOT TIGHT grass pollen-perennial rye, Allergy Intermediate CONGESTION, Verified 07/01/22 13:36 standar ITCHY EYES, SNEEZING pollen extracts Allergy Intermediate CONGESTION, Verified 07/01/22 13:36 ITCHY EYES, SNEEZING Sulfa (Sulfonamide Allergy Intermediate Unknown Verified 07/01/22 13:36 Antibiotics) Dust Allergy Intermediate CONGESTION, Uncoded 07/01/22 13:36 ITCHY EYES, SNEEZING Past Med/Surg History Medical History Cardiac murmur Echo 01/2019 = Mild MR and aortic sclerosis without stenosis. 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 Christian 02/11/17 Hx of cataract surgery bilateral Hx of inguinal hernia surgery (07/12/19) Right Open Inguinal Hernia Repair with Mesh Dr. Amado 07-12-19 Status post Mohs surgery Family History Mother Cancer Hypertension Father Heart disease Sister Stroke Other Family history non-contributory No family history of adverse response to anesthesia Social History Smoking Status: Unknown if ever smoked Second Hand Exposure: No; Hx Alcohol Use: No Hx Substance Use: No Preferred Language: Ethiopian Communication Ability: Effective Exterminator Termite Required: No Beliefs That Will Affect Care: None marital status: Current Living Situation: Spouse current occupational status: retired current occupation: Retired Teacher Feels Safe at Home: Yes Assistive Devices: Bedside Commode and Walker Review of Systems A total of 10 systems reviewed and were otherwise negative Constitutional: + weakness; no fever Genitourinary (Male): + urinary frequency and + urinary hesitancy Physical Exam Vital Signs Vital Signs - 24 hr 10/16/22 04:23 10/16/22 04:26 10/16/22 04:31 Temperature 37.0 C Temperature Source Oral Pulse Rate 82 79 Pulse Rate [Finger] Pulse Rhythm Pulse Rhythm [Finger] Pulse Strength [Finger] Respiratory Rate 18 Respiratory Effort / Characteristics Non-Labored Respiratory Depth Normal Respiratory Pattern Regular Blood Pressure 153/90 H Blood Pressure [Right Arm] Blood Pressure Mean 111 Blood Pressure Mean [Right Arm] Blood Pressure Position [Right Arm] Pulse Oximetry 95 95 Oxygen Delivery Method Room Air Sepsis Recent Fever Within 48 Hours No Sepsis New/Unexplained Change in Mental Status Yes Sepsis Action Taken by Nursing No Action Required 10/16/22 04:36 10/16/22 05:16 10/16/22 06:07 Temperature Temperature Source Pulse Rate 77 Pulse Rate [Finger] 79 71 Pulse Rhythm Regular Pulse Rhythm [Finger] Regular Regular Pulse Strength [Finger] Normal Normal Respiratory Rate 18 18 18 Respiratory Effort / Characteristics Non-Labored Non-Labored Respiratory Depth Normal Normal Respiratory Pattern Regular Regular Blood Pressure Blood Pressure [Right Arm] 136/79 133/78 Blood Pressure Mean Blood Pressure Mean [Right Arm] 98 96 Blood Pressure Position [Right Arm] Sitting Pulse Oximetry 96 95 94 Oxygen Delivery Method Room Air Room Air Sepsis Recent Fever Within 48 Hours Sepsis New/Unexplained Change in Mental Status Sepsis Action Taken by Nursing GENERAL: Patient is awake alert in no acute distress; cachectic, ill-appearing EYES: The conjunctivae are clear. The pupils are round and reactive. EARS, NOSE, MOUTH AND THROAT: The nose is without any evidence of any deformity. Mucous membranes are moist. Tongue is midline. NECK: The neck is nontender and supple. RESPIRATORY: Normal respiratory effort is noted there is no evidence of wheezing rhonchi or rales CARDIOVASCULAR: Regular rate and rhythm noted there no murmurs rubs or gallops normal S1 normal S2. GASTROINTESTINAL: The abdomen is soft. Abdomen is nontender. BACK: Full range of motion MUSCULOSKELETAL/EXTREMITIES: There is no evidence of gross deformity; patient has symmetric weakness in the legs SKIN: There is no obvious evidence of any rash. There are no petechiae, pallor or cyanosis noted. NEUROLOGIC: Patient is awake alert and oriented x3; patient has symmetric weakness in the legs Course Reevaluation(s) Reevaluation #1: Patient was started on IV fluids, Rocephin, the case was discussed with the patient the patient's daughter at bedside at 6:05 AM Time: 06:05 Consultations Consultation #1: [facility] Time: 06:16 Administered Medications Sodium Chloride (Nss 1000ml) 1,000 mls @ 999 mls/hr IV .Q1H1M ONE Stop: 10/16/22 06:38 Last Admin: 10/16/22 05:53 Dose: 999 mls/hr Documented By: BENEDICT Discontinued Medications Ceftriaxone Sodium (Rocephin) 2,000 mg in 70 mls @ 140 mls/hr IV NOW STA Stop: 10/16/22 06:09 Last Admin: 10/16/22 05:50 Dose: 140 mls/hr Documented By: BENEDICT Potassium Chloride (Potassium Chloride 10 Meq Tabcr) 40 meq PO NOW STA Stop: 10/16/22 05:41 Last Admin: 10/16/22 05:55 Dose: 40 meq Documented By: BENEDICT Medical Decision Making Medical Records Attestation: I reviewed the patient's medical records. Home Medications Current Medication List: was personally reviewed by me Laboratory Data Attestation: I reviewed the patient's lab results. Patient has leukocytosis, mild hypokalemia, elevated BUN 10/16/22 04:42 10/16/22 04:42 Lab Results 10/16/22 10/16/22 10/16/22 Range/Units 04:42 04:42 04:42 WBC 17.40 H (4.8-10.8) K/ul RBC 3.52 L (4.70-6.10) M/uL Hgb 11.7 L (14.0-18.0) g/dl Hct 33.9 L (42.0-52.0) % MCV 96.3 (80.0-100.0) fL MCH 33.2 (25.0-34.0) pg MCHC 34.5 (32.0-36.0) g/dL RDW Std Deviation 44.3 (36.4-46.3) fL RDW Coeff of Olena 12.7 (11.5-14.5) % Plt Count 173 (130-400) K/uL MPV 12.4 (9.4-12.4) fL Immature Gran % (Auto) 0.5 % Neut % (Auto) 90.6 % Lymph % (Auto) 1.8 % [place] % (Auto) 6.9 % Eos % (Auto) 0.0 % Baso % (Auto) 0.2 % Neut # (Auto) 15.76 H (1.40-6.50) K/uL Lymph # (Auto) 0.32 L (1.2-3.4) K/uL [place] # (Auto) 1.20 H (0.11-0.59) K/uL Eos # (Auto) 0.00 (0-0.50) K/uL Baso # (Auto) 0.03 (0-0.2) K/uL Immature Gran # (Auto) 0.09 (0.01-0.20) K/uL RBC Morphology Unremarkable Sodium 133 L (136-145) mmol/L Potassium 3.2 L (3.5-5.1) mmol/L Chloride 101 (98-107) mmol/L Carbon Dioxide 24 (21-32) mmol/L Anion Gap 8 (3-11) BUN 27 H (6-23) mg/dl Creatinine 0.76 (0.6-1.4) mg/dl Est Cr Clr Drug Dosing 73.5 ml/min Est GFR ( Amer) 100.6 ml/min Est GFR (Non-Af Amer) 86.8 ml/min BUN/Creatinine Ratio 35.5 H (10-20) Glucose 139 H (70-99(Fasting)) mg/dl POC Glucose (70-99) mg/dl Lactate 0.9 (0.4-2.0) mmol/L Calcium 8.3 L (8.6-10.3) mg/dl Magnesium 1.8 (1.7-2.4) mg/dl Total Bilirubin 0.8 (0.2-1.0) mg/dl Direct Bilirubin 0.1 (0-0.2) mg/dl AST 19 (13-39) U/L ALT 8 (7-52) U/L Alkaline Phosphatase 126 H (34-104) U/L Troponin I High Sens 9.4 (0-20) pg/ml Total Protein 6.8 (6.0-8.3) gm/dl Albumin 3.7 (3.4-5.0) gm/dl Procalcitonin (0-0.5) ng/ml Urine Color Urine Appearance (Clear) Urine pH (4.5-7.5) Ur Specific [place] (1.000-1.030) Urine Protein (Negative) Urine Glucose (UA) (Negative) Urine Ketones (Negative) Urine Blood (Negative) Urine Nitrite (Negative) Urine Bilirubin (Negative) Urine Urobilinogen (Negative) Ur Leukocyte Esterase (Negative) Urine WBC (Auto) (0-5) /hpf Urine RBC (Auto) (0-4) /hpf U Hyaline Cast (Auto) (0-5) /lpf U Epithel Cells (Auto) (0-5) /lpf Urine Bacteria (Auto) (Negative) SARS-CoV-2, RNA, NAAT (NEGATIVE) 10/16/22 10/16/22 10/16/22 Range/Units 04:42 04:42 04:42 WBC (4.8-10.8) K/ul RBC (4.70-6.10) M/uL Hgb (14.0-18.0) g/dl Hct (42.0-52.0) % MCV (80.0-100.0) fL MCH (25.0-34.0) pg MCHC (32.0-36.0) g/dL RDW Std Deviation (36.4-46.3) fL RDW Coeff of Olena (11.5-14.5) % Plt Count (130-400) K/uL MPV (9.4-12.4) fL Immature Gran % (Auto) % Neut % (Auto) % Lymph % (Auto) % [place] % (Auto) % Eos % (Auto) % Baso % (Auto) % Neut # (Auto) (1.40-6.50) K/uL Lymph # (Auto) (1.2-3.4) K/uL [place] # (Auto) (0.11-0.59) K/uL Eos # (Auto) (0-0.50) K/uL Baso # (Auto) (0-0.2) K/uL Immature Gran # (Auto) (0.01-0.20) K/uL RBC Morphology Sodium (136-145) mmol/L Potassium (3.5-5.1) mmol/L Chloride (98-107) mmol/L Carbon Dioxide (21-32) mmol/L Anion Gap (3-11) BUN (6-23) mg/dl Creatinine (0.6-1.4) mg/dl Est Cr Clr Drug Dosing ml/min Est GFR ( Amer) ml/min Est GFR (Non-Af Amer) ml/min BUN/Creatinine Ratio (10-20) Glucose (70-99(Fasting)) mg/dl POC Glucose (70-99) mg/dl Lactate (0.4-2.0) mmol/L Calcium (8.6-10.3) mg/dl Magnesium (1.7-2.4) mg/dl Total Bilirubin (0.2-1.0) mg/dl Direct Bilirubin (0-0.2) mg/dl AST (13-39) U/L ALT (7-52) U/L Alkaline Phosphatase (34-104) U/L Troponin I High Sens (0-20) pg/ml Total Protein (6.0-8.3) gm/dl Albumin (3.4-5.0) gm/dl Procalcitonin < 0.05 (0-0.5) ng/ml Urine Color Yellow Urine Appearance Cloudy A (Clear) Urine pH 6.0 (4.5-7.5) Ur Specific [place] 1.019 (1.000-1.030) Urine Protein 1+ H (Negative) Urine Glucose (UA) Negative (Negative) Urine Ketones Trace H (Negative) Urine Blood 3+ H (Negative) Urine Nitrite Positive A (Negative) Urine Bilirubin Negative (Negative) Urine Urobilinogen Negative (Negative) Ur Leukocyte Esterase 1+ H (Negative) Urine WBC (Auto) >30 H (0-5) /hpf Urine RBC (Auto) >30 H (0-4) /hpf U Hyaline Cast (Auto) 1-5 (0-5) /lpf U Epithel Cells (Auto) 0-5 (0-5) /lpf Urine Bacteria (Auto) 4+ H (Negative) SARS-CoV-2, RNA, NAAT NEGATIVE (NEGATIVE) 10/16/22 Range/Units 05:14 WBC (4.8-10.8) K/ul RBC (4.70-6.10) M/uL Hgb (14.0-18.0) g/dl Hct (42.0-52.0) % MCV (80.0-100.0) fL MCH (25.0-34.0) pg MCHC (32.0-36.0) g/dL RDW Std Deviation (36.4-46.3) fL RDW Coeff of Olena (11.5-14.5) % Plt Count (130-400) K/uL MPV (9.4-12.4) fL Immature Gran % (Auto) % Neut % (Auto) % Lymph % (Auto) % [place] % (Auto) % Eos % (Auto) % Baso % (Auto) % Neut # (Auto) (1.40-6.50) K/uL Lymph # (Auto) (1.2-3.4) K/uL [place] # (Auto) (0.11-0.59) K/uL Eos # (Auto) (0-0.50) K/uL Baso # (Auto) (0-0.2) K/uL Immature Gran # (Auto) (0.01-0.20) K/uL RBC Morphology Sodium (136-145) mmol/L Potassium (3.5-5.1) mmol/L Chloride (98-107) mmol/L Carbon Dioxide (21-32) mmol/L Anion Gap (3-11) BUN (6-23) mg/dl Creatinine (0.6-1.4) mg/dl Est Cr Clr Drug Dosing ml/min Est GFR ( Amer) ml/min Est GFR (Non-Af Amer) ml/min BUN/Creatinine Ratio (10-20) Glucose (70-99(Fasting)) mg/dl POC Glucose 129 H (70-99) mg/dl Lactate (0.4-2.0) mmol/L Calcium (8.6-10.3) mg/dl Magnesium (1.7-2.4) mg/dl Total Bilirubin (0.2-1.0) mg/dl Direct Bilirubin (0-0.2) mg/dl AST (13-39) U/L ALT (7-52) U/L Alkaline Phosphatase (34-104) U/L Troponin I High Sens (0-20) pg/ml Total Protein (6.0-8.3) gm/dl Albumin (3.4-5.0) gm/dl Procalcitonin (0-0.5) ng/ml Urine Color Urine Appearance (Clear) Urine pH (4.5-7.5) Ur Specific [place] (1.000-1.030) Urine Protein (Negative) Urine Glucose (UA) (Negative) Urine Ketones (Negative) Urine Blood (Negative) Urine Nitrite (Negative) Urine Bilirubin (Negative) Urine Urobilinogen (Negative) Ur Leukocyte Esterase (Negative) Urine WBC (Auto) (0-5) /hpf Urine RBC (Auto) (0-4) /hpf U Hyaline Cast (Auto) (0-5) /lpf U Epithel Cells (Auto) (0-5) /lpf Urine Bacteria (Auto) (Negative) SARS-CoV-2, RNA, NAAT (NEGATIVE) Imaging Data Attestation: I personally reviewed and interpreted this imaging study as follows: My Impression: Chest x-ray interpreted by me negative for infiltrate ECG Data Attestation: I personally reviewed and interpreted this ECG as follows: Additional Comments: EKG interpreted by me normal sinus rhythm rate of 80 first-degree AV block left anterior hemiblock no obvious ST segment elevation or depression Telemetry was ordered by me, interpreted as normal sinus rhythm rate of 72 MDM Narrative Medical decision making differential diagnosis includes sepsis, urinary tract infection, electrolyte abnormality, deconditioning, dehydration Plan is to check sepsis labs External medical records were reviewed by me EMS gave bedside report to me Patient was started on IV antibiotics, patient has an elevated white blood cell count, has a normal lactate. Has a urine that is positive for urinary tract infection. Patient is being treated with IV antibiotics. I do not suspect at t he time of admission the patient to be in septic shock. Patient was given 1 L of fluid in the emergency department. Patient will be admitted for urinary tract infection, weakness Impression & Plan Weakness, Leukocytosis, Acute UTI (urinary tract infection) Discharge Plan Visit Data Chief Complaint: Altered Mental Status Stated Complaint: AMS, Weakness, Painful Urination ED Provider: Milton Damon Discharge Problem: Weakness, Leukocytosis, Acute UTI (urinary tract infection) Patient Disposition: Admitted As Inpatient Forms Stand Alone Forms: My [facility] Prescriptions Prescriptions: No Action cholecalciferol (vitamin D3) [Vitamin D3] 1,000 unit Capsule 1,000 unit PO QAM zinc acetate 25 mg (zinc) Capsule 25 mg PO 3XWK ascorbic acid (vitamin C) [Vitamin C] 500 mg Tablet 500 mg PO 4XWK carbidopa-levodopa 25-100 mg tablet See Rx Instructions .ROUTE .COMPLEX Rx Instructions: Take 2 tabs at breakfast, 2 tabs at lunch and 1 tab at supper. polyethylene glycol 3350 [Miralax] 17 gram Powder In Packet 17 g PO DAILY Qty: 14 0RF Referrals Referrals: Murray Vasquez DO [Primary Care Provider] -
[2022-10-16 05:11] LABS: Hematocrit (blood only) 33.9 % (42.0-52.0); Hemoglobin 11.7 g/dl (14.0-18.0); Mean Corpuscular Hemoglobin 33.2 pg (25.0-34.0); Mean Corpuscular Hgb Conc 34.5 g/dL (32.0-36.0); Mean Corpuscular Volume 96.3 fL (80.0-100.0); Mean Platelet Volume 12.4 fL (9.4-12.4); Platelet Count 173 K/uL (130-400); RDW Coefficient of Variation 12.7 % (11.5-14.5); RDW Standard Deviation 44.3 fL (36.4-46.3); Red Blood Count 3.52 M/uL (4.70-6.10)
[2022-10-16 05:15] LABS: Appearance Urine Cloudy (Clear); Bacteria Urine Automated 4+ (Negative); Bilirubin Urine Negative (Negative); Blood Urine 3+ (Negative); Color Urine Yellow; Epithelial Cell Urine Auto 0-5 /lpf (0-5); Glucose Urine UA Negative (Negative); Ketones Urine Trace (Negative); Leukocyte Esterase Urine 1+ (Negative); Nitrite Urine Positive (Negative); Protein Urine 1+ (Negative); RBC Urine Automated >30 /hpf (0-4); Specific Gravity Urine 1.019 (1.000-1.030); Urobilinogen Urine Negative (Negative); WBC Urine Automated >30 /hpf (0-5)
[2022-10-16 05:23] LABS: Albumin Level 3.7 gm/dl (3.4-5.0); BUN Creatinine Ratio 35.5 (10-20); Bilirubin Direct 0.1 mg/dl (0-0.2); Bilirubin,Total 0.8 mg/dl (0.2-1.0); Calcium 8.3 mg/dl (8.6-10.3); Creatinine Clr Calc Pharmacy 73.5 ml/min; Est GFR (African American) 100.6 ml/min; Est GFR (Non-African American) 86.8 ml/min; Magnesium 1.8 mg/dl (1.7-2.4); Potassium 3.2 mmol/L (3.5-5.1); Total Protein 6.8 gm/dl (6.0-8.3)
[2022-10-16 05:28] LABS: Troponin I High Sensitivity 9.4 pg/ml (0-20)
[2022-10-16] MEDS ORDERED: SODIUM CHLORIDE 0.9% 1000ML 1,000 ML IV ONE (05:38)
[2022-10-16 05:40] LABS: Basophils # (auto) 0.03 K/uL (0-0.2); Basophils % (auto) 0.2 %; Immature Granulocytes # (auto) 0.09 K/uL (0.01-0.20); Immature Granulocytes % (auto) 0.5 %; Lymphocytes # (auto) 0.32 K/uL (1.2-3.4); Lymphocytes % (auto) 1.8 %; Monocytes % (auto) 6.9 %; Neutrophils # (auto) 15.76 K/uL (1.40-6.50); Neutrophils % (auto) 90.6 %; RBC Morphology Unremarkable
[2022-10-16] MEDS ORDERED: cefTRIAXone SODIUM 2,000 MG/70 ML BAG IV STA (05:40)
[2022-10-16] MEDS ORDERED: POTASSIUM CHLORIDE 10 MEQ TABCR PO STA (05:40)
[2022-10-16] MEDS ORDERED: NSS + 20MEQ KCL 20 MEQ/1,000 ML BAG IV STA (06:12)
[2022-10-16] MEDS ORDERED: CEFEPIME 2,000 MG/20 ML VIAL IV STA (06:45)
--- NOTE | 2022-10-16 07:03 | History & Physical Report ---
Date of Service October 16, 2022 Assessment & Plan (1) Sepsis: Plan: Secondary To complicated UTI History of BPH Rule out kidney stones given abdominal pain, nausea vomiting symptoms PVD, history renal vein stent valvular heart disease (mild MR) Parkinson's disease, some slowness likely secondary to infection chronic anemia, hemoglobin at baseline Hypokalemia secondary to emesis Hyperglycemia rule out DM Malnutrition, low BMI Medical telemetry CS, Cefepime CT abdomen pelvis Re: Abdominal pain, nausea vomiting N.p.o. until CT results known Recheck potassium after replacement given at the ER check hemoglobin A1c Dietitian consult Re: Low BMI PT OT eval once medically stable DVT prophylaxis. Heparin subcu Full code Patient daughter requesting updates from providers. Ms. Brigid Arboleda, contact #[phone]. Text document was generated using [employer] voice recognition software. It may contain grammatical or spelling errors. Kindly contact undersigned for clarification of any documentation item in question. History of Present Illness Chief Complaint: Fever, weakness, abdominal pain, nausea vomiting Primary Care Provider: Murray Vasquez DO History obtained from patient, family, and records. Medical history significant for PVD, valvular heart disease (mild MR), Parkinson's disease, BPH, chronic back pain, chronic anemia (baseline hemoglobin 11-12). Last confinement June 2022 for rib and pelvic fractures secondary to fall. Patient not feeling well the last few days. Somewhat weaker than usual. Patient noted increase urinary frequency. Urinary retention noted early a.m. by family. Possible condom cath blockage as per daughter. Temperature of 106 at home. Patient somewhat slower than usual. Patient with abdominal pain, nausea, vomiting symptoms. Some back pain. No hematuria noted at home. No headache. IV ceftriaxone administered at the ER. Medical History as above Surgical History : Hernia repair, skin cancer surgery, vascular procedure, bilateral cataract surgeries, Family History : Heart disease, stroke Personal/Social history : Non-smoker, no EtOH intake, retired schoolteacher Allergies Allergy/AdvReac Type Severity Reaction Status Date / Time doxycycline Allergy Intermediate HOARSENESS,THROAT Verified 07/01/22 13:36 GOT TIGHT grass pollen-perennial rye, Allergy Intermediate CONGESTION, Verified 07/01/22 13:36 standar ITCHY EYES, SNEEZING pollen extracts Allergy Intermediate CONGESTION, Verified 07/01/22 13:36 ITCHY EYES, SNEEZING Sulfa (Sulfonamide Allergy Intermediate Unknown Verified 07/01/22 13:36 Antibiotics) Home Medications Medication Instructions Recorded Confirmed Type cholecalciferol (vitamin D3) 25 1,000 unit PO QAM 05/19/19 07/01/22 History mcg (1,000 unit) capsule (Vitamin D3) ascorbic acid (vitamin C) 500 mg 500 mg PO 4XWK 07/01/22 07/01/22 History tablet (Vitamin C) carbidopa 25 mg-levodopa 100 mg See Rx Instructions .Route .COMPLEX 07/01/22 07/01/22 History tablet zinc acetate 25 mg (zinc) capsule 25 mg PO 3XWK 07/01/22 07/01/22 History Past Med/Surg History Medical History Cardiac murmur Echo 01/2019 = Mild MR and aortic sclerosis without stenosis. 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 Christian 02/11/17 Hx of cataract surgery bilateral Hx of inguinal hernia surgery (07/12/19) Right Open Inguinal Hernia Repair with Mesh Dr. Amado 07-12-19 Status post Mohs surgery Family History Mother Cancer Hypertension Father Heart disease Sister Stroke Other Family history non-contributory No family history of adverse response to anesthesia Social History Smoking Status: Unknown if ever smoked Second Hand Exposure: No; Hx Alcohol Use: No Hx Substance Use: No Preferred Language: Lithuanian Communication Ability: Effective Ski Technician Required: No Beliefs That Will Affect Care: None marital status: Current Living Situation: Spouse current occupational status: retired current occupation: Retired Teacher Feels Safe at Home: Yes Assistive Devices: Bedside Commode and Walker Review of Systems Review of Systems: As per HPI, all other systems reviewed and negative Physical Exam Physical Exam: GENERAL: Comfortable, mild dysarthria (chronic as per family), underweight, no respiratory distress SKIN: Pallor, warm HEENT: Pale palpebral conjunctivae, no ptosis, dry buccal mucosa NECK : Supple, no tenderness CHEST : CTA, no tenderness HEART : RRR, no obvious murmurs ABDOMEN: Some distention, nontender EXTREMITIES : No LE swelling/tenderness, no other conspicuous deformities noted NEUROLOGIC : Coherent, no facial asymmetry, mild dysarthria, gait and stance not assessed Results & Data Results & Data Vital Signs (Past 12 Hours) Vital Signs Temp Pulse Pulse Resp BP BP Pulse Ox 10/16/22 06:07 71 18 133/78 94 10/16/22 05:16 77 18 95 10/16/22 04:36 79 18 136/79 96 10/16/22 04:31 95 10/16/22 04:26 79 10/16/22 04:23 37.0 C 82 18 153/90 H 95 O2 Del Method 10/16/22 06:07 Room Air 10/16/22 05:16 Room Air 10/16/22 04:36 10/16/22 04:31 Room Air 10/16/22 04:26 10/16/22 04:23 Laboratory Results Laboratory Results WBC 17.40 K/ul (4.8-10.8) H 10/16/22 04:42 RBC 3.52 M/uL (4.70-6.10) L 10/16/22 04:42 Hgb 11.7 g/dl (14.0-18.0) L 10/16/22 04:42 Hct 33.9 % (42.0-52.0) L 10/16/22 04:42 MCV 96.3 fL (80.0-100.0) 10/16/22 04:42 MCH 33.2 pg (25.0-34.0) 10/16/22 04:42 MCHC 34.5 g/dL (32.0-36.0) 10/16/22 04:42 RDW Std Deviation 44.3 fL (36.4-46.3) 10/16/22 04:42 RDW Coeff of Olena 12.7 % (11.5-14.5) 10/16/22 04:42 Plt Count 173 K/uL (130-400) 10/16/22 04:42 MPV 12.4 fL (9.4-12.4) 10/16/22 04:42 Immature Gran % (Auto) 0.5 % 10/16/22 04:42 Neut % (Auto) 90.6 % 10/16/22 04:42 Lymph % (Auto) 1.8 % 10/16/22 04:42 [place] % (Auto) 6.9 % 10/16/22 04:42 Eos % (Auto) 0.0 % 10/16/22 04:42 Baso % (Auto) 0.2 % 10/16/22 04:42 Neut # (Auto) 15.76 K/uL (1.40-6.50) H 10/16/22 04:42 Lymph # (Auto) 0.32 K/uL (1.2-3.4) L 10/16/22 04:42 [place] # (Auto) 1.20 K/uL (0.11-0.59) H 10/16/22 04:42 Eos # (Auto) 0.00 K/uL (0-0.50) 10/16/22 04:42 Baso # (Auto) 0.03 K/uL (0-0.2) 10/16/22 04:42 Immature Gran # (Auto) 0.09 K/uL (0.01-0.20) 10/16/22 04:42 RBC Morphology Unremarkable 10/16/22 04:42 Sodium 133 mmol/L (136-145) L 10/16/22 04:42 Potassium 3.2 mmol/L (3.5-5.1) L 10/16/22 04:42 Chloride 101 mmol/L (98-107) 10/16/22 04:42 Carbon Dioxide 24 mmol/L (21-32) 10/16/22 04:42 Anion Gap 8 (3-11) 10/16/22 04:42 BUN 27 mg/dl (6-23) H 10/16/22 04:42 Creatinine 0.76 mg/dl (0.6-1.4) 10/16/22 04:42 Est Cr Clr Drug Dosing 73.5 ml/min 10/16/22 04:42 Est GFR ( Amer) 100.6 ml/min 10/16/22 04:42 Est GFR (Non-Af Amer) 86.8 ml/min 10/16/22 04:42 BUN/Creatinine Ratio 35.5 (10-20) H 10/16/22 04:42 Glucose 139 mg/dl (70-99(Fasting)) H 10/16/22 04:42 POC Glucose 129 mg/dl (70-99) H 10/16/22 05:14 Lactate 0.9 mmol/L (0.4-2.0) 10/16/22 04:42 Calcium 8.3 mg/dl (8.6-10.3) L 10/16/22 04:42 Magnesium 1.8 mg/dl (1.7-2.4) 10/16/22 04:42 Total Bilirubin 0.8 mg/dl (0.2-1.0) 10/16/22 04:42 Direct Bilirubin 0.1 mg/dl (0-0.2) 10/16/22 04:42 AST 19 U/L (13-39) 10/16/22 04:42 ALT 8 U/L (7-52) 10/16/22 04:42 Alkaline Phosphatase 126 U/L (34-104) H 10/16/22 04:42 Troponin I High Sens 9.4 pg/ml (0-20) 10/16/22 04:42 Total Protein 6.8 gm/dl (6.0-8.3) 10/16/22 04:42 Albumin 3.7 gm/dl (3.4-5.0) 10/16/22 04:42 Procalcitonin < 0.05 ng/ml (0-0.5) 10/16/22 04:42 Urine Color Yellow 10/16/22 04:42 Urine Appearance Cloudy (Clear) A 10/16/22 04:42 Urine pH 6.0 (4.5-7.5) 10/16/22 04:42 Ur Specific [place] 1.019 (1.000-1.030) 10/16/22 04:42 Urine Protein 1+ (Negative) H 10/16/22 04:42 Urine Glucose (UA) Negative (Negative) 10/16/22 04:42 Urine Ketones Trace (Negative) H 10/16/22 04:42 Urine Blood 3+ (Negative) H 10/16/22 04:42 Urine Nitrite Positive (Negative) A 10/16/22 04:42 Urine Bilirubin Negative (Negative) 10/16/22 04:42 Urine Urobilinogen Negative (Negative) 10/16/22 04:42 Ur Leukocyte Esterase 1+ (Negative) H 10/16/22 04:42 Urine WBC (Auto) >30 /hpf (0-5) H 10/16/22 04:42 Urine RBC (Auto) >30 /hpf (0-4) H 10/16/22 04:42 U Hyaline Cast (Auto) 1-5 /lpf (0-5) 10/16/22 04:42 U Epithel Cells (Auto) 0-5 /lpf (0-5) 10/16/22 04:42 Urine Bacteria (Auto) 4+ (Negative) H 10/16/22 04:42 SARS-CoV-2, RNA, NAAT NEGATIVE (NEGATIVE) 10/16/22 04:42 Diagnostic Findings Chest x-ray as per my interpretation atelectasis, borderline cardiomegaly EKG as per my interpretation : Rate 80, NSR, LAD, LAFB, RBBB, septal infarct, T wave abnormalities inferior leads Code Status & VTE Plan VTE Prophylaxis Plan VTE Prophylaxis will be ordered: Yes
--- NOTE | 2022-10-16 07:23 | XRay Report ---
XR chest 1V portable CLINICAL HISTORY: Sepsis. COMPARISON STUDY: Chest radiograph and chest CT July 01, 2022. FINDINGS: Lung volumes are normal. There is no consolidation to suggest pneumonia. Linear right midlu ng density represents atelectasis or scarring. Linear density within the left lung base favors atelec tasis. There is no pneumothorax or pleural effusion. Cardiomegaly is unchanged. Mediastinal contours are normal. There is no evidence for pulmonary edema. IMPRESSION: No acute cardiopulmonary findings. No change in appearance of the chest. ACT 112: Negative or not required by law. Electronically signed by: Mane Donovan M.D. 10/16/2022 7:22 AM
[2022-10-16] MEDS ORDERED: OPTIRAY 350 100ml IV ONE (07:33)
[2022-10-16 07:51] LABS: Estimated Average Glucose 120 mg/dl; Hemoglobin A1C 5.8 % (4.5-5.6)
--- NOTE | 2022-10-16 08:05 | CT Scan Report ---
CT OF THE ABDOMEN AND PELVIS WITH CONTRAST CLINICAL HISTORY: Abdominal pain, nausea and vomiting. COMPARISON STUDY: CT of the abdomen and pelvis July 01, 2022. TECHNIQUE: Following IV administration of 94 mL of Optiray, axial images of the abdomen and pelvis we re obtained from the lung bases to the proximal femurs. Images were reviewed in the axial, sagittal, and coronal planes. IV contrast was administered without complication. Automated exposure control wa s utilized for the study. A dose lowering technique was utilized adhering to the principles of ALARA . CT DOSE: 266.18 mGy.cm FINDINGS: No pneumatosis, free air or portal venous gas is present. Subpleural opacities within the l ower lungs represent atelectasis. The liver, spleen, adrenal glands and pancreas are unremarkable. Th ere is no biliary or pancreatic ductal dilatation. Water attenuation bilateral renal lesions reflect cysts. There is no hydronephrosis. A patent left renal vein stent is noted. A moderate amount of stoo l within the colon and rectum is present. There is no evidence for a bowel obstruction. There is poss ible visualization of a normal appendix on axial image 290 of 436. Note is made of nonspecific right abdominal mesenteric inflammation. No fluid collection is present. There is trace fluid within the ri ght lower quadrant as well. No fluid collection is identified. There is no lymphadenopathy. The prost ate is enlarged, measuring 6 cm in transverse dimension. There is asymmetric right lateral bladder wa ll thickening. Healing right pubic ring fractures are noted. There are also healing bilateral sacral ala fractures. IMPRESSION: 1. Right abdominal mesenteric edema and stranding. This represents nonspecific inflammation. The etio logy for this finding is not clear on this examination and close clinical follow-up is recommended. I f progressive symptoms, short-term follow-up CT of the abdomen and pelvis with IV contrast is recomme nded. 2. Moderate amount of stool within the colon and rectum. No bowel obstruction. 3. Asymmetric right lateral bladder wall thickening. This is nonspecific and could be correlated with urinalysis and cystoscopy. Enlarged prostate. ACT 112: Negative or not required by law. Electronically signed by: Mane Donovan M.D. 10/16/2022 8:03 AM
[2022-10-16] MEDS ORDERED: PROMETHAZINE HCL 6.25 MG in SODIUM CHLORIDE 0.9% 50 ML IV PRN (09:06)
[2022-10-16] MEDS ORDERED: KETOROLAC TROMETHAMINE 15 MG/ML VIAL IV PRN (09:06)
[2022-10-16] MEDS ORDERED: ACETAMINOPHEN 325 MG TAB PO PRN (09:06)
[2022-10-16] MEDS: CARBIDOPA/LEVODOPA 25/100MG TAB PO SCH ×3 (09:42→16:37)
--- NOTE | 2022-10-16 13:01 | Surgery Consultation ---
Date of Consultation October 16, 2022 Assessment & Plan (1) Sepsis: (2) Acute UTI (urinary tract infection): (3) Weakness: (4) Abdominal pain: Plan 81-year-old gentleman admitted to the hospital for complex UTI. Incidental finding of right lower quadrant mesenteric edema. This is a nonspecific findings. No surgical intervention required at this time. Continue treatment for the complex UTI. We will sign off. Please call with any questions. History of Present Illness Reason for Consultation: Mesenteric inflammation Requesting Physician: Eriberto Go MD Attending Physician: Eriberto Go MD History of Present Illness 81-year-old gentleman with a few day history of increasing weakness and lower abdominal pain at home. He has been having trouble using the bathroom. He has significant pain with urination. Admission to the hospital for complicated UTI. CT scan also demonstrates nonspecific mesenteric edema/inflammation in the right lower quadrant. Normal appendix. No fevers. Normal bowel movements. No nausea or vomiting. Allergies Allergy/AdvReac Type Severity Reaction Status Date / Time doxycycline Allergy Intermediate HOARSENESS,THROAT Verified 07/01/22 13:36 GOT TIGHT grass pollen-perennial rye, Allergy Intermediate CONGESTION, Verified 07/01/22 13:36 standar ITCHY EYES, SNEEZING pollen extracts Allergy Intermediate CONGESTION, Verified 07/01/22 13:36 ITCHY EYES, SNEEZING Sulfa (Sulfonamide Allergy Intermediate Unknown Verified 07/01/22 13:36 Antibiotics) Home Medications Medication Instructions Recorded Confirmed Type cholecalciferol (vitamin D3) 25 1,000 unit PO QAM 05/19/19 07/01/22 History mcg (1,000 unit) capsule (Vitamin D3) ascorbic acid (vitamin C) 500 mg 500 mg PO 4XWK 07/01/22 07/01/22 History tablet (Vitamin C) carbidopa 25 mg-levodopa 100 mg See Rx Instructions .Route .COMPLEX 07/01/22 07/01/22 History tablet zinc acetate 25 mg (zinc) capsule 25 mg PO 3XWK 07/01/22 07/01/22 History Patient History Medical History Cardiac murmur Echo 01/2019 = Mild MR and aortic sclerosis without stenosis. 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 Christian 02/11/17 Hx of cataract surgery bilateral Hx of inguinal hernia surgery (07/12/19) Right Open Inguinal Hernia Repair with Mesh Dr. Amado 07-12-19 Status post Mohs surgery Family History Mother Cancer Hypertension Father Heart disease Sister Stroke Other Family history non-contributory No family history of adverse response to anesthesia Social History Smoking Status: Never smoker Second Hand Exposure: No; Do You Dip or Chew Tobacco: No; Tobacco Cessation Education Requested by Patient: No Hx Alcohol Use: No Hx Substance Use: No Preferred Language: Lithuanian Communication Ability: Effective Signals Officer Required: No Beliefs That Will Affect Care: None marital status: Current Living Situation: Spouse current occupational status: retired current occupation: Retired Teacher Other Information That Helps Us Care for You: No Feels Safe at Home: Yes Safety Concerns: Feels Safe At This Time Assistive Devices: Walker Review of Systems Review of Systems: All systems reviewed & are unremarkable except as noted in HPI & below Physical Exam Constitutional: WD/WN, vitals as above Eyes: PERRL, conjunctivae normal, anicteric sclerae Neck: trachea midline, no thyromegaly Respiratory: normal respiratory effort; no respiratory distress and no labored breathing Cardiovascular: Rate/Rhythm: regular rate and regular rhythm Gastrointestinal (Abdomen): Inspection/Auscultation: abdomen normal to inspection; abdomen not distended Percussion/Palpation: abdomen soft; abdomen nontender, no guarding and abdomen not rigid Skin: no rashes, warm and dry Psychiatric: A+Ox3, euthymic affect Results & Data Vital Signs (Past 12 Hours) Vital Signs Temp Pulse Pulse Resp BP BP Pulse Ox 10/16/22 11:41 36.5 C 67 18 126/80 96 10/16/22 10:03 67 10/16/22 09:08 36.5 C 70 16 158/82 H 94 10/16/22 07:20 72 18 141/90 H 93 10/16/22 06:07 71 18 133/78 94 10/16/22 05:16 77 18 95 10/16/22 04:36 79 18 136/79 96 10/16/22 04:31 95 10/16/22 04:26 79 10/16/22 04:23 37.0 C 82 18 153/90 H 95 O2 Del Method 10/16/22 11:41 Room Air 10/16/22 10:03 10/16/22 09:08 Room Air 10/16/22 07:20 Room Air 10/16/22 06:07 Room Air 10/16/22 05:16 Room Air 10/16/22 04:36 10/16/22 04:31 Room Air 10/16/22 04:26 10/16/22 04:23 Laboratory Results 10/16/22 10/16/22 10/16/22 Range/Units 05:14 04:42 04:42 WBC (4.8-10.8) K/ul RBC (4.70-6.10) M/uL Hgb (14.0-18.0) g/dl Hct (42.0-52.0) % MCV (80.0-100.0) fL MCH (25.0-34.0) pg MCHC (32.0-36.0) g/dL RDW Std Deviation (36.4-46.3) fL RDW Coeff of Olena (11.5-14.5) % Plt Count (130-400) K/uL MPV (9.4-12.4) fL Immature Gran % (Auto) % Neut % (Auto) % Lymph % (Auto) % Levy % (Auto) % Eos % (Auto) % Baso % (Auto) % Neut # (Auto) (1.40-6.50) K/uL Lymph # (Auto) (1.2-3.4) K/uL Levy # (Auto) (0.11-0.59) K/uL Eos # (Auto) (0-0.50) K/uL Baso # (Auto) (0-0.2) K/uL Immature Gran # (Auto) (0.01-0.20) K/uL RBC Morphology Sodium (136-145) mmol/L Potassium (3.5-5.1) mmol/L Chloride (98-107) mmol/L Carbon Dioxide (21-32) mmol/L Anion Gap (3-11) BUN (6-23) mg/dl Creatinine (0.6-1.4) mg/dl Est Cr Clr Drug Dosing ml/min Est GFR ( Amer) ml/min Est GFR (Non-Af Amer) ml/min BUN/Creatinine Ratio (10-20) Glucose (70-99(Fasting)) mg/dl POC Glucose 129 H (70-99) mg/dl Estimat Average Glucose 120 mg/dl Hemoglobin A1c 5.8 H (4.5-5.6) % Lactate (0.4-2.0) mmol/L Calcium (8.6-10.3) mg/dl Magnesium (1.7-2.4) mg/dl Total Bilirubin (0.2-1.0) mg/dl Direct Bilirubin (0-0.2) mg/dl AST (13-39) U/L ALT (7-52) U/L Alkaline Phosphatase (34-104) U/L Troponin I High Sens (0-20) pg/ml Total Protein (6.0-8.3) gm/dl Albumin (3.4-5.0) gm/dl Procalcitonin (0-0.5) ng/ml TSH 4.091 (0.300-4.500) uIu/ml Urine Color Urine Appearance (Clear) Urine pH (4.5-7.5) Ur Specific Empire (1.000-1.030) Urine Protein (Negative) Urine Glucose (UA) (Negative) Urine Ketones (Negative) Urine Blood (Negative) Urine Nitrite (Negative) Urine Bilirubin (Negative) Urine Urobilinogen (Negative) Ur Leukocyte Esterase (Negative) Urine WBC (Auto) (0-5) /hpf Urine RBC (Auto) (0-4) /hpf U Hyaline Cast (Auto) (0-5) /lpf U Epithel Cells (Auto) (0-5) /lpf Urine Bacteria (Auto) (Negative) SARS-CoV-2, RNA, NAAT (NEGATIVE) 10/16/22 10/16/22 10/16/22 Range/Units 04:42 04:42 04:42 WBC (4.8-10.8) K/ul RBC (4.70-6.10) M/uL Hgb (14.0-18.0) g/dl Hct (42.0-52.0) % MCV (80.0-100.0) fL MCH (25.0-34.0) pg MCHC (32.0-36.0) g/dL RDW Std Deviation (36.4-46.3) fL RDW Coeff of Olena (11.5-14.5) % Plt Count (130-400) K/uL MPV (9.4-12.4) fL Immature Gran % (Auto) % Neut % (Auto) % Lymph % (Auto) % Levy % (Auto) % Eos % (Auto) % Baso % (Auto) % Neut # (Auto) (1.40-6.50) K/uL Lymph # (Auto) (1.2-3.4) K/uL Levy # (Auto) (0.11-0.59) K/uL Eos # (Auto) (0-0.50) K/uL Baso # (Auto) (0-0.2) K/uL Immature Gran # (Auto) (0.01-0.20) K/uL RBC Morphology Sodium (136-145) mmol/L Potassium (3.5-5.1) mmol/L Chloride (98-107) mmol/L Carbon Dioxide (21-32) mmol/L Anion Gap (3-11) BUN (6-23) mg/dl Creatinine (0.6-1.4) mg/dl Est Cr Clr Drug Dosing ml/min Est GFR ( Amer) ml/min Est GFR (Non-Af Amer) ml/min BUN/Creatinine Ratio (10-20) Glucose (70-99(Fasting)) mg/dl POC Glucose (70-99) mg/dl Estimat Average Glucose mg/dl Hemoglobin A1c (4.5-5.6) % Lactate (0.4-2.0) mmol/L Calcium (8.6-10.3) mg/dl Magnesium (1.7-2.4) mg/dl Total Bilirubin (0.2-1.0) mg/dl Direct Bilirubin (0-0.2) mg/dl AST (13-39) U/L ALT (7-52) U/L Alkaline Phosphatase (34-104) U/L Troponin I High Sens (0-20) pg/ml Total Protein (6.0-8.3) gm/dl Albumin (3.4-5.0) gm/dl Procalcitonin < 0.05 (0-0.5) ng/ml TSH (0.300-4.500) uIu/ml Urine Color Yellow Urine Appearance Cloudy A (Clear) Urine pH 6.0 (4.5-7.5) Ur Specific Empire 1.019 (1.000-1.030) Urine Protein 1+ H (Negative) Urine Glucose (UA) Negative (Negative) Urine Ketones Trace H (Negative) Urine Blood 3+ H (Negative) Urine Nitrite Positive A (Negative) Urine Bilirubin Negative (Negative) Urine Urobilinogen Negative (Negative) Ur Leukocyte Esterase 1+ H (Negative) Urine WBC (Auto) >30 H (0-5) /hpf Urine RBC (Auto) >30 H (0-4) /hpf U Hyaline Cast (Auto) 1-5 (0-5) /lpf U Epithel Cells (Auto) 0-5 (0-5) /lpf Urine Bacteria (Auto) 4+ H (Negative) SARS-CoV-2, RNA, NAAT NEGATIVE (NEGATIVE) 10/16/22 10/16/22 10/16/22 Range/Units 04:42 04:42 04:42 WBC 17.40 H (4.8-10.8) K/ul RBC 3.52 L (4.70-6.10) M/uL Hgb 11.7 L (14.0-18.0) g/dl Hct 33.9 L (42.0-52.0) % MCV 96.3 (80.0-100.0) fL MCH 33.2 (25.0-34.0) pg MCHC 34.5 (32.0-36.0) g/dL RDW Std Deviation 44.3 (36.4-46.3) fL RDW Coeff of Olena 12.7 (11.5-14.5) % Plt Count 173 (130-400) K/uL MPV 12.4 (9.4-12.4) fL Immature Gran % (Auto) 0.5 % Neut % (Auto) 90.6 % Lymph % (Auto) 1.8 % Levy % (Auto) 6.9 % Eos % (Auto) 0.0 % Baso % (Auto) 0.2 % Neut # (Auto) 15.76 H (1.40-6.50) K/uL Lymph # (Auto) 0.32 L (1.2-3.4) K/uL Levy # (Auto) 1.20 H (0.11-0.59) K/uL Eos # (Auto) 0.00 (0-0.50) K/uL Baso # (Auto) 0.03 (0-0.2) K/uL Immature Gran # (Auto) 0.09 (0.01-0.20) K/uL RBC Morphology Unremarkable Sodium 133 L (136-145) mmol/L Potassium 3.2 L (3.5-5.1) mmol/L Chloride 101 (98-107) mmol/L Carbon Dioxide 24 (21-32) mmol/L Anion Gap 8 (3-11) BUN 27 H (6-23) mg/dl Creatinine 0.76 (0.6-1.4) mg/dl Est Cr Clr Drug Dosing 73.5 ml/min Est GFR ( Amer) 100.6 ml/min Est GFR (Non-Af Amer) 86.8 ml/min BUN/Creatinine Ratio 35.5 H (10-20) Glucose 139 H (70-99(Fasting)) mg/dl POC Glucose (70-99) mg/dl Estimat Average Glucose mg/dl Hemoglobin A1c (4.5-5.6) % Lactate 0.9 (0.4-2.0) mmol/L Calcium 8.3 L (8.6-10.3) mg/dl Magnesium 1.8 (1.7-2.4) mg/dl Total Bilirubin 0.8 (0.2-1.0) mg/dl Direct Bilirubin 0.1 (0-0.2) mg/dl AST 19 (13-39) U/L ALT 8 (7-52) U/L Alkaline Phosphatase 126 H (34-104) U/L Troponin I High Sens 9.4 (0-20) pg/ml Total Protein 6.8 (6.0-8.3) gm/dl Albumin 3.7 (3.4-5.0) gm/dl Procalcitonin (0-0.5) ng/ml TSH (0.300-4.500) uIu/ml Urine Color Urine Appearance (Clear) Urine pH (4.5-7.5) Ur Specific Empire (1.000-1.030) Urine Protein (Negative) Urine Glucose (UA) (Negative) Urine Ketones (Negative) Urine Blood (Negative) Urine Nitrite (Negative) Urine Bilirubin (Negative) Urine Urobilinogen (Negative) Ur Leukocyte Esterase (Negative) Urine WBC (Auto) (0-5) /hpf Urine RBC (Auto) (0-4) /hpf U Hyaline Cast (Auto) (0-5) /lpf U Epithel Cells (Auto) (0-5) /lpf Urine Bacteria (Auto) (Negative) SARS-CoV-2, RNA, NAAT (NEGATIVE) Diagnostic Findings CT OF THE ABDOMEN AND PELVIS WITH CONTRAST CLINICAL HISTORY: Abdominal pain, nausea and vomiting. COMPARISON STUDY: CT of the abdomen and pelvis July 01, 2022. TECHNIQUE: Following IV administration of 94 mL of Optiray, axial images of the abdomen and pelvis were obtained from the lung bases to the proximal femurs. Images were reviewed in the axial, sagittal, and coronal planes. IV contrast was administered without complication. Automated exposure control was utilized for the study. A dose lowering technique was utilized adhering to the principles of ALARA. CT DOSE: 266.18 mGy.cm FINDINGS: No pneumatosis, free air or portal venous gas is present. Subpleural opacities within the lower lungs represent atelectasis. The liver, spleen, adrenal glands and pancreas are unremarkable. There is no biliary or pancreatic ductal dilatation. Water attenuation bilateral renal lesions reflect cysts. There is no hydronephrosis. A patent left renal vein stent is noted. A moderate amount of stool within the colon and rectum is present. There is no evidence for a bowel obstruction. There is possible visualization of a normal appendix on axial image 290 of 436. Note is made of nonspecific right abdominal mesenteric inflammation. No fluid collection is present. There is trace fluid within the right lower quadrant as well. No fluid collection is identified. There is no lymphadenopathy. The prostate is enlarged, measuring 6 cm in transverse dimension. There is asymmetric right lateral bladder wall thickening. Healing right pubic ring fractures are noted. There are also healing bilateral sacral ala fractures. IMPRESSION: 1. Right abdominal mesenteric edema and stranding. This represents nonspecific inflammation. The etiology for this finding is not clear on this examination and close clinical follow-up is recommended. If progressive symptoms, short-term follow-up CT of the abdomen and pelvis with IV contrast is recommended. 2. Moderate amount of stool within the colon and rectum. No bowel obstruction. 3. Asymmetric right lateral bladder wall thickening. This is nonspecific and could be correlated with urinalysis and cystoscopy. Enlarged prostate.
[2022-10-16] MEDS: HEPARIN SOD 5,000 UNIT/0.5 ML VIAL SQ SCH ×2 (13:07→22:28)
[2022-10-16] MEDS: CEFEPIME 2,000 MG in SYRINGE 0 ML IV SCH ×2 (13:09→22:19)
--- NOTE | 2022-10-16 14:38 | Hospitalist Progress Note ---
Date of Service October 16, 2022 Assessment & Plan (1) Sepsis: Plan: Secondary To complicated UTI History of BPH CT abdomen pelvis: 1. Right abdominal mesenteric edema and stranding. This represents nonspecific inflammation. The etiology for this finding is not clear on this examination and close clinical follow-up is recommended. If progressive symptoms, short-term follow-up CT of the abdomen and pelvis with IV contrast is recommended. 2. Moderate amount of stool within the colon and rectum. No bowel obstruction. 3. Asymmetric right lateral bladder wall thickening. This is nonspecific and could be correlated with urinalysis and cystoscopy. Enlarged prostate. Follow-up urine and blood cultures Continue IV cefepime PVD, history renal vein stent valvular heart disease (mild MR) Parkinson's disease, some slowness likely secondary to infection chronic anemia, hemoglobin at baseline Hypokalemia secondary to emesis-replaced Hyperglycemia rule out DM-A1c 5.8 Malnutrition, low BMI Dietitian consult Re: Low BMI PT OT eval once medically stable DVT prophylaxis. Heparin subcu Full code plan of care discussed with patient in detail and at length all questions answered he is understanding, agreeable, comfortable with the plan of care Admission and Anticipated Discharge Date Admission Date: October 16, 2022 Subjective Follow-up for sepsis, UTI, etc. Seen sitting up in bed, awake and alert In good spirits States he feels improved compared to earlier during admission Still has some lower abdominal discomfort No fevers or chills, flank pain, back pain, nausea or vomiting no chest pain, dyspnea, palpitations, dizziness No other new symptoms Review of Systems Review of Systems: all noted and negative except for above Physical Exam Physical Exam: General- oriented x 3, not in distress, speaks in sentences with no effort or accessory muscle use Eyes- anicteric Neck- no JVD Lungs- clear breath sounds bilaterally, no rales/wheezes Heart- normal rate, regular rhythm; no murmurs Abdomen- normal bowel sounds, nondistended, soft, mild suprapubic tenderness Extremities- no pretibial edema, no calf tenderness Neuro- alert, oriented x 3; no gross focal neurologic deficits Skin- warm & dry Results & Data Results & Data Vital Signs (Past 12 Hours) Vital Signs Temp Pulse Pulse Resp BP BP Pulse Ox 10/16/22 11:41 36.5 C 67 18 126/80 96 10/16/22 10:03 67 10/16/22 09:08 36.5 C 70 16 158/82 H 94 10/16/22 07:20 72 18 141/90 H 93 10/16/22 06:07 71 18 133/78 94 10/16/22 05:16 77 18 95 10/16/22 04:36 79 18 136/79 96 10/16/22 04:31 95 10/16/22 04:26 79 10/16/22 04:23 37.0 C 82 18 153/90 H 95 O2 Del Method 10/16/22 11:41 Room Air 10/16/22 10:03 10/16/22 09:08 Room Air 10/16/22 07:20 Room Air 10/16/22 06:07 Room Air 10/16/22 05:16 Room Air 10/16/22 04:36 10/16/22 04:31 Room Air 10/16/22 04:26 10/16/22 04:23 all noted and reviewed including below
--- NOTE | 2022-10-16 21:42 | Electrocardiogram Report ---
Test Reason : Blood Pressure : / mmHG Vent. Rate : 080 BPM Atrial Rate : 080 BPM P-R Int : 274 ms QRS Dur : 152 ms QT Int : 414 ms P-R-T Axes : 062 -53 009 degrees QTc Int : 477 ms Poor data quality, interpretation may be adversely affected Sinus rhythm with 1st degree A-V block Right bundle branch block Left anterior fascicular block Bifascicular block Abnormal ECG When compared with ECG of 20-OCT-2017 13:58, T wave inversion now evident in Anterior leads Confirmed by Zion Milton ([id number]) on 10/16/2022 9:41:55 PM Referred By: REFERRED SELF Confirmed By:Zion Milton
[2022-10-17] MEDS: CEFEPIME 2,000 MG in SYRINGE 0 ML IV SCH ×3 (05:35→20:43)
[2022-10-17] MEDS: HEPARIN SOD 5,000 UNIT/0.5 ML VIAL SQ SCH ×3 (05:36→20:43)
[2022-10-17 06:52] LABS: Basophils # (auto) 0.04 K/uL (0-0.2); Basophils % (auto) 0.3 %; Eosinophils # (auto) 0.01 K/uL (0-0.50); Eosinophils % (auto) 0.1 %; Hematocrit (blood only) 32.5 % (42.0-52.0); Hemoglobin 11.2 g/dl (14.0-18.0); Immature Granulocytes # (auto) 0.08 K/uL (0.01-0.20); Immature Granulocytes % (auto) 0.6 %; Lymphocytes # (auto) 1.46 K/uL (1.2-3.4); Mean Corpuscular Hemoglobin 33.1 pg (25.0-34.0); Mean Corpuscular Hgb Conc 34.5 g/dL (32.0-36.0); Mean Corpuscular Volume 96.2 fL (80.0-100.0); Mean Platelet Volume 12.7 fL (9.4-12.4); Monocytes # (auto) 1.26 K/uL (0.11-0.59); Monocytes % (auto) 8.7 %; Neutrophils # (auto) 11.69 K/uL (1.40-6.50); Neutrophils % (auto) 80.3 %; Platelet Count 166 K/uL (130-400); RDW Coefficient of Variation 12.9 % (11.5-14.5); RDW Standard Deviation 44.9 fL (36.4-46.3); Red Blood Count 3.38 M/uL (4.70-6.10); White Blood Count 14.54 K/ul (4.8-10.8)
[2022-10-17 07:12] LABS: Calcium 8.4 mg/dl (8.6-10.3); Creatinine Clr Calc Pharmacy 74.8 ml/min; Est GFR (Non-African American) 86.3 ml/min; Potassium 3.7 mmol/L (3.5-5.1)
[2022-10-17] MEDS: CARBIDOPA/LEVODOPA 25/100MG TAB PO SCH ×3 (07:31→16:25)
--- NOTE | 2022-10-17 15:34 | Hospitalist Progress Note ---
Date of Service October 17, 2022 Assessment & Plan (1) Sepsis: Plan: Secondary To complicated UTI History of BPH CT abdomen pelvis: 1. Right abdominal mesenteric edema and stranding. This represents nonspecific inflammation. The etiology for this finding is not clear on this examination and close clinical follow-up is recommended. If progressive symptoms, short-term follow-up CT of the abdomen and pelvis with IV contrast is recommended. 2. Moderate amount of stool within the colon and rectum. No bowel obstruction. 3. Asymmetric right lateral bladder wall thickening. This is nonspecific and could be correlated with urinalysis and cystoscopy. Enlarged prostate. Follow-up urine and blood cultures Continue IV cefepime 10/17 Urine culture: Gram-negative bacilli Blood cultures: Pending Afebrile, clinically improving Continue IV cefepime PVD, history renal vein stent valvular heart disease (mild MR) Parkinson's disease, PT and OT evaluation chronic anemia, hemoglobin at baseline Hypokalemia secondary to emesis-replaced Hyperglycemia rule out DM-A1c 5.8 Malnutrition, low BMI Dietitian consult Re: Low BMI PT OT eval once medically stable DVT prophylaxis. Heparin subcu Full code plan of care discussed with patient in detail and at length all questions answered he is understanding, agreeable, comfortable with the plan of care Admission and Anticipated Discharge Date Admission Date: October 16, 2022 Subjective Follow-up for sepsis, UTI, etc. Seen resting in bed, comfortable, not in distress In good spirits States he feels improved today compared to yesterday Less lower abdominal pain, dysuria No nausea/vomiting, fevers or chills no chest pain, dyspnea, palpitations, dizziness Review of Systems Review of Systems: all noted and negative except for above Physical Exam Physical Exam: General- oriented x 3, not in distress, speaks in sentences with no effort or accessory muscle use Eyes- anicteric Neck- no JVD Lungs- clear BS bilaterally, no crackles Heart- normal rate, regular rhythm; no murmurs Abdomen- normal bowel sounds, nondistended, soft, no tenderness Extremities- no pretibial edema, no calf tenderness Neuro- alert, oriented x 3; no gross focal neurologic deficits Skin- warm & dry Results & Data Results & Data Vital Signs (Past 12 Hours) Vital Signs Temp Pulse Pulse Resp BP BP Pulse Ox 10/17/22 15:20 36.4 C L 67 18 169/81 H 95 10/17/22 11:48 36.5 C 60 18 150/84 H 94 10/17/22 08:04 36.6 C 60 18 173/83 H 95 10/17/22 07:21 68 10/17/22 07:12 10/17/22 03:46 36.7 C 68 16 171/74 H 92 O2 Del Method 10/17/22 15:20 Room Air 10/17/22 11:48 Room Air 10/17/22 08:04 Room Air 10/17/22 07:21 10/17/22 07:12 Room Air 10/17/22 03:46 Room Air all noted and reviewed including below
--- NOTE | 2022-10-17 23:29 | Communication Note ---
Date of Service: October 17, 2022 Made aware by RN of uncontrolled blood pressure. SBP 140-1 90s the last 24 hours. Patient complaning of bladder pain from UTI as per RN.. AP Hypertensive urgency, possible chronic BP elevation given cardiomegaly on CXR Cystitis pain Initiate lisinopril Pyridium prn bladder pain Will relay to AM provider.
[2022-10-18] MEDS: lisinopril 2.5 MG TAB PO SCH ×2 (00:29→20:17)
[2022-10-18] MEDS: PHENAZOPYRIDINE HCL 100 MG TAB PO PRN ×3 (00:29→23:57)
[2022-10-18] MEDS: HEPARIN SOD 5,000 UNIT/0.5 ML VIAL SQ SCH ×3 (05:57→21:08)
[2022-10-18] MEDS: CEFEPIME 2,000 MG in SYRINGE 0 ML IV SCH (05:57)
[2022-10-18] MEDS: CARBIDOPA/LEVODOPA 25/100MG TAB PO SCH ×3 (08:14→15:30)
[2022-10-18] MEDS: ADVANCED PROBIOTIC 1250 MG CAPSULE PO SCH (09:31)
[2022-10-18] MEDS: cefTRIAXone SODIUM 2,000 MG in DEXTROSE 5% 50 ML IV SCH (11:41)
--- NOTE | 2022-10-18 18:38 | Hospitalist Progress Note ---
Date of Service October 18, 2022 Assessment & Plan (1) Sepsis: Plan: Secondary To complicated UTI History of BPH CT abdomen pelvis: 1. Right abdominal mesenteric edema and stranding. This represents nonspecific inflammation. The etiology for this finding is not clear on this examination and close clinical follow-up is recommended. If progressive symptoms, short-term follow-up CT of the abdomen and pelvis with IV contrast is recommended. 2. Moderate amount of stool within the colon and rectum. No bowel obstruction. 3. Asymmetric right lateral bladder wall thickening. This is nonspecific and could be correlated with urinalysis and cystoscopy. Enlarged prostate. Follow-up urine and blood cultures Continue IV cefepime 10/17 Urine culture: Gram-negative bacilli Blood cultures: Pending Afebrile, clinically improving Continue IV cefepime 10/18 Urine culture: E. coli, pansensitive Blood cultures: Negative so far Patient clinically improving, afebrile Transition from IV cefepime to IV ceftriaxone antibiotic day #3 PT OT evaluation PVD, history renal vein stent valvular heart disease (mild MR) Parkinson's disease, PT and OT evaluation chronic anemia, hemoglobin at baseline Hypokalemia secondary to emesis-replaced Hyperglycemia rule out DM-A1c 5.8 Malnutrition, low BMI Dietitian consult Re: Low BMI PT OT eval once medically stable DVT prophylaxis. Heparin subcu Full code plan of care discussed with patient in detail and at length all questions answered he is understanding, agreeable, comfortable with the plan of care Admission and Anticipated Discharge Date Admission Date: October 16, 2022 Subjective Follow-up for UTI, etc. Seen resting in bed, in good spirits, very pleasant States he continues to feel improved gradually Still having some dysuria but no abdominal pain, nausea vomiting, fevers or chills no chest pain, dyspnea, palpitations, dizziness No other symptoms Review of Systems Review of Systems: all noted and negative except for above Physical Exam Physical Exam: General- oriented x 3, not in distress, speaks in sentences with no effort or accessory muscle use Eyes- anicteric Neck- no JVD Lungs- clear BS base BL Heart- normal rate, regular rhythm; no murmurs Abdomen- normal bowel sounds, nondistended, soft, nontender No suprapubic tenderness Extremities- no pretibial edema, no calf tenderness Neuro- alert, oriented x 3; no gross focal neurologic deficits Skin- warm & dry Results & Data Results & Data Vital Signs (Past 12 Hours) Vital Signs Temp Pulse Pulse Resp BP BP Pulse Ox 10/18/22 15:03 70 10/18/22 15:02 36.5 C 59 L 18 137/93 98 10/18/22 11:23 36.5 C 67 18 167/82 H 95 10/18/22 08:53 61 10/18/22 07:21 37 C 64 18 165/80 H 94 10/18/22 07:15 O2 Del Method 10/18/22 15:03 10/18/22 15:02 Room Air 10/18/22 11:23 Room Air 10/18/22 08:53 10/18/22 07:21 Room Air 10/18/22 07:15 Room Air all noted and reviewed including below
[2022-10-18] MEDS ORDERED: lisinopril 2.5 MG TAB PO ONE (23:17)
[2022-10-19] MEDS: HEPARIN SOD 5,000 UNIT/0.5 ML VIAL SQ SCH ×3 (06:16→20:38)
[2022-10-19] MEDS ORDERED: hydrALAZINE HCL 20 MG/ML VIAL IV PRN (07:32)
[2022-10-19] MEDS ORDERED: hydrALAZINE HCL 20 MG/ML VIAL IV STA (07:32)
[2022-10-19] MEDS: CARBIDOPA/LEVODOPA 25/100MG TAB PO SCH ×3 (08:04→16:52)
[2022-10-19] MEDS: ADVANCED PROBIOTIC 1250 MG CAPSULE PO SCH (08:04)
[2022-10-19] MEDS: PHENAZOPYRIDINE HCL 100 MG TAB PO PRN ×2 (08:04→22:37)
[2022-10-19] MEDS: amLODIPine BESYLATE 5 MG TAB PO SCH (11:22)
[2022-10-19] MEDS: cefTRIAXone SODIUM 2,000 MG in DEXTROSE 5% 50 ML IV SCH (11:51)
--- NOTE | 2022-10-19 16:02 | Hospitalist Progress Note ---
Date of Service October 19, 2022 Assessment & Plan (1) Sepsis: Plan: Secondary To complicated UTI In the setting of intermittent catheter use History of BPH Patient uses condom catheter at night due to urinary frequency CT abdomen pelvis: 1. Right abdominal mesenteric edema and stranding. This represents nonspecific inflammation. The etiology for this finding is not clear on this examination and close clinical follow-up is recommended. If progressive symptoms, short-term follow-up CT of the abdomen and pelvis with IV contrast is recommended. 2. Moderate amount of stool within the colon and rectum. No bowel obstruction. 3. Asymmetric right lateral bladder wall thickening. This is nonspecific and could be correlated with urinalysis and cystoscopy. Enlarged prostate. Urine culture: E. coli pansensitive Blood cultures: Negative Clinically improved, afebrile Change IV cefepime to IV ceftriaxone antibiotic day #4 Transition to oral cefdinir or cefuroxime upon discharge x6 more days to complete 10-day course Patient and family advised to stop performing condom catheter placement Patient to transition to acute rehab when accepted PVD, history renal vein stent valvular heart disease (mild MR) Parkinson's disease chronic anemia, hemoglobin at baseline Hypokalemia secondary to emesis-replaced Hyperglycemia rule out DM-A1c 5.8 Malnutrition, low BMI Dietitian consult Re: Low BMI PT OT eval once medically stable DVT prophylaxis. Heparin subcu DNR -discussed with patient Disposition [facility] plan of care discussed with patient in detail and at length all questions answered he is understanding, agreeable, comfortable with the plan of care Admission and Anticipated Discharge Date Admission Date: October 16, 2022 Subjective Follow-up for E. coli UTI, in the setting of condom catheter use, etc Seen sitting up in bedside, not in distress, comfortable, very pleasant, in good spirits States he feels okay overall Bladder pain and dysuria continues to improve No fevers or chills Still feels on the weak side while ambulating no chest pain, dyspnea, palpitations, dizziness Review of Systems Review of Systems: all noted and negative except for above Physical Exam Physical Exam: General- oriented x 3, not in distress, speaks in sentences with no effort or accessory muscle use Eyes- anicteric Neck- no JVD Lungs- clear BS bilaterally, no rales/wheezes Heart- normal rate, regular rhythm; no murmurs Abdomen- normal bowel sounds, nondistended, soft, no tenderness Extremities- no pretibial edema, no calf tenderness Neuro- alert, oriented x 3; no gross focal neurologic deficits Skin- warm & dry Results & Data Results & Data Vital Signs (Past 12 Hours) Vital Signs Temp Pulse Pulse Resp BP Pulse Ox O2 Del Method 10/19/22 15:33 36.3 C L 68 20 108/69 98 Room Air 10/19/22 11:06 36.4 C L 72 16 124/69 95 Room Air 10/19/22 10:17 Room Air 10/19/22 08:57 115/66 10/19/22 07:22 36.3 C L 61 16 201/91 H 97 Room Air 10/19/22 07:15 57 L all noted and reviewed including below
[2022-10-19] MEDS ORDERED: lisinopril 5 MG TAB PO SCH (21:00)
[2022-10-20] MEDS: HEPARIN SOD 5,000 UNIT/0.5 ML VIAL SQ SCH ×3 (06:15→22:25)
[2022-10-20] MEDS: CARBIDOPA/LEVODOPA 25/100MG TAB PO SCH ×3 (07:33→16:40)
[2022-10-20] MEDS: amLODIPine BESYLATE 5 MG TAB PO SCH (09:07)
[2022-10-20] MEDS: ADVANCED PROBIOTIC 1250 MG CAPSULE PO SCH (09:07)
[2022-10-20] MEDS ORDERED: SODIUM CHLORIDE 0.9% 1000ML 500 ML IV ONE (09:31)
[2022-10-20] MEDS: SODIUM CHLORIDE 0.9% 1000ML 1,000 ML IV SCH ×2 (10:36→16:43)
[2022-10-20] MEDS: cefTRIAXone SODIUM 2,000 MG in DEXTROSE 5% 50 ML IV SCH (11:47)
[2022-10-20] MEDS ORDERED: MAGNESIUM HYDROXIDE SUSP 30 ML UDC PO ONE (15:27)
--- NOTE | 2022-10-20 15:31 | Hospitalist Progress Note ---
Date of Service October 20, 2022 Assessment & Plan (1) Sepsis: Plan: Secondary To complicated UTI In the setting of intermittent catheter use History of BPH Patient uses condom catheter at night due to urinary frequency CT abdomen pelvis: 1. Right abdominal mesenteric edema and stranding. This represents nonspecific inflammation. The etiology for this finding is not clear on this examination and close clinical follow-up is recommended. If progressive symptoms, short-term follow-up CT of the abdomen and pelvis with IV contrast is recommended. 2. Moderate amount of stool within the colon and rectum. No bowel obstruction. 3. Asymmetric right lateral bladder wall thickening. This is nonspecific and could be correlated with urinalysis and cystoscopy. Enlarged prostate. Urine culture: E. coli pansensitive Blood cultures: Negative Clinically improved, afebrile Continue on antibiotic day 5 with ceftriaxone. Transition to oral cefdinir or cefuroxime upon discharge x6 more days to complete 10-day course Patient and family advised to stop performing condom catheter placement Near syncope secondary to orthostatic hypotension -On the morning of October 20, patient became dizzy with drop in blood pressure when standing up. No fall or focal deficit noted -He was evaluated at bedside; 500 cc of normal saline was ordered stat. Started on maintenance fluid. -Measure orthostatic vitals every 12 hours PVD, history renal vein stent valvular heart disease (mild MR) Parkinson's diseasecontinue on carbidopa levodopa. chronic anemia; labs reviewed; hemoglobin at baseline. Hypokalemia secondary to emesis-replaced Hyperglycemia rule out DM-A1c 5.8 Malnutrition, low BMI Dietitian consult Re: Low BMI PT OT eval once medically stable DVT prophylaxis. Heparin subcu DNR -discussed with patient Disposition Patient continues to be hospitalized due to orthostatic hypotension. Currently receiving IV hydration. Please note the above document was generated using voice recognition software. It may contain grammatical, syntax or spelling errors. Any formal questions or concerns about the content, text or information contained within the body of this dictation should be directly addressed to the provider for clarification Time spent evaluating patient, direct bedside care, chart review, placing orders, interpretation of diagnostic studies, discussion with consultants, pat ient, and family members, as well as other required patient management activities is 60 Admission and Anticipated Discharge Date Admission Date: October 16, 2022 Subjective Patient seen and examined at bedside. Patient became dizzy on standing up; SBP of 70s. He was given IV normal saline bolus with improvement in blood pressure. Review of Systems Review of Systems: All systems reviewed & are unremarkable except as noted in Subjective Physical Exam Physical Exam: General- oriented x 3, not in distress, speaks in sentences with no effort or accessory muscle use Eyes- anicteric Neck- no JVD Lungs- clear BS bilaterally, no rales/wheezes Heart- normal rate, regular rhythm; no murmurs Abdomen- normal bowel sounds, nondistended, soft, no tenderness Extremities- no pretibial edema, no calf tenderness Neuro- alert, oriented x 3; no gross focal neurologic deficits Skin- warm & dry Results & Data Results & Data Vital Signs (Past 12 Hours) Vital Signs Temp Pulse Pulse Resp BP Pulse Ox O2 Del Method 10/20/22 08:15 Room Air 10/20/22 12:00 36.3 C L 92 H 16 169/88 H 95 Room Air 10/20/22 10:17 73 133/77 10/20/22 10:05 71 118/74 10/20/22 09:48 72 92/56 L 10/20/22 09:41 71 61/42 L 10/20/22 09:20 36.8 C 68 18 90/56 L 94 Room Air 10/20/22 08:55 57 L 10/20/22 07:50 36.7 C 63 16 185/92 H 94 Room Air Laboratory Results Laboratory Results WBC 14.54 K/ul (4.8-10.8) H 10/17/22 06:12 RBC 3.38 M/uL (4.70-6.10) L 10/17/22 06:12 Hgb 11.2 g/dl (14.0-18.0) L 10/17/22 06:12 Hct 32.5 % (42.0-52.0) L 10/17/22 06:12 MCV 96.2 fL (80.0-100.0) 10/17/22 06:12 MCH 33.1 pg (25.0-34.0) 10/17/22 06:12 MCHC 34.5 g/dL (32.0-36.0) 10/17/22 06:12 RDW Std Deviation 44.9 fL (36.4-46.3) 10/17/22 06:12 RDW Coeff of Olena 12.9 % (11.5-14.5) 10/17/22 06:12 Plt Count 166 K/uL (130-400) 10/17/22 06:12 MPV 12.7 fL (9.4-12.4) H 10/17/22 06:12 Immature Gran % (Auto) 0.6 % 10/17/22 06:12 Neut % (Auto) 80.3 % 10/17/22 06:12 Lymph % (Auto) 10.0 % 10/17/22 06:12 [place] % (Auto) 8.7 % 10/17/22 06:12 Eos % (Auto) 0.1 % 10/17/22 06:12 Baso % (Auto) 0.3 % 10/17/22 06:12 Neut # (Auto) 11.69 K/uL (1.40-6.50) H 10/17/22 06:12 Lymph # (Auto) 1.46 K/uL (1.2-3.4) 10/17/22 06:12 [place] # (Auto) 1.26 K/uL (0.11-0.59) H 10/17/22 06:12 Eos # (Auto) 0.01 K/uL (0-0.50) 10/17/22 06:12 Baso # (Auto) 0.04 K/uL (0-0.2) 10/17/22 06:12 Immature Gran # (Auto) 0.08 K/uL (0.01-0.20) 10/17/22 06:12 RBC Morphology Unremarkable 10/16/22 04:42 Sodium 136 mmol/L (136-145) 10/17/22 06:12 Potassium 3.7 mmol/L (3.5-5.1) 10/17/22 06:12 Chloride 104 mmol/L (98-107) 10/17/22 06:12 Carbon Dioxide 26 mmol/L (21-32) 10/17/22 06:12 Anion Gap 6 (3-11) 10/17/22 06:12 BUN 20 mg/dl (6-23) 10/17/22 06:12 Creatinine 0.77 mg/dl (0.6-1.4) 10/17/22 06:12 Est Cr Clr Drug Dosing 74.8 ml/min 10/17/22 06:12 Est GFR ( Amer) 100.0 ml/min 10/17/22 06:12 Est GFR (Non-Af Amer) 86.3 ml/min 10/17/22 06:12 BUN/Creatinine Ratio 26.0 (10-20) H 10/17/22 06:12 Glucose 104 mg/dl (70-99(Fasting)) H 10/17/22 06:12 POC Glucose 129 mg/dl (70-99) H 10/16/22 05:14 Estimat Average Glucose 120 mg/dl 10/16/22 04:42 Hemoglobin A1c 5.8 % (4.5-5.6) H 10/16/22 04:42 Lactate 0.9 mmol/L (0.4-2.0) 10/16/22 04:42 Calcium 8.4 mg/dl (8.6-10.3) L 10/17/22 06:12 Magnesium 1.8 mg/dl (1.7-2.4) 10/16/22 04:42 Total Bilirubin 0.8 mg/dl (0.2-1.0) 10/16/22 04:42 Direct Bilirubin 0.1 mg/dl (0-0.2) 10/16/22 04:42 AST 19 U/L (13-39) 10/16/22 04:42 ALT 8 U/L (7-52) 10/16/22 04:42 Alkaline Phosphatase 126 U/L (34-104) H 10/16/22 04:42 Troponin I High Sens 9.4 pg/ml (0-20) 10/16/22 04:42 Total Protein 6.8 gm/dl (6.0-8.3) 10/16/22 04:42 Albumin 3.7 gm/dl (3.4-5.0) 10/16/22 04:42 Procalcitonin < 0.05 ng/ml (0-0.5) 10/16/22 04:42 TSH 4.091 uIu/ml (0.300-4.500) 10/16/22 04:42 Urine Color Yellow 10/16/22 04:42 Urine Appearance Cloudy (Clear) A 10/16/22 04:42 Urine pH 6.0 (4.5-7.5) 10/16/22 04:42 Ur Specific [place] 1.019 (1.000-1.030) 10/16/22 04:42 Urine Protein 1+ (Negative) H 10/16/22 04:42 Urine Glucose (UA) Negative (Negative) 10/16/22 04:42 Urine Ketones Trace (Negative) H 10/16/22 04:42 Urine Blood 3+ (Negative) H 10/16/22 04:42 Urine Nitrite Positive (Negative) A 10/16/22 04:42 Urine Bilirubin Negative (Negative) 10/16/22 04:42 Urine Urobilinogen Negative (Negative) 10/16/22 04:42 Ur Leukocyte Esterase 1+ (Negative) H 10/16/22 04:42 Urine WBC (Auto) >30 /hpf (0-5) H 10/16/22 04:42 Urine RBC (Auto) >30 /hpf (0-4) H 10/16/22 04:42 U Hyaline Cast (Auto) 1-5 /lpf (0-5) 10/16/22 04:42 U Epithel Cells (Auto) 0-5 /lpf (0-5) 10/16/22 04:42 Urine Bacteria (Auto) 4+ (Negative) H 10/16/22 04:42 SARS-CoV-2, RNA, NAAT NEGATIVE (NEGATIVE) 10/16/22 04:42 Impressions Chest X-Ray 10/16/22 04:24 XR chest 1V portable CLINICAL HISTORY: Sepsis. COMPARISON STUDY: Chest radiograph and chest CT July 01, 2022. FINDINGS: Lung volumes are normal. There is no consolidation to suggest pneumonia. Linear right midlung density represents atelectasis or scarring. Linear density within the left lung base favors atelectasis. There is no pneumothorax or pleural effusion. Cardiomegaly is unchanged. Mediastinal contours are normal. There is no evidence for pulmonary edema. IMPRESSION: No acute cardiopulmonary findings. No change in appearance of the chest. ACT 112: Negative or not required by law. Electronically signed by: Mane Donovan M.D. 10/16/2022 7:22 AM Abdomen/Pelvis CT 10/16/22 06:45 CT OF THE ABDOMEN AND PELVIS WITH CONTRAST CLINICAL HISTORY: Abdominal pain, nausea and vomiting. COMPARISON STUDY: CT of the abdomen and pelvis July 01, 2022. TECHNIQUE: Following IV administration of 94 mL of Optiray, axial images of the abdomen and pelvis were obtained from the lung bases to the proximal femurs. Images were reviewed in the axial, sagittal, and coronal planes. IV contrast was administered without complication. Automated exposure control was utilized for the study. A dose lowering technique was utilized adhering to the principles of ALARA. CT DOSE: 266.18 mGy.cm FINDINGS: No pneumatosis, free air or portal venous gas is present. Subpleural opacities within the lower lungs represent atelectasis. The liver, spleen, adrenal glands and pancreas are unremarkable. There is no biliary or pancreatic ductal dilatation. Water attenuation bilateral renal lesions reflect cysts. There is no hydronephrosis. A patent left renal vein stent is noted. A moderate amount of stool within the colon and rectum is present. There is no evidence for a bowel obstruction. There is possible visualization of a normal appendix on axial image 290 of 436. Note is made of nonspecific right abdominal mesenteric inflammation. No fluid collection is present. There is trace fluid within the right lower quadrant as well. No fluid collection is identified. There is no lymphadenopathy. The prostate is enlarged, measuring 6 cm in transverse dimension. There is asymmetric right lateral bladder wall thickening. Healing right pubic ring fractures are noted. There are also healing bilateral sacral ala fractures. IMPRESSION: 1. Right abdominal mesenteric edema and stranding. This represents nonspecific inflammation. The etiology for this finding is not clear on this examination and close clinical follow-up is recommended. If progressive symptoms, short-term follow-up CT of the abdomen and pelvis with IV contrast is recommended. 2. Moderate amount of stool within the colon and rectum. No bowel obstruction. 3. Asymmetric right lateral bladder wall thickening. This is nonspecific and could be correlated with urinalysis and cystoscopy. Enlarged prostate. ACT 112: Negative or not required by law. Electronically signed by: Mane Donovan M.D. 10/16/2022 8:03 AM
[2022-10-20] MEDS: POLYETHYLENE (MIRALAX) 17 GM PACK PO SCH (15:35)
[2022-10-21] MEDS: SODIUM CHLORIDE 0.9% 1000ML 1,000 ML IV SCH ×3 (05:33→15:09)
[2022-10-21] MEDS: HEPARIN SOD 5,000 UNIT/0.5 ML VIAL SQ SCH ×3 (05:36→21:54)
[2022-10-21] MEDS ORDERED: MoRPHine SULFATE 2 MG/ML CARP IV STA (06:06)
[2022-10-21] MEDS: ADVANCED PROBIOTIC 1250 MG CAPSULE PO SCH (07:38)
[2022-10-21] MEDS: amLODIPine BESYLATE 5 MG TAB PO SCH (07:38)
[2022-10-21] MEDS: CARBIDOPA/LEVODOPA 25/100MG TAB PO SCH ×3 (07:39→17:34)
[2022-10-21] MEDS: POLYETHYLENE (MIRALAX) 17 GM PACK PO SCH (07:39)
[2022-10-21 08:10] LABS: Basophils # (auto) 0.05 K/uL (0-0.2); Basophils % (auto) 0.7 %; Eosinophils # (auto) 0.23 K/uL (0-0.50); Eosinophils % (auto) 3.2 %; Hematocrit (blood only) 34.4 % (42.0-52.0); Hemoglobin 11.5 g/dl (14.0-18.0); Immature Granulocytes # (auto) 0.11 K/uL (0.01-0.20); Immature Granulocytes % (auto) 1.5 %; Lymphocytes # (auto) 2.02 K/uL (1.2-3.4); Lymphocytes % (auto) 27.8 %; Mean Corpuscular Hemoglobin 32.3 pg (25.0-34.0); Mean Corpuscular Hgb Conc 33.4 g/dL (32.0-36.0); Mean Corpuscular Volume 96.6 fL (80.0-100.0); Mean Platelet Volume 11.2 fL (9.4-12.4); Monocytes # (auto) 0.79 K/uL (0.11-0.59); Monocytes % (auto) 10.9 %; Neutrophils # (auto) 4.07 K/uL (1.40-6.50); Neutrophils % (auto) 55.9 %; Platelet Count 244 K/uL (130-400); RDW Coefficient of Variation 12.8 % (11.5-14.5); RDW Standard Deviation 45.8 fL (36.4-46.3); Red Blood Count 3.56 M/uL (4.70-6.10); White Blood Count 7.27 K/ul (4.8-10.8)
[2022-10-21 08:26] LABS: Albumin Globulin Ratio 1.1 (0.9-2); Albumin Level 3.1 gm/dl (3.4-5.0); BUN Creatinine Ratio 30.8 (10-20); Bilirubin,Total 0.2 mg/dl (0.2-1.0); Calcium 8.5 mg/dl (8.6-10.3); Creatinine Clr Calc Pharmacy 69.3 ml/min; Est GFR (African American) 99.5 ml/min; Est GFR (Non-African American) 85.9 ml/min; Globulin 2.8 gm/dl (2.5-4.0); Total Protein 5.9 gm/dl (6.0-8.3)
[2022-10-21] MEDS ORDERED: SODIUM CHLORIDE 0.9% 1000ML 500 ML IV ONE (10:14)
[2022-10-21] MEDS: cefTRIAXone SODIUM 2,000 MG in DEXTROSE 5% 50 ML IV SCH (11:29)
--- NOTE | 2022-10-21 14:50 | Hospitalist Progress Note ---
Date of Service October 21, 2022 Assessment & Plan (1) Sepsis: Plan: Secondary To complicated UTI In the setting of intermittent catheter use History of BPH Patient uses condom catheter at night due to urinary frequency CT abdomen pelvis: 1. Right abdominal mesenteric edema and stranding. This represents nonspecific inflammation. The etiology for this finding is not clear on this examination and close clinical follow-up is recommended. If progressive symptoms, short-term follow-up CT of the abdomen and pelvis with IV contrast is recommended. 2. Moderate amount of stool within the colon and rectum. No bowel obstruction. 3. Asymmetric right lateral bladder wall thickening. This is nonspecific and could be correlated with urinalysis and cystoscopy. Enlarged prostate. Urine culture: E. coli pansensitive Blood cultures: Negative Clinically improved, afebrile Continue on antibiotic day 6 with ceftriaxone. Transition to oral cefdinir or cefuroxime upon discharge x4 more days to complete 10-day course Patient and family advised to stop performing condom catheter placement Near syncope secondary to orthostatic hypotension -On the morning of October 20, patient became dizzy with drop in blood pressure when standing up. 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 chronic anemia; labs reviewed; hemoglobin at baseline. Hypokalemia secondary to emesis-replaced Hyperglycemia rule out DM-A1c 5.8 Malnutrition, low BMI Dietitian consult Re: Low BMI PT OT eval once medically stable DVT prophylaxis. Heparin subcu DNR -discussed with patient Disposition Patient continues to be hospitalized due to orthostatic hypotension. Currently receiving IV hydration. Please note the above document was generated using voice recognition software. It may contain grammatical, syntax or spelling errors. Any formal questions or concerns about the content, text or information contained within the body of this dictation should be directly addressed to the provider for clarification Admission and Anticipated Discharge Date Admission Date: October 16, 2022 Subjective Patient seen and examined at bedside. He is sitting up on the chair at the side of the bed; not in any distress. He is alert oriented x3. He was found to have orthostatic hypotension on evaluation today as well. Review of Systems Review of Systems: All systems reviewed & are unremarkable except as noted in Subjective Physical Exam Physical Exam: General- oriented x 3, not in distress, speaks in sentences with no effort or accessory muscle use Eyes- anicteric Neck- no JVD Lungs- clear BS bilaterally, no rales/wheezes Heart- normal rate, regular rhythm; no murmurs Abdomen- normal bowel sounds, nondistended, soft, no tenderness Extremities- no pretibial edema, no calf tenderness Neuro- alert, oriented x 3; no gross focal neurologic deficits Skin- warm & dry Results & Data Results & Data Vital Signs (Past 12 Hours) Vital Signs Temp Pulse Pulse Resp BP Pulse Ox O2 Del Method 10/21/22 11:18 36.3 C L 66 19 127/73 97 Room Air 10/21/22 08:50 Room Air 10/21/22 08:11 36.5 C 63 18 173/89 H 95 Room Air 10/21/22 07:28 68 10/21/22 03:39 36.6 C 68 16 176/101 H 96 Room Air Laboratory Results Laboratory Results WBC 7.27 K/ul (4.8-10.8) 10/21/22 07:17 RBC 3.56 M/uL (4.70-6.10) L 10/21/22 07:17 Hgb 11.5 g/dl (14.0-18.0) L 10/21/22 07:17 Hct 34.4 % (42.0-52.0) L 10/21/22 07:17 MCV 96.6 fL (80.0-100.0) 10/21/22 07:17 MCH 32.3 pg (25.0-34.0) 10/21/22 07:17 MCHC 33.4 g/dL (32.0-36.0) 10/21/22 07:17 RDW Std Deviation 45.8 fL (36.4-46.3) 10/21/22 07:17 RDW Coeff of Olena 12.8 % (11.5-14.5) 10/21/22 07:17 Plt Count 244 K/uL (130-400) 10/21/22 07:17 MPV 11.2 fL (9.4-12.4) 10/21/22 07:17 Immature Gran % (Auto) 1.5 % 10/21/22 07:17 Neut % (Auto) 55.9 % 10/21/22 07:17 Lymph % (Auto) 27.8 % 10/21/22 07:17 [place] % (Auto) 10.9 % 10/21/22 07:17 Eos % (Auto) 3.2 % 10/21/22 07:17 Baso % (Auto) 0.7 % 10/21/22 07:17 Neut # (Auto) 4.07 K/uL (1.40-6.50) 10/21/22 07:17 Lymph # (Auto) 2.02 K/uL (1.2-3.4) 10/21/22 07:17 [place] # (Auto) 0.79 K/uL (0.11-0.59) H 10/21/22 07:17 Eos # (Auto) 0.23 K/uL (0-0.50) 10/21/22 07:17 Baso # (Auto) 0.05 K/uL (0-0.2) 10/21/22 07:17 Immature Gran # (Auto) 0.11 K/uL (0.01-0.20) 10/21/22 07:17 RBC Morphology Unremarkable 10/16/22 04:42 Sodium 137 mmol/L (136-145) 10/21/22 07:17 Potassium 4.0 mmol/L (3.5-5.1) 10/21/22 07:17 Chloride 104 mmol/L (98-107) 10/21/22 07:17 Carbon Dioxide 28 mmol/L (21-32) 10/21/22 07:17 Anion Gap 5 (3-11) 10/21/22 07:17 BUN 24 mg/dl (6-23) H 10/21/22 07:17 Creatinine 0.78 mg/dl (0.6-1.4) 10/21/22 07:17 Est Cr Clr Drug Dosing 69.3 ml/min 10/21/22 07:17 Est GFR ( Amer) 99.5 ml/min 10/21/22 07:17 Est GFR (Non-Af Amer) 85.9 ml/min 10/21/22 07:17 BUN/Creatinine Ratio 30.8 (10-20) H 10/21/22 07:17 Glucose 94 mg/dl (70-99(Fasting)) 10/21/22 07:17 POC Glucose 129 mg/dl (70-99) H 10/16/22 05:14 Estimat Average Glucose 120 mg/dl 10/16/22 04:42 Hemoglobin A1c 5.8 % (4.5-5.6) H 10/16/22 04:42 Lactate 0.9 mmol/L (0.4-2.0) 10/16/22 04:42 Calcium 8.5 mg/dl (8.6-10.3) L 10/21/22 07:17 Magnesium 1.8 mg/dl (1.7-2.4) 10/16/22 04:42 Total Bilirubin 0.2 mg/dl (0.2-1.0) 10/21/22 07:17 Direct Bilirubin 0.1 mg/dl (0-0.2) 10/16/22 04:42 AST 32 U/L (13-39) 10/21/22 07:17 ALT 29 U/L (7-52) 10/21/22 07:17 Alkaline Phosphatase 95 U/L (34-104) 10/21/22 07:17 Troponin I High Sens 9.4 pg/ml (0-20) 10/16/22 04:42 Total Protein 5.9 gm/dl (6.0-8.3) L 10/21/22 07:17 Albumin 3.1 gm/dl (3.4-5.0) L 10/21/22 07:17 Globulin 2.8 gm/dl (2.5-4.0) 10/21/22 07:17 Albumin/Globulin Ratio 1.1 (0.9-2) 10/21/22 07:17 Procalcitonin < 0.05 ng/ml (0-0.5) 10/16/22 04:42 TSH 4.091 uIu/ml (0.300-4.500) 10/16/22 04:42 Urine Color Yellow 10/16/22 04:42 Urine Appearance Cloudy (Clear) A 10/16/22 04:42 Urine pH 6.0 (4.5-7.5) 10/16/22 04:42 Ur Specific [place] 1.019 (1.000-1.030) 10/16/22 04:42 Urine Protein 1+ (Negative) H 10/16/22 04:42 Urine Glucose (UA) Negative (Negative) 10/16/22 04:42 Urine Ketones Trace (Negative) H 10/16/22 04:42 Urine Blood 3+ (Negative) H 10/16/22 04:42 Urine Nitrite Positive (Negative) A 10/16/22 04:42 Urine Bilirubin Negative (Negative) 10/16/22 04:42 Urine Urobilinogen Negative (Negative) 10/16/22 04:42 Ur Leukocyte Esterase 1+ (Negative) H 10/16/22 04:42 Urine WBC (Auto) >30 /hpf (0-5) H 10/16/22 04:42 Urine RBC (Auto) >30 /hpf (0-4) H 10/16/22 04:42 U Hyaline Cast (Auto) 1-5 /lpf (0-5) 10/16/22 04:42 U Epithel Cells (Auto) 0-5 /lpf (0-5) 10/16/22 04:42 Urine Bacteria (Auto) 4+ (Negative) H 10/16/22 04:42 SARS-CoV-2, RNA, NAAT NEGATIVE (NEGATIVE) 10/16/22 04:42 Impressions Chest X-Ray 10/16/22 04:24 XR chest 1V portable CLINICAL HISTORY: Sepsis. COMPARISON STUDY: Chest radiograph and chest CT July 01, 2022. FINDINGS: Lung volumes are normal. There is no consolidation to suggest pne umonia. Linear right midlung density represents atelectasis or scarring. Linear density within the left lung base favors atelectasis. There is no pneumothorax or pleural effusion. Cardiomegaly is unchanged. Mediastinal contours are normal. There is no evidence for pulmonary edema. IMPRESSION: No acute cardiopulmonary findings. No change in appearance of the chest. ACT 112: Negative or not required by law. Electronically signed by: Mane Donovan M.D. 10/16/2022 7:22 AM Abdomen/Pelvis CT 10/16/22 06:45 CT OF THE ABDOMEN AND PELVIS WITH CONTRAST CLINICAL HISTORY: Abdominal pain, nausea and vomiting. COMPARISON STUDY: CT of the abdomen and pelvis July 01, 2022. TECHNIQUE: Following IV administration of 94 mL of Optiray, axial images of the abdomen and pelvis were obtained from the lung bases to the proximal femurs. Images were reviewed in the axial, sagittal, and coronal planes. IV contrast was administered without complication. Automated exposure control was utilized for the study. A dose lowering technique was utilized adhering to the principles of ALARA. CT DOSE: 266.18 mGy.cm FINDINGS: No pneumatosis, free air or portal venous gas is present. Subpleural opacities within the lower lungs represent atelectasis. The liver, spleen, adrenal glands and pancreas are unremarkable. There is no biliary or pancreatic ductal dilatation. Water attenuation bilateral renal lesions reflect cysts. There is no hydronephrosis. A patent left renal vein stent is noted. A moderate amount of stool within the colon and rectum is present. There is no evidence for a bowel obstruction. There is possible visualization of a normal appendix on axial image 290 of 436. Note is made of nonspecific right abdominal mesenteric inflammation. No fluid collection is present. There is trace fluid within the right lower quadrant as well. No fluid collection is identified. There is no lymphadenopathy. The prostate is enlarged, measuring 6 cm in transverse dimension. There is asymmetric right lateral bladder wall thickening. Healing right pubic ring fractures are noted. There are also healing bilateral sacral ala fractures. IMPRESSION: 1. Right abdominal mesenteric edema and stranding. This represents nonspecific inflammation. The etiology for this finding is not clear on this examination and close clinical follow-up is recommended. If progressive symptoms, short-term follow-up CT of the abdomen and pelvis with IV contrast is recommended. 2. Moderate amount of stool within the colon and rectum. No bowel obstruction. 3. Asymmetric right lateral bladder wall thickening. This is nonspecific and could be correlated with urinalysis and cystoscopy. Enlarged prostate. ACT 112: Negative or not required by law. Electronically signed by: Mane Donovan M.D. 10/16/2022 8:03 AM
[2022-10-22] MEDS: SODIUM CHLORIDE 0.9% 1000ML 1,000 ML IV SCH (02:04)
[2022-10-22] MEDS: HEPARIN SOD 5,000 UNIT/0.5 ML VIAL SQ SCH ×2 (05:28→14:42)
[2022-10-22 06:40] LABS: Basophils # (auto) 0.06 K/uL (0-0.2); Basophils % (auto) 0.9 %; Eosinophils # (auto) 0.24 K/uL (0-0.50); Eosinophils % (auto) 3.8 %; Hematocrit (blood only) 34.4 % (42.0-52.0); Hemoglobin 11.9 g/dl (14.0-18.0); Immature Granulocytes # (auto) 0.11 K/uL (0.01-0.20); Immature Granulocytes % (auto) 1.7 %; Lymphocytes # (auto) 1.92 K/uL (1.2-3.4); Lymphocytes % (auto) 30.2 %; Mean Corpuscular Hemoglobin 32.7 pg (25.0-34.0); Mean Corpuscular Hgb Conc 34.6 g/dL (32.0-36.0); Mean Corpuscular Volume 94.5 fL (80.0-100.0); Mean Platelet Volume 10.8 fL (9.4-12.4); Monocytes # (auto) 0.72 K/uL (0.11-0.59); Monocytes % (auto) 11.3 %; Neutrophils # (auto) 3.31 K/uL (1.40-6.50); Neutrophils % (auto) 52.1 %; Platelet Count 235 K/uL (130-400); RDW Coefficient of Variation 12.6 % (11.5-14.5); RDW Standard Deviation 43.9 fL (36.4-46.3); Red Blood Count 3.64 M/uL (4.70-6.10); White Blood Count 6.36 K/ul (4.8-10.8)
[2022-10-22 07:09] LABS: BUN Creatinine Ratio 28.8 (10-20); Calcium 8.4 mg/dl (8.6-10.3); Creatinine Clr Calc Pharmacy 81.9 ml/min; Est GFR (African American) 106.6 ml/min
[2022-10-22] MEDS: amLODIPine BESYLATE 5 MG TAB PO SCH (08:02)
[2022-10-22] MEDS: POLYETHYLENE (MIRALAX) 17 GM PACK PO SCH (08:02)
[2022-10-22] MEDS: ADVANCED PROBIOTIC 1250 MG CAPSULE PO SCH (08:02)
[2022-10-22] MEDS: CARBIDOPA/LEVODOPA 25/100MG TAB PO SCH ×2 (08:02→11:51)
[2022-10-22] MEDS: cefTRIAXone SODIUM 2,000 MG in DEXTROSE 5% 50 ML IV SCH (11:49)
--- NOTE | 2022-10-22 14:53 | Discharge Summary ---
Date of Service October 22, 2022 Admission HPI Per Admitting Provider History obtained from patient, family, and records. Medical history significant for PVD, valvular heart disease (mild MR), Parkinson's disease, BPH, chronic back pain, chronic anemia (baseline hemoglobin 11-12). Last confinement June 2022 for rib and pelvic fractures secondary to fall. Patient not feeling well the last few days. Somewhat weaker than usual. Patient noted increase urinary frequency. Urinary retention noted early a.m. by family. Possible condom cath blockage as per daughter. Temperature of 106 at home. Patient somewhat slower than usual. Patient with abdominal pain, nausea, vomiting symptoms. Some back pain. No hematuria noted at home. No headache. IV ceftriaxone administered at the ER. Medical History as above Surgical History : Hernia repair, skin cancer surgery, vascular procedure, bilateral cataract surgeries, Family History : Heart disease, stroke Personal/Social history : Non-smoker, no EtOH intake, retired schoolteacher Admission Exam Per Admitting Provider GENERAL: Comfortable, mild dysarthria (chronic as per family), underweight, no respiratory distress SKIN: Pallor, warm HEENT: Pale palpebral conjunctivae, no ptosis, dry buccal mucosa NECK : Supple, no tenderness CHEST : CTA, no tenderness HEART : RRR, no obvious murmurs ABDOMEN: Some distention, nontender EXTREMITIES : No LE swelling/tenderness, no other conspicuous deformities noted NEUROLOGIC : Coherent, no facial asymmetry, mild dysarthria, gait and stance not assessed Principal Diagnosis Complicated UTI Near syncope secondary to orthostatic hypotension Discharge Exam General- oriented x 3, not in distress, speaks in sentences with no effort or accessory muscle use Eyes- anicteric Neck- no JVD Lungs- clear BS bilaterally, no rales/wheezes Heart- normal rate, regular rhythm; no murmurs Abdomen- normal bowel sounds, nondistended, soft, no tenderness Extremities- no pretibial edema, no calf tenderness Neuro- alert, oriented x 3; no gross focal neurologic deficits Skin- warm & dry Discharge Data Allergies Allergy/AdvReac Type Severity Reaction Status Date / Time doxycycline Allergy Intermediate HOARSENESS,THROAT Verified 07/01/22 13:36 GOT TIGHT grass pollen-perennial rye, Allergy Intermediate CONGESTION, Verified 07/01/22 13:36 standar ITCHY EYES, SNEEZING pollen extracts Allergy Intermediate CONGESTION, Verified 07/01/22 13:36 ITCHY EYES, SNEEZING Sulfa (Sulfonamide Allergy Intermediate Unknown Verified 07/01/22 13:36 Antibiotics) Consultations 10/16/22 06:16 ED Decision to Admit Stat 10/16/22 09:23 Consult General Surgery Routine Ordered Studies 10/16/22 06:45 CT Abd and Pelvis [CT abd pelvis IV con only] Stat Hospital Course (1) Sepsis: Patient is a 81 yo male with PMHx of VD, valvular heart disease (mild MR), Parkinson's disease, BPH, chronic back pain, chronic anemia (baseline hemoglobin 11-12) presented to the hospital with genealized weakness, dysuria and fever. He was treated for following condition during the hospitalization: 1) Sepsis Secondary To complicated UTI In the setting of intermittent catheter use History of BPH CT abdomen showed asymmetric right lateral wall thickening. Urinalysis suggestive of infection Urine culture: E. coli pansensitive Blood cultures: Negative During the hospitalization, he was treated with IV ceftriaxone. At the time of discharge, he was discharged on cefdinir to complete the course. 2) Near syncope secondary to orthostatic hypotension -On the morning of October 20, patient became dizzy with drop in blood pressure when standing up. No fall or focal deficit noted -Found to be orthostatic positive -He was recently started on amlodipine during the hospitalization The likely underlying cause for orthostatic hypotension is medication (amlodipine), sepsis and autonomic dysfunction. He was treated with IV hydration during the hospitalization. At the time of discharge, patient was advised to changes positions slowly and watch out for the symptoms of orthostatic hypotension. All other medication were continued as previously. [facility] Please note the above document was generated using voice recognition software. It may contain grammatical, syntax or spelling errors. Any formal questions or concerns about the content, text or information contained within the body of this dictation should be directly addressed to the provider for clarification Total Time Total Time Spent Total Time Spent (In Minutes): 40 Total Time Includes: Examination of the Patient, Discharge Planning, Medication Reconciliation, Communication With Other Providers and Other Discharge Plan Discharge Items Patient Disposition: Transfer Inpatient Rehab Fac Reason For Visit: SEPSIS Discharge Diagnosis: Complicated UTI Orthostatic hypotension Activity: Resume your previous activity Non-emergency contact: Primary Care Provider Call non-emergency contact if: you have any medication questions and your symptoms worsen Follow-up/Referrals: Murray Vasquez DO [Primary Care Provider] - Diet: Regular Addtl Attending Provider Instructions: You were admitted to the hospital with urinary tract infection. You are treated with IV antibiotic during the hospitalization. You are prescribed cefdinir 300 mg to be taken twice daily for 2 more days to complete the course for the antibiotic. You were found to have orthostatic hypotension. The likely underlying causes for it is the antihypertensives that was started earlier in the hospitalization (amlodipine and lisinopril), UTI and Parkinson's disease. Antihypertensives are discontinued at the discharge. You have to be careful while changing your position from sitting to standing. If you continue to be hypertensive in the rehab, lisinopril 10 mg can be restarted while carefully monitoring for orthostatic hypotension. Although alternatives can be used based on discussion with your primary care doctor. Please follow-up with your primary care doctor. Pending Studies at Discharge: No Stand-Alone Forms: [facility] [employer] Skilled Items Patient informed of condition?: Yes DNR: No Discharge Level of Care: Acute rehab Communicable Disease: No Discharge Prognosis: Stable Lines: None Urinary Catheter: No Medications and DC Order Prescriptions: New polyethylene glycol 3350 [Miralax] 17 gram Powder In Packet 17 g PO DAILY PRN (Reason: constipation) Qty: 14 0RF cefdinir 300 mg capsule 300 mg PO BID 2 Days Qty: 4 0RF Continued cholecalciferol (vitamin D3) [Vitamin D3] 1,000 unit Capsule 1,000 unit PO QAM zinc acetate 25 mg (zinc) Capsule 25 mg PO 3XWK Rx Instructions: [facility] ascorbic acid (vitamin C) [Vitamin C] 500 mg Tablet 500 mg PO 4XWK Rx Instructions: T Sat Sun carbidopa-levodopa 25-100 mg tablet See Rx Instructions .ROUTE .COMPLEX Rx Instructions: Take 2 tabs at breakfast, 2 tabs at lunch and 1 tab at supper. Discharge Orders: Discharge Order (Routine); Ordered 10/22/22 Ordered By: Duncan Payne Admission Data Admit Date/Time: 10/16/22 06:48 Attending Provider: Duncan Payne Admit Provider: Min Meeks Primary Care Provider: Murray Vasquez Other Providers: Min Meeks ; Wilman Sepulveda ; [facility] Other Interventions: Discharge Summary Assessment (RN) Last Done: 10/22/22 13:15
== END 2022-10-22 16:46 | DRG 872 ==
LOC: ED 04:20 → 2W 06:48 → SUATTDRO 06:48 → 2W 08:35